=== PATIENT | male | born 1950 | race Caucasian/White ===

== ENCOUNTER 2021-04-23 05:03 | Observation (INO) | payer OTHER, SELFPAY ==
[2021-04-23] VITALS (66 sets, daily range): BP systolic 94–159; BP diastolic 38–108; PULSE 77–100; RESP 12–26; TEMP 35.3–37; O2SAT 84–100; BMI 28.1
--- NOTE | ~2021-04-23 | XR_ITS ---
EXAMINATION: XR chest 2V DATE: 04/24/2021 14:01 INDICATION: Congestive heart failure TECHNIQUE: PA and lateral views of the chest were obtained. COMPARISON: Chest radiograph dated 04/23/2021 FINDINGS: Very small bilateral pleural effusions. There are some streaky atelectasis along the anterior lung ba ses. No pulmonary edema or pneumothorax. Cardiomegaly. Coronary artery stenting. Bridging syndesmophy lili throughout the thoracic spine suggestive of ankylosing spondylitis with differential including di ffuse idiopathic skeletal hyperostosis (DISH). IMPRESSION: 1. Very small bilateral pleural effusions with mild bibasilar atelectasis. 2. Cardiomegaly. Reviewed, dictated and finalized at location A.
--- NOTE | ~2021-04-23 | XR_ITS ---
EXAMINATION: XR chest 1V portable EXAM DATE: 04/23/2021 06:16 INDICATION: chest pain, midsternal pain, history hypertension diabetes CHF. TECHNIQUE: Portable AP frontal chest x-ray was obtained. There is no prior study for comparison. FINDINGS: There is cardiomegaly and pulmonary vascular congestion. Suspicion of pulmonary edema as we ll. No confluent consolidation, pneumothorax or pleural effusion suspected. There are mild bony degen erative changes. Left axillary stent. IMPRESSION: 1. Findings suspicious for mild CHF exacerbation. Reviewed, dictated and finalized at location A.
--- NOTE | ~2021-04-23 | XR_ITS ---
XR chest 1V portable DATE: 04/25/2021 09:23 INDICATION: Shortness of breath TECHNIQUE: Portable AP chest on 04/25 2021 at 0909 hours COMPARISON: 04/24/2021 PA and lateral views FINDINGS: Cardiomegaly. Aortic calcification. There is pulmonary vascular congestion and redistributi on. There are Luis Alberto B-lines consistent with pulmonary interstitial edema. No pulmonary consolidation . No pleural effusion or pneumothorax. Vascular stent is noted in the region of the left axillary artery. Diffuse osteopenia. IMPRESSION: Cardiomegaly, pulmonary vascular congestion and interstitial edema Reviewed, dictated and finalized at location A.
--- NOTE | 2021-04-23 05:25 | ECG_ITS ---
Measurements Intervals [place] Rate: 93 P: -84 [place]: 160 QRS: 7 QRSD: 116 T: 68 QT: 360 QTc: 449 Interpretive Statements SINUS RHYTHM WITH MARKED FIRST DEGREE AV BLOCK INTRAVENTRICULAR CONDUCTION DELAY BORDERLINE ST ABNORMALITY- ANTEROLATERAL LEADS BASELINE ARTIFACT- I, II, III, AVR, AVL, AVF, V1 ABNORMAL ECG Electronically Signed On 04-23-2021 7:11:54 CDT by Romaine Rivers D.O.
--- NOTE | 2021-04-23 05:46 | ED.GENADULT ---
HPI - General Adult General Chief complaint: Chest Pain <Dominick Zamora MD - Last Filed: 04/23/21 05:47> Stated complaint: sob with cp <Dominick Zamoar MD - Last Filed: 04/23/21 05:47> Time Seen by Provider: 04/23/21 05:12 <Dominick Zamora MD - Last Filed: 04/23/21 05:47> History of Present Illness HPI narrative: Patient 70-year-old gentleman who presents the emergency department with chief complaint of shortness of breath. Patient reports he has history of end-stage renal disease and is on dialysis Wednesday. The patient reports he has been admitted multiple times at [facility] and was just discharged in the last 24 hours. The patient states he went home and has been more short of breath. The patient states he is due for dialysis today but states that he is unable to get a good deep breath and was requiring supplemental oxygen. Patient reports that he had no fever reports has had some nausea with this patient denies vomiting denies diarrhea denies abdominal pain reports he had no chest pain with this <Dominick Zamora MD - Last Filed: 04/23/21 05:47> Related Data Allergies/adverse reactions: Allergies Allergy/AdvReac Type Severity Reaction Status Date / Time No Known Allergies Allergy Verified 04/23/21 05:20 <Dominick Zamora MD - Last Filed: 04/23/21 05:47> Review of Systems Review of Systems: A 10 system review of systems was completed on the patient and is negative except for what is stated in the HPI. Nursing and ancillary documentation was reviewed. <Dominick Zamora MD - Last Filed: 04/23/21 05:47> Exam Narrative: GENERAL: Well-appearing, well-nourished, and in no acute distress. HEAD: Normocephalic, atraumatic. EYES: PERRLA and EOMI. ENT: Nares clear, no rhinorrhea or epistaxis. Mucous membranes moist. NECK: Supple. CHEST: Clear to auscultation. No respiratory distress. HEART: Regular rate and rhythm. No murmur heard. Normal peripheral pulses. ABDOMEN: Soft, nontender, nondistended, normal active bowel sounds. EXTREMITIES: Normal range of motion. No edema. There is an AV fistula present in the left upper extremity SKIN: Warm, dry, no rash. NEURO: No focal deficits. Alert and oriented x3. PSYCH: Normal mood and affect. <Dominick Zamora MD - Last Filed: 04/23/21 05:47> Course Course Emergency Course: DR BAUER <Handy Oh MD - Last Filed: 04/23/21 11:25> Vital Signs Vital signs: Vital Signs Temperature 36.2 C L 04/23/21 05:03 Pulse Rate 93 04/23/21 05:03 Respiratory Rate 20 04/23/21 05:03 Blood Pressure 126/55 L 04/23/21 05:03 Pulse Oximetry 84 L 04/23/21 05:03 Temperature 36.2 C L 04/23/21 05:03 Pulse Rate 86 04/23/21 07:37 Respiratory Rate 13 04/23/21 07:37 Blood Pressure 147/51 H 04/23/21 07:37 Pulse Oximetry 100 04/23/21 07:49 <Dominick Zamora MD - Last Filed: 04/23/21 05:47> Vital Signs Temperature 36.2 C L 04/23/21 05:03 Pulse Rate 93 04/23/21 05:03 Respiratory Rate 20 04/23/21 05:03 Blood Pressure 126/55 L 04/23/21 05:03 Pulse Oximetry 84 L 04/23/21 05:03 Temperature 36.2 C L 04/23/21 05:03 Pulse Rate 86 04/23/21 07:37 Respiratory Rate 13 04/23/21 07:37 Blood Pressure 147/51 H 04/23/21 07:37 Pulse Oximetry 100 04/23/21 07:49 <Handy Oh MD - Last Filed: 04/23/21 11:25> Medical Decision Making Vital Signs Vital Signs: Vital Signs Temperature 36.2 C L 04/23/21 05:03 Pulse Rate 93 04/23/21 05:03 Respiratory Rate 20 04/23/21 05:03 Blood Pressure 126/55 L 04/23/21 05:03 Pulse Oximetry 84 L 04/23/21 05:03 Temperature 36.2 C L 04/23/21 05:03 Pulse Rate 86 04/23/21 07:37 Respiratory Rate 13 04/23/21 07:37 Blood Pressure 147/51 H 04/23/21 07:37 Pulse Oximetry 100 04/23/21 07:49 <Dominick Zamora MD - Last File
[2021-04-23 06:25] LABS: Basophils Absolute Auto 0.1 K/mm3 (0.0-0.1); Basophils Percent Auto 0.5 % (0.2-1.2); Eosinophils Absolute Auto 0.2 K/mm3 (0-0.3); Eosinophils Percent Auto 2.4 % (0-4.4); Hematocrit 27.3 % (42.0-52.0); Hemoglobin 8.6 g/dL (14.0-18.0); Immature Granulocyte Absolute 0.05 K/mm3 (0.00-0.031); Immature Granulocyte Percent A 0.5 % (0-0.5); Lymphocytes Absolute Auto 0.93 K/mm3 (0.9-3.2); Lymphocytes Percent Auto 9.7 % (18.3-44.2); Mean Corpuscular HGB Conc 31.5 g/dl (32-36); Mean Corpuscular Hemoglobin 28.3 pg (26-34); Mean Corpuscular Volume 89.8 fl (80-100); Mean Platelet Volume 11.2 fl (7.4-10.4); Monocytes Absolute Auto 0.5 K/mm3 (0.1-0.6); Monocytes Percent Auto 4.7 % (2.6-8.5); Neutrophils Absolute Auto 7.9 K/mm3 (1.3-6.7); Neutrophils Percent Auto 82.2 % (45.5-73.1); Platelet Count Result 197 k/mm3 (150-375); Red Blood Count 3.04 M/mm3 (4.6-6.20); Red Cell Distribution Width 17.3 % (11.5-14.5); White Blood Count 9.6 K/mm3 (4.5-10.0)
[2021-04-23 06:38] LABS: Alanine Aminotransferase 11 U/L (4-50); Albumin Level 4.3 g/dL (3.5-5.1); Alkaline Phosphatase 145 U/L (38-126); Anion Gap 15 mmol/L (8-16); Aspartate Amino Transferase 21 U/L (17-59); Bilirubin,Total 0.8 mg/dL (0.2-1.3); Blood Urea Nitrogen 48 mg/dL (9-20); Calcium 9.4 mg/dL (8.4-10.2); Carbon Dioxide 24 mmol/L (22-30); Chloride 95 mmol/L (98-107); Estimated CRCL calculation 8 ml/min; Estimated Glomerular Filt Rate 7; Glucose 97 mg/dL (65-110); Lipase 53 U/L (23-300); Potassium 3.8 mmol/L (3.4-5.0); Sodium 134 mmol/L (137-145)
[2021-04-23 06:46] LABS: NT Pro B Type Natriuretic Pept > 35000 pg/mL (5-100)
[2021-04-23 06:52] LABS: INR 3.8; Prothrombin Time 36.3 Seconds (11.1-14.7)
[2021-04-23 07:02] LABS: Troponin I 0.288 ng/mL (0.000-0.034)
[2021-04-23 07:24] LABS: Partial Thromboplastin Time 51.5 SECONDS (22.3-36.8)
--- NOTE | 2021-04-23 07:26 | PC.NURSE ---
Received report from Summer RN no further questions or concerns, pt alert and awake, states he doesn't need anything at this time
--- NOTE | 2021-04-23 07:33 | PC.NURSE ---
PHI request faxed to [facility] at this time.
[2021-04-23 09:37] LABS: Troponin I 0.295 ng/mL (0.000-0.034)
[2021-04-23 12:21] LABS: Troponin I 0.323 ng/mL (0.000-0.034)
--- NOTE | 2021-04-23 12:52 | PC.NURSE ---
Called report to Chelle WILLIAM no further questions or concerns
--- NOTE | 2021-04-23 13:49 | PM.IMHP ---
H&P: HPI History of Present Illness Date/Time: 04/23/21 13:49Thiviki is a 70-year-old male patient who has a history of end-stage renal disease with dialysis on Wednesday. He also has a history of diabetes and congestive heart failure. The patient stated he was just discharged from [facility] the last 24 hours. The patient stated that he is been admitted to [facility] several times this year. The patient typically sees Dr. Sandoval as his household assistant. The patient stated when he was discharged yesterday he initially felt fine but then he started vomiting today. He felt very sick to his stomach. Instead of going to dialysis today he came to the emergency room. The patient lives home alone. The patient also stated that he is more short of breath. He stated that he was assessed for sleep apnea and was told that he does have mild sleep apnea but does not have CPAP machine. The patient does not typically wear oxygen at home but feels that he needs home oxygen. The patient is currently on oxygen at 3 L per nasal cannula. H&H is 8.6 and 27.3. Creatinine is 7.4. Dr. Garcia was consulted for Nephrology. Patient's troponin is 0.288 and 0.323. BNP greater than 35,000. patient denies any shortness of breath at this time but states he short of breath with exertion and he cannot lay flat. The patient has no chest pain. Chest x-ray was read as findings suspicious for mild CHF. Patient's low was pulse ox was noted to be 84%. Patient was given aspirin and normal saline in the emergency room. The patient is being admitted for observation on the date of service of 04/23/2021. Chief Complaint: Dyspnea Review of Systems Review of Systems: All systems reviewed & are unremarkable except as noted in HPI and below Constitutional: Constitutional: Reports as per HPI and Reports no additional constitutional complaints Eyes: Eyes: Reports as per HPI and Reports no additional eye complaints ENT: Reports system reviewed and no additional complaints, except as documented and Reports Normal hearing present Cardiovascular: Cardiovascular: Reports no additional cardiovascular complaints Respiratory: Respiratory: Reports no additional respiratory complaints and Reports no additional respiratory complaints Gastrointestinal: Gastrointestinal: Reports as per HPI and Reports no additional gastrointestinal complaints Musculoskeletal: Musculoskeletal: Reports no additional musculoskeletal complaints Integumentary/Breasts: Skin/Breast: Reports system reviewed and no additional complaints, except as docu and Reports as per HPI Neurologic: Reports system reviewed and no additional complaints, except as documented, Reports as per HPI and Reports Normal hearing present Psychiatric: Psychiatric: Reports no additional psychiatric complaints and Reports as per HPI Endocrine: Endocrine: Reports no additional endocrine complaints Hematologic/Lymphatic: Hematologic/Lymphatic: Reports no additional hematologic/lymphatic complaints Allergic/Immunologic: Allergic/Immunologic: Reports no additional allergic/immunologic complaints PMFSH Past Medical History Medical History (Updated 04/23/21 @ 13:59 by Alaina Mills NP) Anemia of chronic disease AV fistula CHF (congestive heart failure) DM2 (diabetes mellitus, type 2) End-stage renal disease on hemodialysis Generalized anxiety disorder Heart valve disease Hyperlipidemia Hypertension Tobacco abuse Surgical History Surgical History (Updated 04/23/21 @ 13:59 by Alaina Mills NP) Cataract extraction status H/O heart artery stent History of tonsillectomy History of total left hip arthroplasty Hx of cholecystectomy Family History Family History (Updated 04/23/21 @ 14:01 by Alaina Mills NP) Sibling 2019 novel coronavirus-infected pneumonia (NCIP) Mother Heart disease congestive heart failure Father Heart disease Social History Social History (Update
--- NOTE | 2021-04-23 14:00 | ADMGEN ---
This patient, William Valentin, was admitted to IMU Room 204-01 at 1320 on 04-23-21. Patient/family oriented to hospital policies and general routines including ID bracelet, bed and alarms, visiting hours, pain management, procedures, bathroom and other care routines, personal items, smoking policy, room service/diet, and visiting hours. Information on how to activate the Rapid Response Team has been discussed. Patient/Family are encouraged to report perceived risks to care and to ask questions if they do not understand what they are told or what they should do.
[2021-04-23] MEDS: SODIUM CHLORIDE 0.9% IV 1,000 ML 100 ML IV CONT (14:15)
[2021-04-23] MEDS: ONDANSETRON INJ 4 MG/2 ML VIAL IV PUSH (15:00)
--- NOTE | 2021-04-23 16:54 | PM.PNNEP ---
Progress Note: A&P Assessment and Plan (1) End stage renal disease: Code(s): N18.6 - End stage renal disease Status: Chronic Assessment and Plan: HD today and continue M/W/F dialysis schedule follow electrolytes, volume status, and clearance FULL CONSULT to follow. Subjective Date/time seen: 04/23/21 16:54 Tolerating dialysis treatment at the time of my visit (seen on HD at 4:45PM); no apparent distress noted; no other complaints voiced currently. Exam Narrative: General: WD/WN male in NAD Heart: normal S1 and S2; no rub Lungs: decreased at bases Abdomen: soft, nontender, nondistended, positive bowel sounds Extremities: no cyanosis or clubbing; trace edema Skin: warm and dry Objective Data Vital Signs Vital Signs: Vital Signs Temp Pulse Resp BP Pulse Ox 04/23/21 16:30 81 125/57 L 04/23/21 16:15 78 134/57 L 04/23/21 16:00 79 136/59 L 04/23/21 15:45 78 141/59 H 04/23/21 15:30 80 132/58 L 04/23/21 15:15 81 136/62 04/23/21 14:56 84 150/63 H 04/23/21 14:48 36.7 C 85 18 137/64 04/23/21 14:00 90 04/23/21 13:50 36.8 C 84 12 128/108 H 94 04/23/21 12:49 88 18 127/49 L 100 04/23/21 12:48 90 20 159/53 H 04/23/21 12:45 87 17 04/23/21 12:32 86 19 04/23/21 12:31 86 15 114/94 H 04/23/21 12:16 88 22 H 94/65 L 04/23/21 12:15 86 14 04/23/21 12:01 83 17 149/87 H 04/23/21 12:00 86 18 04/23/21 11:48 82 13 138/49 L 100 04/23/21 11:46 83 17 127/41 L 100 04/23/21 11:45 82 15 100 04/23/21 11:44 82 16 144/49 H 100 04/23/21 11:30 85 14 04/23/21 11:15 88 18 04/23/21 11:00 88 19 04/23/21 10:45 87 12 04/23/21 10:30 87 16 04/23/21 10:15 87 15 04/23/21 10:00 88 19 04/23/21 09:45 87 15 04/23/21 09:30 88 21 H 04/23/21 09:15 87 26 H 04/23/21 09:00 90 17 04/23/21 08:45 90 19 04/23/21 08:30 88 16 04/23/21 08:17 87 18 138/52 L 04/23/21 08:15 89 16 90 04/23/21 08:01 91 12 142/74 H 96 04/23/21 08:00 90 20 04/23/21 07:49 100 04/23/21 07:45 91 15 100 04/23/21 07:37 86 13 147/51 H 100 04/23/21 07:32 88 14 147/51 H 100 04/23/21 07:30 91 15 100 04/23/21 07:17 91 13 144/70 H 100 04/23/21 07:15 89 12 100 04/23/21 07:02 89 17 150/48 H 100 04/23/21 07:00 92 16 99 04/23/21 06:46 91 16 147/61 H 93 04/23/21 06:45 92 15 100 04/23/21 06:33 91 17 100 04/23/21 06:32 90 15 151/56 H 100 04/23/21 06:17 89 17 139/62 97 04/23/21 06:11 89 21 H 140/55 L 99 04/23/21 05:03 36.2 C L 93 20 126/55 L 96 Meds/Results Medications: Active Medications Generic Name Dose Route Start Last Admin Trade Name Freq PRN Reason Stop Dose Admin Dextrose 12.5 gm 04/23/21 14:09 Dextrose 50% 25 Gm/50 Ml Syringe IV PUSH PRN PRN Hypoglycemia Protocol Epoetin Alberto-epbx 10,000 units 04/23/21 19:23 Epoetin Alberto-Epbx 10,000 Units/Ml Vial IV PUSH 04/23/21 19:24 ONCE ONE Glucagon 1 mg 04/23/21 14:09 Glucagon For Inj 1 Mg Vial IM PRN PRN Hypoglycemia Protocol Glucose 15 gm 10/13/21 14:09 Glucose Oral Gel 15 Gm Of Glucse In 37.5 Gm Tube PO PRN PRN Hypoglycemia Protocol Acetaminophen 650 mg in 65 mls @ 260 mls/hr 04/23/21 11:21 Ofirmev 650 Mg Ivpb IVPB 04/24/21 11:20 Q6H PRN Mild Pain (1-3) or Fever Albumin Human 50 mls @ 999 mls/hr 04/23/21 12:22 Albutein IVPB 05/23/21 12:21 Q10M PRN HYPOTENSION Dextrose 1,000 mls @ 100 mls/hr 04/23/21 14:09 Dextrose 5% 1,000 Ml IVPB PRN PRN Hypoglycemia Protocol Insulin Aspart 2 - 5 units 04/23/21 17:00 Insulin Aspart (*Bkc) 100 Units/Ml SUB-Q TIDWM OTONIEL Protocol Nicotine 1 patch 04/24/21 09:00 Nicotine (*Pbkc) 21 Mg Patch TRANSDERM QA
[2021-04-23 16:55] LABS: Hepatitis B Surface Antigen Negative (Negative)
[2021-04-23 17:20] LABS: Hepatitis B Surface Anti Res Positive
[2021-04-23 18:49] LABS: Glucose Point of Care 107 mg/dl (65-105)
[2021-04-23] MEDS: rOPINIRole HCL 1 MG TABLET 3 MG PO (20:00)
[2021-04-23] MEDS: QUEtiapine FUMARATE 100 MG TABLET PO (20:00)
[2021-04-23] MEDS: PANTOPRAZOLE 40 MG TABLET PO (20:00)
[2021-04-23 20:23] LABS: Glucose Point of Care 144 mg/dl (65-105)
[2021-04-24] VITALS (15 sets, daily range): BP systolic 120–147; BP diastolic 35–70; PULSE 65–93; RESP 16–20; TEMP 36.4–36.8; O2SAT 92–100
[2021-04-24 04:49] LABS: Basophils Absolute Auto 0.1 K/mm3 (0.0-0.1); Basophils Percent Auto 0.7 % (0.2-1.2); Eosinophils Absolute Auto 0.3 K/mm3 (0-0.3); Eosinophils Percent Auto 3.2 % (0-4.4); Hematocrit 26.3 % (42.0-52.0); Hemoglobin 8.4 g/dL (14.0-18.0); Immature Granulocyte Absolute 0.05 K/mm3 (0.00-0.031); Immature Granulocyte Percent A 0.6 % (0-0.5); Lymphocytes Absolute Auto 1.02 K/mm3 (0.9-3.2); Lymphocytes Percent Auto 11.5 % (18.3-44.2); Mean Corpuscular HGB Conc 31.9 g/dl (32-36); Mean Corpuscular Hemoglobin 28.3 pg (26-34); Mean Corpuscular Volume 88.6 fl (80-100); Mean Platelet Volume 10.6 fl (7.4-10.4); Monocytes Absolute Auto 0.5 K/mm3 (0.1-0.6); Neutrophils Absolute Auto 6.9 K/mm3 (1.3-6.7); Platelet Count Result 206 k/mm3 (150-375); Red Blood Count 2.97 M/mm3 (4.6-6.20); Red Cell Distribution Width 17.3 % (11.5-14.5); White Blood Count 8.9 K/mm3 (4.5-10.0)
[2021-04-24 05:11] LABS: Alanine Aminotransferase 12 U/L (4-50); Albumin Level 4.1 g/dL (3.5-5.1); Alkaline Phosphatase 147 U/L (38-126); Anion Gap 11 mmol/L (8-16); Aspartate Amino Transferase 20 U/L (17-59); Bilirubin,Total 0.6 mg/dL (0.2-1.3); Blood Urea Nitrogen 29 mg/dL (9-20); Calcium 9.5 mg/dL (8.4-10.2); Carbon Dioxide 30 mmol/L (22-30); Chloride 96 mmol/L (98-107); Estimated CRCL calculation 11 ml/min; Estimated Glomerular Filt Rate 11; Glucose 94 mg/dL (65-110); Lactate Dehydrogenase 440 U/L (313-618); Magnesium 1.9 mg/dL (1.6-2.3); Potassium 4.2 mmol/L (3.4-5.0); Sodium 137 mmol/L (137-145)
[2021-04-24 06:00] LABS: Thyroid Stimulating Hormone Reflex 0.686 uIU/mL (0.465-4.68)
[2021-04-24 08:04] LABS: Glucose Point of Care 91 mg/dl (65-105)
[2021-04-24 08:44] LABS: Hemoglobin A1C 5.6 % (<5.7)
[2021-04-24] MEDS: CHOLECALCIFEROL 1,000 UNITS TABLET 2000 UNITS PO (11:18)
[2021-04-24] MEDS: ASPIRIN 81 MG ENTERIC TABLET PO (11:18)
[2021-04-24] MEDS: busPIRone HCL 10 MG TABLET 30 MG PO ×2 (11:18→17:52)
[2021-04-24] MEDS: CLOPIDOGREL BISULFATE 75 MG TABLET PO (11:19)
[2021-04-24] MEDS: cloNIDine HCL 0.1 MG TABLET PO ×3 (11:19→17:53)
[2021-04-24] MEDS: IMIPRAMINE HCL 25 MG TABLET PO (11:20)
[2021-04-24] MEDS: DOCUSATE SODIUM 100 MG CAPSULE PO (11:20)
[2021-04-24] MEDS: FUROSEMIDE 80 MG TABLET PO (11:20)
[2021-04-24] MEDS: FINASTERIDE 5 MG TABLET PO (11:20)
[2021-04-24] MEDS: ISOSORBIDE MONONITRATE 30 MG TAB.ER.24H PO (11:20)
[2021-04-24] MEDS: METOPROLOL SUCCINATE EXT REL 25 MG TABCR PO (11:21)
[2021-04-24] MEDS: PANTOPRAZOLE 40 MG TABLET PO ×2 (11:22→21:09)
[2021-04-24] MEDS: ROSUVASTATIN 10 MG TABLET PO (11:23)
[2021-04-24] MEDS: PREGABALIN (*CRX) 50 MG CAPSULE 100 MG PO (11:29)
--- NOTE | 2021-04-24 12:40 | PM.CNNEP ---
Assessment and Plan Assessment and plan (1) End stage renal disease: Code(s): N18.6 - End stage renal disease Status: Chronic Assessment and Plan: HD yesterday and plan HD tomorrow to maintain M/W/F dialysis schedule follow electrolytes, volume status, and clearance (2) Dyspnea: Qualifiers: Dyspnea type: shortness of breath Qualified Code(s): R06.02 - Shortness of breath Code(s): R06.00 - Dyspnea, unspecified Status: Acute Assessment and Plan: presumably due to pulmonary edema push fluid removal with dialysis in an effort to optimize volume status old records regarding previous Echo requested component of NIC playing a role(?) follow respiratory status (3) Hypertension: Code(s): I10 - Essential (primary) hypertension Status: Chronic Assessment and Plan: reasonable control at this time follow trend of hemodynamics (4) Anemia of chronic disease: Code(s): D63.8 - Anemia in other chronic diseases classified elsewhere Status: Chronic Assessment and Plan: due to ESRD Epogen with HD follow trend of H/H (5) DM2 (diabetes mellitus, type 2): Code(s): E11.9 - Type 2 diabetes mellitus without complications Status: Chronic Assessment and Plan: follow accuchecks glycemic control Will continue to follow. History of Present Illness Reason for Consult Consult date: 04/24/21 Reason for consult: end stage renal disease Chief Complaint Chief complaint: hemodialysis patient,chf,elevated troponin History of Present Illness Narrative: The patient is 70-year-old male patient with a past medical history as outlined below who presented to [facility] Emergency room due to complaints of shortness of breath. He states that his shortness of breath seemed to be more prominent on the morning of admission in association with nausea and vomiting. Apparently, he did not have transportation set up to his outpatient dialysis unit and his dialysis center try to see if 1 of his caregivers could bring him to his dialysis treatment yesterday in effort to get his dialysis treatment done and hopefully improve his symptoms of shortness of breath. For whatever reason, this could not be accomplished and he presented to [facility] ER for further evaluation From my discussion with his outpatient dialysis unit, he was just discharged from [facility] on Wednesday (April 21 2021) and he was supposed to set up his transportation to his dialysis center on the day of admission following discharge from the hospital. He apparently was hospitalized for similar issues with regard to shortness of breath. After his discharge, he initially felt reasonably well up until the next day when he started having the issues and problems with nausea and vomiting subsequently worsened by his shortness of breath. He apparently was assessed for sleep apnea during his hospitalization at [facility] and apparently he does have a degree of this condition but CPAP was not set up on discharge. Given his recurrent and ongoing issues with shortness of breath, the patient feels that he would benefit from home oxygen but I am unclear if he met criteria for this during his last hospitalization. Workup and evaluation emergency room demonstrated the patient to be in no acute distress but reportedly his oxygen saturation was 84% on room air. Routine blood test demonstrated labs consistent with his known history of end-stage renal disease and his CBC was remarkable for anemia with a hemoglobin of 8.6 and hematocrit 27.3. His BNP was greater than 35,000 and his chest x-ray demonstrated evidence of mild CHF. Given his symptoms as well as his complex medical history and recent discharge from the hospital, he was admitted the hospital for dialysis and further intervention. Since his admission, he received dialysis yesterday in effort to darrell
[2021-04-24 12:57] LABS: Glucose Point of Care 121 mg/dl (65-105)
[2021-04-24 14:06] LABS: Prothrombin Time 13.4 Seconds (11.1-14.7)
[2021-04-24 14:24] LABS: Troponin I 0.276 ng/mL (0.000-0.034)
--- NOTE | 2021-04-24 16:40 | PM.IMPN ---
Progress Note: A&P Assessment and Plan (1) FRANCOIS (dyspnea on exertion): Code(s): R06.00 - Dyspnea, unspecified Status: Acute Assessment and Plan: Patient states he has been hospitalized 8 times in the last few months for this - Chest x-ray initially showed mild CHF exacerbation and repeat x-ray after dialysis shows improvement - troponins are elevated but patient has end-stage renal disease which can falsely elevate these enzymes - he is at high risk since he has cardiovascular disease, diabetes, end-stage renal disease, and smokes 2 packs per day. he also has moderate aortic stenosis but the echo states that this has not significantly changed since 2019 - will do stress test in the morning to ensure no pathology. PE seems less likely as there is no tachycardia or hypoxia. may consider CTA of the chest on a dialysis day if stress test is normal - patient needs to quit smoking (2) CHF (congestive heart failure): Qualifiers: Heart failure chronicity: unspecified Heart failure type: unspecified Qualified Code(s): I50.9 - Heart failure, unspecified Code(s): I50.9 - Heart failure, unspecified Status: Chronic Assessment and Plan: resolved. - Echo Earlier this week showed an EF of 71% he also has aortic valve stenosis. The valve area is 1.2 cm. Could be causing his dyspnea on exertion but this is unchanged since 06/10/2020 - consult cardiology (3) Elevated troponin: Code(s): R77.8 - Other specified abnormalities of plasma proteins Status: Acute Assessment and Plan: as above \- no chest pain since being hospitalized (4) Dyspnea: Qualifiers: Dyspnea type: shortness of breath Qualified Code(s): R06.02 - Shortness of breath Code(s): R06.00 - Dyspnea, unspecified Status: Acute Assessment and Plan: As above. The patient does not use oxygen at home. He stated that he recently was diagnosed with mild obstructive sleep apnea after his sleep study. (5) Anemia of chronic disease: Code(s): D63.8 - Anemia in other chronic diseases classified elsewhere Status: Chronic Assessment and Plan: stable, likely due to end-stage renal disease (6) Generalized anxiety disorder: Code(s): F41.1 - Generalized anxiety disorder Status: Chronic Assessment and Plan: chronic and stable (7) DM2 (diabetes mellitus, type 2): Code(s): E11.9 - Type 2 diabetes mellitus without complications Status: Chronic Assessment and Plan: last glucose 121 and A1c 5.6 - continue sliding scale insulin (8) End-stage renal disease on hemodialysis: Code(s): N18.6 - End stage renal disease; Z99.2 - Dependence on renal dialysis Status: Chronic Assessment and Plan: continue dialysis which he usually does on Wednesday, Wednesday and Fridays (9) Macular degeneration: Code(s): H35.30 - Unspecified macular degeneration Status: Chronic Assessment and Plan: chronic and stable (10) Hypertension: Code(s): I10 - Essential (primary) hypertension Status: Chronic Assessment and Plan: last blood pressure 146/41 - continue clonidine, Lasix, Imdur, and metoprolol (11) Tobacco abuse: Code(s): Z72.0 - Tobacco use Status: Chronic Assessment and Plan: patient understands that he needs to quit smoking Additional Plan INR initially elevated but repeat was normal at 1.0. Unclear of clinical significance. Could be a lab error? Patient is not on any anticoagulation and has no evidence of liver disease. Will monitor Time Spent With Patient Time with patient: 25 - 35 minutes Subjective Date/time seen: 04/24/21 16:40 Interval history: Pt is a 70-year-old male here for dyspnea on exertion. Patient states he has been having this dyspnea on exertion for the last 1-2 months. He said prior
[2021-04-24 17:09] LABS: Glucose Point of Care 124 mg/dl (65-105)
[2021-04-24] MEDS: HYDROcodone/acetaminophen (*CRX) 7.5-325 MG TABLET 1 TAB PO (17:55)
[2021-04-24 20:21] LABS: Glucose Point of Care 119 mg/dl (65-105)
[2021-04-24] MEDS: rOPINIRole HCL 1 MG TABLET 3 MG PO (21:08)
[2021-04-24] MEDS: QUEtiapine FUMARATE 100 MG TABLET PO (21:08)
[2021-04-25] VITALS (18 sets, daily range): BP systolic 119–161; BP diastolic 43–68; PULSE 57–77; RESP 20; TEMP 36–37; O2SAT 94–98
[2021-04-25 06:38] LABS: Hematocrit 27.8 % (42.0-52.0); Hemoglobin 8.5 g/dL (14.0-18.0); Mean Corpuscular HGB Conc 30.6 g/dl (32-36); Mean Corpuscular Hemoglobin 28.3 pg (26-34); Mean Corpuscular Volume 92.7 fl (80-100); Mean Platelet Volume 11.3 fl (7.4-10.4); Platelet Count Result 204 k/mm3 (150-375); Red Cell Distribution Width 17.2 % (11.5-14.5); White Blood Count 8.3 K/mm3 (4.5-10.0)
[2021-04-25 06:40] LABS: Prothrombin Time 13.2 Seconds (11.1-14.7)
[2021-04-25 07:14] LABS: Albumin Level 4.2 g/dL (3.5-5.1); Anion Gap 12 mmol/L (8-16); Blood Urea Nitrogen 46 mg/dL (9-20); Calcium 9.4 mg/dL (8.4-10.2); Carbon Dioxide 28 mmol/L (22-30); Chloride 96 mmol/L (98-107); Estimated CRCL calculation 8 ml/min; Estimated Glomerular Filt Rate 7; Glucose 104 mg/dL (65-110); Phosphorus 6.4 mg/dL (2.5-4.5); Potassium 4.8 mmol/L (3.4-5.0); Sodium 136 mmol/L (137-145)
--- NOTE | 2021-04-25 09:04 | PM.CNCAR ---
Assessment and Plan Assessment and plan (1) FRANCOIS (dyspnea on exertion): Code(s): R06.00 - Dyspnea, unspecified <AMY Jung - Last Filed: 04/25/21 15:26> Status: Acute <Payton Miranda AMY Fernandez - Last Filed: 04/25/21 15:26> Assessment and Plan: Multiple hospital admissions recently for this reason. Probably multifactorial. He is a long time smoker with and is currently smoking 1-2 packs of cigarettes a day, possible chronic lung disease though he has not been diagnosed with COPD. He does also have moderate aortic stenosis which could be contributing to his shortness of breath, though this is unchanged on recent echo compared to echo in 2020. Echo from 04/21/2021 showed normal LV systolic function with an EF of 71%. Possible diastolic dysfunction, though he appears euvolemic on exam. Initial CXR did show pulmonary vascular congestion with improvement after dialysis treatment, dyspnea could be caused by volume overload. <AMY Jung - Last Filed: 04/25/21 15:26> (2) Elevated troponin: Code(s): R77.8 - Other specified abnormalities of plasma proteins <AMY Jung - Last Filed: 04/25/21 15:26> Status: Acute <AMY Jung - Last Filed: 04/25/21 15:26> Assessment and Plan: Not experiencing any chest pain currently or since admission. Troponin leak unlikely to be due to myocardial ischemia. However, he does have a history of coronary disease with LHC and stent ~3 years ago and he has multiple risk factors. Unknown which artery was intervened upon - records have been requested. Will proceed with lexiscan stress test today. <AMY Jung - Last Filed: 04/25/21 15:26> (3) End stage renal disease: Code(s): N18.6 - End stage renal disease <AMY Jung - Last Filed: 04/25/21 15:26> Status: Chronic <AMY Jung - Last Filed: 04/25/21 15:26> Assessment and Plan: On hemodialysis. Renal is following. <AMY Jung - Last Filed: 04/25/21 15:26> (4) CHF (congestive heart failure): Qualifiers: Heart failure chronicity: unspecified Heart failure type: unspecified Qualified Code(s): I50.9 - Heart failure, unspecified <AMY Jung - Last Filed: 04/25/21 15:26> Code(s): I50.9 - Heart failure, unspecified <AMY Jung - Last Filed: 04/25/21 15:26> Status: Chronic <AMY Jung - Last Filed: 04/25/21 15:26> Assessment and Plan: Recent echo showed normal LVEF (71%), normal wall motion, moderate aortic stenosis with valve area of 1.2 cm2. Not currently exhibiting any s/s CHF exacerbation on exam. Proceed with dialysis treatment today as planned. 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 Luke to follow his aortic stenosis and CAD <AMY Jung - Last Filed: 04/25/21 15:26> (5) Tobacco abuse: Code(s): Z72.0 - Tobacco use <AMY Jung - Last Filed: 04/25/21 15:26> Status: Chronic <AMY Jung - Last Filed: 04/25/21 15:26> Assessment and Plan: He is currently smoking 1-2 packs/day. He was counseled on smoking cessation but states he is going to continue smoking when he goes home. <AMY Jung - Last Filed: 04/25/21 15:26> Additional Plan Attending Addendum: I personally seen and examined this patient at bedside. I agree with the above documentation and plan of care as outlined. 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 Echocardiogram at that institution recently revealed EF 70% RVSP 58 mm Hg without significant valvular pathology. He follows with Dr. Underwood for his
[2021-04-25] MEDS: FUROSEMIDE 80 MG TABLET PO (09:22)
[2021-04-25] MEDS: PREGABALIN (*CRX) 50 MG CAPSULE 100 MG PO (09:22)
[2021-04-25] MEDS: busPIRone HCL 10 MG TABLET 30 MG PO (09:23)
[2021-04-25] MEDS: ROSUVASTATIN 10 MG TABLET PO (09:23)
[2021-04-25] MEDS: DOCUSATE SODIUM 100 MG CAPSULE PO (09:23)
[2021-04-25] MEDS: CLOPIDOGREL BISULFATE 75 MG TABLET PO (09:23)
[2021-04-25] MEDS: IMIPRAMINE HCL 25 MG TABLET PO (09:23)
[2021-04-25] MEDS: ASPIRIN 81 MG ENTERIC TABLET PO (09:24)
[2021-04-25] MEDS: ISOSORBIDE MONONITRATE 30 MG TAB.ER.24H PO (09:24)
[2021-04-25] MEDS: FINASTERIDE 5 MG TABLET PO (09:24)
[2021-04-25] MEDS: cloNIDine HCL 0.1 MG TABLET PO ×2 (09:24→14:14)
[2021-04-25] MEDS: PANTOPRAZOLE 40 MG TABLET PO (09:24)
[2021-04-25] MEDS: CHOLECALCIFEROL 1,000 UNITS TABLET 1000 UNITS PO (09:24)
[2021-04-25] MEDS: METOPROLOL SUCCINATE EXT REL 25 MG TABCR PO (09:24)
[2021-04-25] MEDS: HYDROcodone/acetaminophen (*CRX) 7.5-325 MG TABLET 1 TAB PO ×2 (09:29→12:04)
[2021-04-25] MEDS: EPOETIN ALFA-EPBX 10,000 UNITS/ML VIAL 10000 UNITS IV PUSH (10:00)
[2021-04-25 10:14] LABS: Glucose Point of Care 100 mg/dl (65-105)
[2021-04-25] MEDS: ONDANSETRON INJ 4 MG/2 ML VIAL IV PUSH (12:05)
--- NOTE | 2021-04-25 12:45 | PM.PNNEP ---
Progress Note: A&P Assessment and Plan (1) End stage renal disease: Code(s): N18.6 - End stage renal disease Status: Chronic Assessment and Plan: HD today and continue M/W/F dialysis schedule follow electrolytes, volume status, and clearance (2) Dyspnea: Qualifiers: Dyspnea type: shortness of breath Qualified Code(s): R06.02 - Shortness of breath Code(s): R06.00 - Dyspnea, unspecified Status: Acute Assessment and Plan: presumably due to pulmonary edema push fluid removal with dialysis in an effort to optimize volume status old records regarding previous Echo requested component of NIC playing a role(?) follow respiratory status (3) Hypertension: Code(s): I10 - Essential (primary) hypertension Status: Chronic Assessment and Plan: reasonable control at this time follow trend of hemodynamics (4) Anemia of chronic disease: Code(s): D63.8 - Anemia in other chronic diseases classified elsewhere Status: Chronic Assessment and Plan: due to ESRD Epogen with HD follow trend of H/H (5) DM2 (diabetes mellitus, type 2): Code(s): E11.9 - Type 2 diabetes mellitus without complications Status: Chronic Assessment and Plan: follow accuchecks glycemic control Will continue to follow. Subjective Date/time seen: 04/25/21 12:45 Tolerating dialysis treatment at the time of my visit (seen on HD at ~ 12:20PM); breathing/respiratory status seems stable at this time; no issues or events overnight or earlier this AM; no apparent distress. Exam Narrative: General: WD/WN male in NAD Heart: normal S1 and S2; no rub Lungs: decreased at bases Abdomen: soft, nontender, nondistended, positive bowel sounds Extremities: no cyanosis or clubbing; no edema Skin: warm and dry Objective Data Vital Signs Vital Signs: Vital Signs Temp Pulse Resp BP Pulse Ox 04/25/21 12:15 67 160/65 H 04/25/21 11:45 66 161/61 H 04/25/21 11:30 60 147/61 H 04/25/21 11:00 57 L 142/58 H 04/25/21 10:30 60 137/61 04/25/21 10:00 59 L 04/25/21 09:45 59 L 119/60 04/25/21 09:40 36.7 C 69 20 153/66 H 04/25/21 08:00 36.2 C L 71 20 150/49 H 98 04/25/21 06:00 63 04/25/21 04:00 36.0 C L 77 20 127/45 L 94 04/25/21 02:00 61 04/25/21 00:00 36.3 C L 61 125/43 L 97 04/24/21 22:47 96 04/24/21 22:00 69 04/24/21 20:00 69 04/24/21 19:11 36.7 C 71 18 132/70 96 04/24/21 18:00 80 04/24/21 16:00 36.6 C 71 20 146/41 H 96 04/24/21 14:00 88 Intake/Output Intake/Output: Intake & Output 04/22/21 04/23/21 04/24/21 04/25/21 23:59 23:59 23:59 23:59 Intake Total 880 1240 500 Output Total 2500 Balance -1620 1240 500 Meds/Results Medications: Active Medications Generic Name Dose Route Start Last Admin Trade Name Freq PRN Reason Stop Dose Admin Hydrocodone Bitart/Acetaminophen 1 tab 04/23/21 17:54 04/25/21 12:04 Hydrocodone/Acetaminophen (*Crx) 7.5-325 Mg Tablet PO 1 tab TID PRN Administration Pain Aspirin 81 mg 04/24/21 09:00 04/25/21 09:24 Aspirin 81 Mg Enteric Tablet PO 81 mg DAILY OTONIEL Administration Buspirone HCl 30 mg 04/24/21 09:00 04/25/21 09:23 Buspirone Hcl 10 Mg Tablet PO 30 mg BID OTONIEL Administration Clonidine HCl 0.1 mg 04/24/21 09:00 04/25/21 09:24 Clonidine Hcl 0.1 Mg Tablet PO 0.1 mg TID OTONIEL Administration Clopidogrel Bisulfate 75 mg 04/24/21 09:00 04/25/21 09:23 Clopidogrel Bisulfate 75 Mg Tablet PO 75 mg DAILY OTONIEL Administration Dextrose 12.5 gm 04/23/21 14:09 Dextrose 50% 25 Gm/50 Ml Syringe IV PUSH PRN PRN Hypoglycemia Protocol Docusate Sodium 100 mg 04/24/21 09:00 04/25/21 09:23 Docusate Sodium 100 Mg Capsule PO 100 mg DAILY OTONIEL Administration Epoetin Alberto-epbx 10,000 units 04/25/21 19:37 04/25/21
[2021-04-25 14:15] LABS: Glucose Point of Care 88 mg/dl (65-105)
--- NOTE | 2021-04-26 08:18 | PM.DS ---
DS: Admitting Diagnosis Discharge Date 04/25/21 Admitting Diagnosis sob DS: Discharge Diagnosis Discharge Diagnosis (1) FRANCOIS (dyspnea on exertion): Code(s): R06.00 - Dyspnea, unspecified Status: Acute Assessment and Plan: Patient states he has been hospitalized 8 times in the last few months for this - Chest x-ray initially showed mild CHF exacerbation improving after dialysis - troponins are elevated but patient has end-stage renal disease which can falsely elevate these enzymes - he is at high risk since he has cardiovascular disease, diabetes, end-stage renal disease, and smokes 2 packs per day. he also has moderate aortic stenosis but the echo states that this has not significantly changed since 2019 -Stress test will be done outpt. PE seems less likely as there is no tachycardia or hypoxia. - patient needs to quit smoking -day of discharge pt was feeling the best he has felt in awhile . He agreed to f/u for outpt for this. PE does not seem likely as above (2) CHF (congestive heart failure): Qualifiers: Heart failure chronicity: unspecified Heart failure type: unspecified Qualified Code(s): I50.9 - Heart failure, unspecified Code(s): I50.9 - Heart failure, unspecified Status: Chronic Assessment and Plan: resolved. -Echo Earlier this week showed an EF of 71% he also has aortic valve stenosis. The valve area is 1.2 cm. Could be causing his dyspnea on exertion but this is unchanged since 06/10/2020 -repeat CXR before dialysis shows possible CHF. 2500ml removed and pt was feeling much better. continue home medications. (3) Elevated troponin: Code(s): R77.8 - Other specified abnormalities of plasma proteins Status: Acute Assessment and Plan: as above - no chest pain since being hospitalized (4) Dyspnea: Qualifiers: Dyspnea type: shortness of breath Qualified Code(s): R06.02 - Shortness of breath Code(s): R06.00 - Dyspnea, unspecified Status: Acute Assessment and Plan: As above. The patient does not use oxygen at home. He stated that he recently was diagnosed with mild obstructive sleep apnea after his sleep study. (5) Anemia of chronic disease: Code(s): D63.8 - Anemia in other chronic diseases classified elsewhere Status: Chronic Assessment and Plan: stable, likely due to end-stage renal disease (6) Generalized anxiety disorder: Code(s): F41.1 - Generalized anxiety disorder Status: Chronic Assessment and Plan: chronic and stable (7) DM2 (diabetes mellitus, type 2): Code(s): E11.9 - Type 2 diabetes mellitus without complications Status: Chronic Assessment and Plan: last glucose 88 and A1c 5.6 (8) End-stage renal disease on hemodialysis: Code(s): N18.6 - End stage renal disease; Z99.2 - Dependence on renal dialysis Status: Chronic Assessment and Plan: continue dialysis which he usually does on Wednesday, Wednesday and Fridays (9) Macular degeneration: Code(s): H35.30 - Unspecified macular degeneration Status: Chronic Assessment and Plan: chronic and stable (10) Hypertension: Code(s): I10 - Essential (primary) hypertension Status: Chronic Assessment and Plan: last blood pressure 155/68 - continue clonidine, Lasix, Imdur, and metoprolol (11) Tobacco abuse: Code(s): Z72.0 - Tobacco use Status: Chronic Assessment and Plan: patient understands that he needs to quit smoking DS: Summary Hospital Course Hospital Course: DOS 04/25/21 patient is a 70-year-old male who typically goes to [facility] [place] who came to [facility] complaints of shortness of breath and dyspnea on exertion. vitals in the ER were temperature 36.2? C, pulse 93, respiratory rate 20, blood pressure 126/55, 84% room air.
[2021-04-26 19:35] LABS: Hepatitis B Core Ab Total Nonreactive (Nonreactive)
--- NOTE | 2021-05-01 12:20 | PC.NURSE ---
Blood cx are negative.
== END 2021-04-25 16:51 | disposition home or self-care (01) ==
LOC: ANHED 09:59 → ANHIMU 12:02
PROVIDERS: Emergency Medicine; Internal Medicine Nephrology; Nurse Practitioner; Physician Assistant; Admitting Provider Family Medicine; Emergency Provider Emergency Medicine; PCP Family Medicine; Visit Provider Internal Medicine
DX: R06.00 Dyspnea, unspecified (principal); N18.6 End stage renal disease; Z99.2 Dependence on renal dialysis; I50.9 Heart failure, unspecified; I13.2 Hypertensive heart and chronic kidney disease with heart failure and with stage 5 chronic kidney disease, or end stage renal disease; R77.8 Other specified abnormalities of plasma proteins; D63.1 Anemia in chronic kidney disease; E11.22 Type 2 diabetes mellitus with diabetic chronic kidney disease; E78.5 Hyperlipidemia, unspecified; F17.210 Nicotine dependence, cigarettes, uncomplicated; G47.33 Obstructive sleep apnea (adult) (pediatric); I38 Endocarditis, valve unspecified
CPT/HCPCS: 36415; 71045; 71046; 80053; 80069; 82948; 83036; 83615; 83690; 83735; 83880; 84443; 84484; 85025; 85027; 85610; 85730; 86704; 86706; 87040; 87340; 93005; 96374; 96375; 96376; 99285; A9270; G0257; G0378; J2405; J7030; Q5105

== ENCOUNTER 2021-04-27 04:03 | Inpatient (IN) | payer OTHER, SELFPAY ==
[2021-04-27] VITALS (31 sets, daily range): BP systolic 115–160; BP diastolic 42–62; PULSE 58–101; RESP 10–38; TEMP 36.2–36.7; O2SAT 87–100; BMI 28.5
--- NOTE | 2021-04-27 | EST_ITS ---
Patient Info Name: William Valentin Age: 70 years : 1950 Gender: Male Ht: 69 in Wt: 193 lbs BSA: 2.08 m2 HR: 64 bpm BP: 121 / 51 mmHg Heart Rhythm: Sinus Rhythm Exam Date: 04/28/2021 2:28 PM Exam Location: [facility] Stress Patient Status: Inpatient Admit Date: 04/27/2021 Staff Ordering Physician: Diony Lund MD Attending Provider: Naveen Almonte MD Exercise Technologist: Jeanine Rodriguez CT Exercise Physician: Diony Lund MD Exam Type: CA stress lottie w NM Study Info Indications R06.00 - Dyspnea, unspecified I25.10 - Atherosclerotic heart disease of lummi coronary artery without angina pectoris A regadenoson stress test was performed. Summary 1. Normal sinus rhythm. 2. Meets criteria for left ventricular hypertrophy. 3. No abnormal ST/T wave changes with exercise. 4. Clinically and electrocardiographically uneventful Lexiscan stress test. 5. Myocardial perfusion imaging exam to be dictated by the Radiology Department. Protocol: Lexiscan Stress ECG Details Stage: REST Duration (min): 1 min : 24 sec HR (bpm): 64 SBP (mmHg): 121 DBP (mmHg): 51 Stage: REST Duration (min): 5 min : 48 sec HR (bpm): 63 SBP (mmHg): 121 DBP (mmHg): 51 Stage: STAGE 1 Duration (min): 0 min : 19 sec HR (bpm): 63 SBP (mmHg): 120 DBP (mmHg): 48 Stage: STAGE 1 Duration (min): 1 min : 0 sec HR (bpm): 64 SBP (mmHg): 120 DBP (mmHg): 48 Stage: RECOVERY Duration (min): 1 min : 0 sec HR (bpm): 74 SBP (mmHg): 120 DBP (mmHg): 48 Stage: RECOVERY Duration (min): 2 min : 0 sec HR (bpm): 73 SBP (mmHg): 120 DBP (mmHg): 48 Stage: RECOVERY Duration (min): 3 min : 0 sec HR (bpm): 72 SBP (mmHg): 117 DBP (mmHg): 44 Stage: RECOVERY Duration (min): 3 min : 38 sec HR (bpm): 71 SBP (mmHg): 117 DBP (mmHg): 44 Rest HR: 63 bpm Peak HR: 74 bpm Rest Sys BP: 120 mmHg Peak Sys BP: 117 mmHg Max Pred HR: 149 bpm % Max Pred HR: 50 % Target HR: 127 bpm Max RPP: 8,658 bpm*mmHg BP Response: Normal blood pressure response Termination Reason: Completed protocol Cardiac Symptoms: None Total Time: 1 min : 0 sec Rest Ashraf BP: 48 mmHg Peak Ashraf BP: 44 mmHg Total Dose: 0.4 mg Resting ECG Normal sinus rhythm. Meets criteria for left ventricular hypertrophy. Stress ECG No abnormal ST/T wave changes with exercise. Report Signatures
--- NOTE | ~2021-04-27 | XR_ITS ---
XR chest 1V portable 04/27/2021 04:49 Indication: Respiratory distress. Hypertension. CHF. Procedure: AP view of the chest Comparison: 04/25/2021 Findings: Cardiomegaly with interstitial edema. No significant effusion or pneumothorax. There is a v ascular stent in the left axilla. No acute osseous abnormality. Impression: 1: Cardiomegaly with mild interstitial edema. Reviewed, dictated and finalized at location A. Impression: 1: Cardiomegaly with mild interstitial edema.
--- NOTE | ~2021-04-27 | US_ITS ---
EXAMINATION: US venous doppler UE DATE: 04/27/2021 14:25 INDICATION: Elevated d-dimer. TECHNIQUE: Lovett scale images with and without compression and Doppler images of the right and left up per extremity veins were obtained. COMPARISON: None. FINDINGS: The right and left internal jugular vein, subclavian vein, axillary vein, brachial veins, basilic vei n, cephalic vein, radial vein, and ulnar vein are patent. The left-sided dialysis graft is patent. IMPRESSION: 1. Patent bilateral upper extremity veins. No evidence of deep venous thrombosis. Reviewed, dictated and finalized at location A. IMPRESSION: 1. Patent bilateral upper extremity veins. No evidence of deep venous thrombosi s.
--- NOTE | ~2021-04-27 | US_ITS ---
EXAMINATION: US venous doppler [facility] DATE: 04/27/2021 15:17 INDICATION: Respiratory distress. TECHNIQUE: Grayscale ultrasound images without and with compression and Doppler ultrasound images of the bilateral lower extremity veins were obtained. COMPARISON: None. FINDINGS: The visualized portions of right common femoral vein, profunda (deep) femoral vein, femoral vein, pop liteal vein, peroneal veins, posterior tibial veins, and greater saphenous vein outflow are patent. The visualized portions of left common femoral vein, profunda femoral vein, femoral vein, popliteal v ein, peroneal veins, posterior tibial veins, and greater saphenous vein outflow are patent. IMPRESSION: 1. No deep venous thrombosis. Reviewed, dictated and finalized at location A.
--- NOTE | ~2021-04-27 | CT_ITS ---
EXAMINATION: CTA chest PE protocol DATE: 04/28/2021 11:12 INDICATION: Shortness of breath. TECHNIQUE: Computed tomography angiography (CTA) of the chest was performed with 100 mL Omnipaque-350 intravenous contrast timed to evaluate the pulmonary arteries. Coronal maximum intensity projection 3D-reconstructions were created by the technologist. Automated exposure control and iterative reconst ruction technique were employed. The dose-length product was 595.85 mGy-cm. COMPARISON: None. FINDINGS: There is diffuse smooth septal thickening in the lungs, consistent with pulmonary edema. Th ere are small patchy airspace opacities in the upper lobes with cavitation widely opacities. There ar e dependent airspace opacities in the lungs with normal enhancement. Cardiomegaly is noted. There are coronary artery calcifications. There are extensive calcifications of aortic valve. The central pulm onary arteries are enlarged, consistent with pulmonary arterial hypertension. There is no pulmonary e mbolus. There is mild mediastinal and right hilar lymphadenopathy. There is a 10 mm nodule in right t hyroid lobe, likely not clinically significant. There is bilateral gynecomastia. Calcifications in th e liver and spleen are consistent with old granulomatous disease. There are cysts in left kidney fely uring up to 2.4 cm. There is mild gastrohepatic and periportal lymphadenopathy. There are bridging en dplate osteophytes at multiple levels in the spine, consistent with diffuse idiopathic skeletal hyper ostosis (DISH). There is a hemangioma in T11 vertebral body. IMPRESSION: 1. No pulmonary embolus. Sensitivity is mildly decreased by motion artifact. 2. Mild pulmonary edema and small pleural effusions. 3. Small airspace opacities in the upper lobes with cavitation of one of the opacities, likely pneumo marisa. 4. Mild mediastinal, right hilar, and abdominal lymphadenopathy, which may be reactive. Reviewed, dictated and finalized at location A. IMPRESSION: 1. No pulmonary embolus. Sensitivity is mildly decreased by motion artifact. 2. Mild pulmonary edema and small pleural effusions. 3. Small airspace opacities in the upper lobes with cavitation of one of the op acities, likely pneumonia. 4. Mild mediastinal, right hilar, and abdominal lymphadenopathy, which may be r eactive.
--- NOTE | ~2021-04-27 | NM_ITS ---
EXAMINATION: NM lottie stress w perfusion DATE: 04/28/2021 15:28 INDICATION: Coronary atherosclerosis. TECHNIQUE: Rest images were obtained following intravenous administration of 9.9 mCi Tc99m tetrofosmi n (Myoview). The patient was infused intravenously with Lexiscan (regadenoson). Then, 29.4 mCi Tc99m tetrofosmin (Myoview) was administered intravenously, and stress images were obtained. Data was recon structed into short axis and horizontal and vertical long axis SPECT images. Gated SPECT images were also obtained. COMPARISON: Chest CT 04/28/2021 FINDINGS: There is a small, mild, fixed perfusion defect involving apical to mid inferior wall of lef t ventricle, consistent with infarct. There is a large, mild, fixed perfusion defect involving apical to basal anterior and mid to basal anterolateral segments of left ventricle, consistent with infarct . No reversible component to suggest ischemia.. There is no segmental wall motion abnormality. Left ventricular ejection fraction measures 47%. IMPRESSION: 1. Small area of mild infarct involving apical to mid inferior wall of left ventricle. 2. Large area of mild infarct involving apical to basal anterior and mid to basal anterolateral segme nts of left ventricle. 3. Left ventricular ejection fraction measuring 47%. Reviewed, dictated and finalized at location A. IMPRESSION: 1. Small area of mild infarct involving apical to mid inferior wall of left grisel tricle. 2. Large area of mild infarct involving apical to basal anterior and mid to bas al anterolateral segments of left ventricle. 3. Left ventricular ejection fraction measuring 47%.
--- NOTE | 2021-04-27 04:12 | ECG_ITS ---
Measurements Intervals [place] Rate: 94 P: 248 WV: 284 QRS: 10 QRSD: 106 T: 88 QT: 351 QTc: 441 Interpretive Statements SINUS RHYTHM WITH FIRST DEGREE AV BLOCK DELAYED PRECORDIAL R/S TRANSITION LEFT VENTRICULAR HYPERTROPHY AND ST-T CHANGE BORDERLINE ST-T WAVE ABNORMALITY- HIGH LATERAL LEADS BASELINE ARTIFACT- I, II, III, AVR, AVL, AVF ABNORMAL ECG Electronically Signed On 04-27-2021 6:44:13 CDT by Romaine Rivers D.O.
[2021-04-27 04:31] LABS: Basophils Absolute Auto 0.1 K/mm3 (0.0-0.1); Basophils Percent Auto 0.7 % (0.2-1.2); Eosinophils Absolute Auto 0.4 K/mm3 (0-0.3); Eosinophils Percent Auto 3.1 % (0-4.4); Hemoglobin 9.2 g/dL (14.0-18.0); Immature Granulocyte Absolute 0.07 K/mm3 (0.00-0.031); Immature Granulocyte Percent A 0.6 % (0-0.5); Lymphocytes Absolute Auto 1.49 K/mm3 (0.9-3.2); Lymphocytes Percent Auto 12.9 % (18.3-44.2); Mean Corpuscular HGB Conc 30.7 g/dl (32-36); Mean Corpuscular Hemoglobin 28.3 pg (26-34); Mean Corpuscular Volume 92.3 fl (80-100); Mean Platelet Volume 10.2 fl (7.4-10.4); Monocytes Absolute Auto 0.7 K/mm3 (0.1-0.6); Monocytes Percent Auto 5.8 % (2.6-8.5); Neutrophils Absolute Auto 8.9 K/mm3 (1.3-6.7); Neutrophils Percent Auto 76.9 % (45.5-73.1); Platelet Count Result 251 k/mm3 (150-375); Red Blood Count 3.25 M/mm3 (4.6-6.20); Red Cell Distribution Width 17.7 % (11.5-14.5); White Blood Count 11.6 K/mm3 (4.5-10.0)
[2021-04-27 04:35] LABS: Alveolar/Arterial O2 Gradient 327.1 mmHg; Base Excess ABG -1.7 mEq/l (+/-2.0); Carboxyhemoglobin 5.3 % THb (0-2.0); Fractional Inspired Oxygen 60 %; HCO3 ABG 22.7 mEq/l (22.0-26.0); Methemoglobin ABG 0.1 %THb (0-1.5); Oxygen Content ABG 11.8 %vol (16.0-22.0); Oxygen Saturation ABG 91.5 % (95.0-100.0); PCO2 ABG 36.8 mmHg (35.0-45.0); PO2 ABG 60.2 mmHg (80.0-100.0); Reduced Hemoglobin 9.6 %THb (0-5.0); Total Hemoglobin 9.8 g/dL (12.0-18.0); pH ABG 7.408 (7.350-7.450)
[2021-04-27 04:36] LABS: Device BIPAP; Modified Allen's Test Pass; Site Drawn RIGHT RADIAL
[2021-04-27 04:41] LABS: Expiratory Pressure 12 cmH2O
[2021-04-27 04:45] LABS: Prothrombin Time 13.3 Seconds (11.1-14.7)
[2021-04-27 04:46] LABS: Partial Thromboplastin Time 34.2 SECONDS (22.3-36.8)
[2021-04-27 04:49] LABS: Anion Gap 16 mmol/L (8-16); Blood Urea Nitrogen 35 mg/dL (9-20); Calcium 9.5 mg/dL (8.4-10.2); Carbon Dioxide 28 mmol/L (22-30); Chloride 97 mmol/L (98-107); Estimated Glomerular Filt Rate 8; Glucose 148 mg/dL (65-110); Potassium 4.8 mmol/L (3.4-5.0); Sodium 141 mmol/L (137-145)
[2021-04-27 05:06] LABS: NT Pro B Type Natriuretic Pept > 35000 pg/mL (5-100); Troponin I 0.492 ng/mL (0.000-0.034)
--- NOTE | 2021-04-27 05:50 | ED.SOB ---
HPI - SOB/Dyspnea General Chief Complaint: Shortness of Breath/Dyspnea Stated Complaint: SOB Time Seen by Provider: 04/27/21 04:09 Source: patient and EMS Mode of arrival: EMS Limitations: no limitations History of Present Illness HPI Narrative: This is a 70 year old male with history of CHF, ESRD on dialysis, aortic stenosis who presents for evaluation of respiratory distress. Patient was discharged from [place] 2 days ago with similar symptoms but he states his shortness of breath is worse tonight. EMS reports patient was 80% on room air when they picked him up from home. He was found have some wheezing so he was giving puffs from albuterol inhaler and placed on nonrebreather mask. In route to ER , EMS reports patient oxygen dropped to 80s on NRB so he was placed on CPAP. Patient reports continued shortness of breath . HE denies chest pain, nausea, vomiting , fever or chills. He last had dialysis on Wednesday when he was discharged. He is due to be dialyzed again on Wednesday. Related Data Home Medications Medication Instructions Recorded Confirmed Velphoro 500 mg PO TID 04/23/21 04/23/21 aspirin 81 mg PO DAILY 04/23/21 04/23/21 buspirone 30 mg PO BID 04/23/21 04/23/21 cholecalciferol (vitamin D3) 50 mcg PO EVERY OTHER DAY 04/23/21 04/23/21 [Vitamin D3] cholecalciferol (vitamin D3) 100 mcg PO EVERY OTHER DAY 04/23/21 04/23/21 [Vitamin D3] clonidine HCl 0.1 mg PO TID 04/23/21 04/23/21 clopidogrel 75 mg PO DAILY 04/23/21 04/23/21 docusate sodium 100 mg PO DAILY 04/23/21 04/23/21 finasteride 5 mg PO DAILY 04/23/21 04/23/21 furosemide 80 mg PO DAILY 04/23/21 04/23/21 hydrocodone-acetaminophen 1 tablet PO TID PRN 04/23/21 04/23/21 imipramine HCl 25 mg PO DAILY 04/23/21 04/23/21 isosorbide mononitrate 30 mg PO DAILY 04/23/21 04/23/21 metoprolol succinate 25 mg PO DAILY 04/23/21 04/23/21 nicotine 1 patch TRANSDERMAL DAILY 04/23/21 04/23/21 omeprazole 20 mg PO BID 04/23/21 04/23/21 pregabalin 100 mg PO DAILY 04/23/21 04/23/21 quetiapine 100 mg PO DAILY 04/23/21 04/23/21 ropinirole 3 mg PO HS 04/23/21 04/23/21 rosuvastatin 10 mg PO DAILY 04/23/21 04/23/21 Allergies Allergy/AdvReac Type Severity Reaction Status Date / Time adhesive tape AdvReac Unknown Verified 04/27/21 04:27 ibuprofen AdvReac Unknown Verified 04/23/21 14:02 Review of Systems Review of Systems: All systems reviewed & are unremarkable except as noted in HPI and below PMFSH Past Medical History Medical History Anemia of chronic disease AV fistula CHF (congestive heart failure) DM2 (diabetes mellitus, type 2) End-stage renal disease on hemodialysis Generalized anxiety disorder Hypertension Tobacco abuse Surgical History Surgical History Cataract extraction status H/O heart artery stent History of tonsillectomy History of total left hip arthroplasty Hx of cholecystectomy Family History Family History Sibling 2019 novel coronavirus-infected pneumonia (NCIP) Mother Heart disease congestive heart failure Father Heart disease Social History Social History Social History: the patient stated that he continues to smoke 1-2 packs of cigarettes a day. The patient is and he recently lost his significant other to [employer]. The patient has 1 son. The patient denies any alcohol or illicit drugs. The patient is retired. He does not have a durable power attorney law clerk for healthcare. Code status full code Smoking packs per day: 2 Smoking cigarettes per day: 40.0 Years smoked: 32 Smoking pack-years: 64.00 Smoking status: Current every day smoker Tobacco type: cigarettes Second hand tobacco smoke exposure: Yes Alcohol intake: never Substance use: never Spiritual care co
[2021-04-27] MEDS: ASPIRIN 81 MG CHEWABLE TABLET 324 MG PO (05:56)
[2021-04-27] MEDS: FUROSEMIDE INJ 40 MG/4 ML VIAL IV PUSH (05:56)
--- NOTE | 2021-04-27 07:53 | PM.IMHP ---
H&P: HPI History of Present Illness Date/Time: 04/27/21 07:53 Chief Complaint: SOB Narrative: Pt is a 70-year-old male with a history of end-stage renal disease on dialysis, coronary artery disease with stent placement 3 years ago on dual anti platelet therapy, type 2 diabetes, hypertension, and anxiety who presented emergency room for shortness of breath. Patient states that he was discharged from the hospital on Wednesday and was doing well. He states he was sleeping upright overnight and woke up not feeling the greatest. He got up to walk to the bathroom and felt like his shortness of breath was coming on . He was able to go the bathroom and sit down at the kitchen table and could not catch his breath. He was not coughing but kept clearing his throat. He had no chest pain, arm pain, jaw pain or diaphoresis during this time. He had no change in vision or presyncopal symptoms. He has an albuterol inhaler at home but was told by a doctor never to use it so he did not try it. He did however receive albuterol by EMS which he says made him feel better. He denies nausea, vomiting, diarrhea, constipation, fever, rashes, wounds or leg swelling. He has a history of sleep apnea but needs an official sleep study done at home. He has no history of blood clots. He complies with his dialysis and sees Dr. Sandoval. He was vaccinated with both Pfizer vaccines about 3 months ago. He has a history of coronary disease and has seen Dr. Underwood and he thinks he had a cardiac catheterization about 3 years ago with a stent placement. He had an echocardiogram done last week in [place]. He says he has been hospitalized multiple times for this same issue and has not found any resolution. He has no oxygen at home and still smokes 2 packs per day. Review of Systems Review of Systems: All systems reviewed & are unremarkable except as noted in HPI and below PMFSH Past Medical History Medical History (Updated 04/27/21 @ 09:58 by Grazyna Guy PA-C) Anemia of chronic disease AV fistula CHF (congestive heart failure) DM2 (diabetes mellitus, type 2) End-stage renal disease on hemodialysis Generalized anxiety disorder Hypertension Suspected sleep apnea Tobacco abuse Surgical History Surgical History Cataract extraction status H/O heart artery stent History of tonsillectomy History of total left hip arthroplasty Hx of cholecystectomy Family History Family History Sibling 2019 novel coronavirus-infected pneumonia (NCIP) Mother Heart disease congestive heart failure Father Heart disease Social History Social History (Updated 04/27/21 @ 09:59 by ALEXIS SolorioC) Social History: Patient smokes 2 packs per day but does not drink alcohol. He lives at home alone. He would like to be a full code. If he was unable to make decisions for himself he would like his son William Adams to make decisions for him. 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 Smoking packs per day: 2 Smoking cigarettes per day: 40.0 Years smoked: 57 Smoking pack-years: 114.00 Smoking status: Current every day smoker Tobacco type: cigarettes Second hand tobacco smoke exposure: Yes Alcohol intake: never Substance use: never Substance use type: does not use Spiritual care concerns: No Meds Home Medications and Allergies Home Medications Medication Instructions Recorded Confirmed Type Velphoro 500 mg PO TID 04/23/21 04/27/21 History aspirin 81 mg PO DAILY 04/23/21 04/27/21 History buspirone 30 mg PO BID 04/23/21 04/27/21 History cholecalciferol (vitamin D3) 50 mcg PO EVERY OTHER DAY 04/23/21 04/27/21 History [Vitamin D3] cholecalciferol (vitamin D3) 100 mcg PO EVERY OTHER DAY 04/23/21 04/27/21 History [Vitamin D3] clonidine HCl 0.1 mg PO TID 04/23/21 04/27/21 History clopidogrel 75 mg PO
--- NOTE | 2021-04-27 08:31 | ADMGEN ---
This patient, William Valentin, was admitted to IMU Room 213-01. Patient/family oriented to hospital policies and general routines including ID bracelet, bed and alarms, visiting hours, pain management, procedures, bathroom and other care routines, personal items, smoking policy, room service/diet, and visiting hours. Information on how to activate the Rapid Response Team has been discussed. Patient/Family are encouraged to report perceived risks to care and to ask questions if they do not understand what they are told or what they should do.
[2021-04-27 09:18] LABS: D Dimer 1.48 ug/mL (<0.48)
[2021-04-27 09:41] LABS: Troponin I 0.461 ng/mL (0.000-0.034)
--- NOTE | 2021-04-27 09:52 | PM.CNPUL ---
Assessment and Plan Additional Plan 70-year-old male with a history of hypertension, diabetes, end-stage renal disease on hemodialysis Wednesday, coronary artery disease status post cardiac stent in the past, congestive heart failure, moderate aortic stenosis with a valve area of 1.2 cm, pulmonary hypertension with an RVSP of 58, tobacco use, obstructive sleep apnea who is scheduled for a in-lab CPAP titration on 05/20/2021 at [facility] presented to the emergency department on 04/27 with hypoxemic respiratory failure. Patient currently with hypoxic respiratory failure requiring CPAP and BiPAP overnight which has resolved with placing the patient on BiPAP. Currently he is on room air with saturations 96% and states that he feels 100% better. Regarding pulmonary etiologies of this acute presentation, Patient did improve with placement of BiPAP and mucus plug is a possibility. I see no evidence of an active COPD exacerbation, pneumonia, tracheobronchitis, or any other reactive airways disease such as asthma but the patient did state the breathing treatment helped hiom and I will continue Leave albuterol nebulizers and add ipratropium nebulizer 0.5 mg q.6 standing for now. I do not see a need for systemic or inhaled corticosteroids or antibiotics at this time. He will need outpatient pulmonary function test to determine if he has COPD. He has no evidence of hypercarbic respiratory failure with a blood gas this admission 7.41/60 while on BiPAP and blood gases at [facility] on 04/09/2021 without hypercarbic respiratory failure. His current serum bicarb is 28 and a serum bicarbonate on last admission was 24-30. This excludes a obesity hypoventilation syndrome. Patient has had multiple hospitalizations over the last months has an echo written in the chart with an RVSP of 58 and has obstructive sleep apnea. The obstructive sleep apnea is likely the cause of his pulmonary hypertension. At some point he will need a CT angiogram of the chest to exclude chronic thromboembolic disease. During this admission I would coordinate this with renal so that can be performed before hemodialysis. In the meantime I would also ox obtain upper lower extremity Dopplers to exclude a DVT. Patient is 100% better without any active treatment now and I do not believe he needs systemic anticoagulation at this point. Regarding his obstructive sleep apnea patient will require an outpatient CPAP titration which is scheduled on 05/20/2021. I do not think that uncontrolled obstructive sleep apnea is causing his current clinical presentation of dyspnea on exertion with acute hypoxic respiratory failure. In the meantime I will order an overnight oximetry on room air to his says his oxygenation tonight. Cardiology has been consulted regarding his acute onset dyspnea on exertion, history of aortic stenosis, positive troponin and history of coronary artery disease with stents. Patient might have ischemic mitral regurgitation. Patient has evidence of interstitial infiltrates on his chest x-ray elevated BNP but does not appear to be acutely fluid overloaded at this time. Renal has been consulted regarding the need for dialysis. Discussed with Grazyna Guy Will follow with you. History of Present Illness History of Present Illness Consult date: 04/27/21 Reason for consult: hypoxemia Chief complaint: Acute Respiratory Failure with Hypoxia, elevated t Narrative: 04/27/2021: This is a new Pulmonary consultation for hypoxic respiratory failure 70-year-old male with a history of hypertension, diabetes, end-stage renal disease on hemodialysis Wednesday, coronary artery disease status post cardiac stent in the past, congestive heart failure, moderate aortic stenosis with a valve area of 1.2 cm, pulmonary hypertension with an RVSP of 58, tobacco use, obstructive sleep apnea who is scheduled for a in-lab CPAP titration on
[2021-04-27 10:06] LABS: Iron 26 ug/dL (49-181)
[2021-04-27 10:15] LABS: Percent Iron Saturation 13 % (20-50)
--- NOTE | 2021-04-27 10:42 | PM.CNCAR ---
Assessment and Plan Additional Plan This is a 70-year-old man with: History of coronary artery disease with PCI done elsewhere several years ago the details of the procedure which vessel involved is not available to me at the time of this dictation as he did not and generally does not receive care at [facility]. He is also a gentleman with aortic valve stenosis which by recent echo at [place] apparently is not severe. He enters the hospital apparently multiple times recently here and elsewhere with problematic dyspnea. He does not appear to have an acute COPD exacerbation and his pulmonary cleaning validation consultant this morning also corroborates that opinion. Undoubtedly he has an element of chronic underlying lung disease however since he has been smoking 2 packs per day for a long time. The cardiac issue appears to be that he may or may not have symptoms of an ischemia quit. Along those lines a Lexiscan nuclear stress test is reasonable. Since he is coming back for readmission at short interval I will schedule this to happen tomorrow and leave further recommendations after that is completed. For now there are no additional cardiac recommendations. Diony Lund MD [facility] History of Present Illness History of Present Illness Consult date/time: 04/27/21 10:42 Consult reason: shortness of breath Reason For Visit: Acute Respiratory Failure with Hypoxia, elevated t Narrative: This is a 70-year-old man I am seeing at the request of the hospitalist as he was admitted with recurrent problematic dyspnea and the plan/expectation is to perform an ischemia workup while he is in the hospital. I have never seen this gentleman before. Apparently he has a history of coronary artery disease and follows with a typist in [place] for at least a few years. The patient states that he was found to have coronary artery disease several years ago and underwent a percutaneous revascularization procedure the details of which are unavailable to me at the time of this dictation. He cannot recall the history of any symptomatology that he had that led to his cardiac evaluation at that time. In any event he has been hospitalized multiple times recently with shortness of breath. Apparently he was hospitalized a couple of times over at [facility] been hospitalized here at [place] last week, discharged and re-presented to the hospital within less than 48 hours reporting feeling unwell with shortness of breath. He is a gentleman with end-stage renal disease and has been on hemodialysis but he thinks for about 3 or 4 years. He also has longstanding hypertension and diabetes. He has also longstanding heavy smoker about 2 packs per day for many years. He has not specifically report reporting any symptoms of chest pain. He does not have any orthopnea PND or edema. According to records during the recent hospitalization at [place] he was found to have normal left ventricular systolic function and [id number] aortic valve stenosis with a valve area of 1.2 cm2. According to the records this is a chronic issue. It is interesting that he is repeatedly presenting to hospitals where his physicians do not practice with the symptoms. In any event he was seen last week Wednesday here at [facility] the recommendations/plan was to perform a Lexiscan nuclear stress test as an outpatient since he appeared to be otherwise stable. The plan is now apparently for that to happen as an inpatient here. Patient's EKG demonstrates sinus rhythm with first-degree AV block and his troponin levels are elevated at 0.4 but are flat, consistent with his end-stage renal disease. Review of Systems Constitutional: Constitutional: Reports lethargy Eyes: Eyes: Reports no additional eye complaints ENT: Reports system reviewed and no additional complaints, except as documented Cardiovascular: Cardiovascular: Reports as per HPI Respiratory: Respiratory: Reports dyspnea on exertion Gastroint
--- NOTE | 2021-04-27 10:42 | PM.CNNEP ---
Assessment and Plan Assessment and plan (1) End stage renal disease: Code(s): N18.6 - End stage renal disease Status: Chronic Assessment and Plan: HD tomorrow and continue M/W/F schedule follow electrolytes, volume status and clearance (2) Shortness of breath: Code(s): R06.02 - Shortness of breath Status: Acute Assessment and Plan: suspect multifactorial/combination of: - intrinsic lung disease - smoking/reactive airway disease - CHF versus CAD - NIC - mild anemia Cardiology and Pulmonary recommendations noted Stress test and CTA of chest tomorrow check upper and lower extremity doppler ultrasound smoking cessation follow respiratory status (3) Hypertension: Code(s): I10 - Essential (primary) hypertension Status: Chronic Assessment and Plan: reasonable control at this time follow trend of hemodynamics (4) Anemia: Code(s): D64.9 - Anemia, unspecified Status: Acute Assessment and Plan: due to ESRD Epogen with HD check iron studies to assess need for IV venofer follow trend of H/H (5) DM2 (diabetes mellitus, type 2): Code(s): E11.9 - Type 2 diabetes mellitus without complications Status: Chronic Assessment and Plan: follow accuchecks glycemic control Will continue to follow. History of Present Illness Reason for Consult Consult date: 04/27/21 Reason for consult: end stage renal disease Chief Complaint Chief complaint: Acute Respiratory Failure with Hypoxia, elevated t History of Present Illness Narrative: The patient is a 70-year-old male with a past medical history as outlined below who presented to [facility] ER earlier this AM with complaints of shortness of breath. It should be noted that that patient was just discharged from [facility] on Wednesday (04/25/21) after his scheduled dialysis treatment. He was admitted at that time for shortness of breath as well thought to be due to volume overload. Apparently, he suddenly woke this AM and did not feel good. He ambulated to the bathroom and felt short of breath. His shortness of breath worsened to the point that he was not able to catch his breath. No other symptoms (chest pain, palpitations, dizziness, diaphoresis, nausea, vomiting, fever, chills...etc) were present. He called [id number]/EMS for assistance. Workup and evaluation emergency room demonstrated the patient to be in mild respiratory distress. EMS gave the patient a nebulizer treatment which did improve his symptoms to some degree. He was placed on BiPAP which also stablized his respiratory status. Routine blood test demonstrated labs consistent with his known history of end-stage renal disease and his CBC was remarkable for mild anemia. His BNP was greater than 35,000 and his chest x-ray demonstrated evidence of mild CHF. Given his symptoms as well as his complex medical history and recent discharge from the hospital, he was admitted the hospital for dialysis and further intervention. Since admission, his respiratory status has stabilized and his currently satting 97% on room air. He has already been seen by Pulmonary as well as Cardiology for his admission symptoms as well as the recurrent nature of these symptoms that have led to frequent hospitalizations at [facility] as well as here at [facility]. Renal consultation was requested due to his end-stage renal disease. The patient normally dialyzes on a Wednesday schedule at [facility] under the care of Dr. Sandoval. He apparently was maintained on this schedule during his last hospitalization at [facility] as well as here ([facility]) when he was just recently hospitalized As already mentioned, he received dialysis on Wednesday (04/25/21) just prior to discharge and tolerated the procedure
[2021-04-27 11:02] LABS: Troponin I 0.455 ng/mL (0.000-0.034)
[2021-04-27 11:41] LABS: Glucose Point of Care 150 mg/dl (65-105)
[2021-04-27 11:45] LABS: CRP 3.4 mg/dL (<1.0); Lactate Dehydrogenase 449 U/L (313-618)
[2021-04-27 11:58] LABS: Transferrin 127 mg/dL (206-381)
[2021-04-27] MEDS: PREGABALIN (*CRX) 50 MG CAPSULE 100 MG PO (13:40)
[2021-04-27] MEDS: FUROSEMIDE 80 MG TABLET PO (13:41)
[2021-04-27] MEDS: ASPIRIN 81 MG ENTERIC TABLET PO (13:41)
[2021-04-27] MEDS: ISOSORBIDE MONONITRATE 30 MG TAB.ER.24H PO (13:41)
[2021-04-27] MEDS: HEPARIN SODIUM 5,000 UNITS/ML VIAL 5000 UNITS SUB-Q ×2 (13:41→20:04)
[2021-04-27] MEDS: IMIPRAMINE HCL 25 MG TABLET PO (13:41)
[2021-04-27] MEDS: PANTOPRAZOLE 40 MG TABLET PO ×2 (13:41→20:04)
[2021-04-27] MEDS: CLOPIDOGREL BISULFATE 75 MG TABLET PO (13:41)
[2021-04-27] MEDS: busPIRone HCL 10 MG TABLET 30 MG PO ×2 (13:41→17:45)
[2021-04-27] MEDS: METOPROLOL SUCCINATE EXT REL 25 MG TABCR PO (13:42)
[2021-04-27] MEDS: cloNIDine HCL 0.1 MG TABLET PO ×2 (13:43→17:45)
[2021-04-27 13:59] LABS: Glucose Point of Care 159 mg/dl (65-105)
[2021-04-27] MEDS: IPRATROPIUM BR 0.02% INH SOLN 0.5 MG/2.5 ML VIAL INHALATION ×3 (14:16→20:43)
[2021-04-27] MEDS: LEVALBUTEROL NEB 1.25 MG/3 ML 0.63 MG INHALATION ×2 (14:16→20:43)
[2021-04-27 18:17] LABS: Glucose Point of Care 74 mg/dl (65-105)
[2021-04-27] MEDS: rOPINIRole HCL 1 MG TABLET 3 MG PO (20:04)
[2021-04-27 20:28] LABS: Glucose Point of Care 201 mg/dl (65-105)
[2021-04-28] VITALS (30 sets, daily range): BP systolic 116–149; BP diastolic 41–62; PULSE 59–81; RESP 16–20; TEMP 36.4–37.2; O2SAT 92–99
[2021-04-28 06:46] LABS: Hematocrit 27.4 % (42.0-52.0); Hemoglobin 8.7 g/dL (14.0-18.0); Mean Corpuscular HGB Conc 31.8 g/dl (32-36); Mean Corpuscular Volume 91.3 fl (80-100); Mean Platelet Volume 10.9 fl (7.4-10.4); Platelet Count Result 217 k/mm3 (150-375); Red Cell Distribution Width 17.5 % (11.5-14.5); White Blood Count 9.3 K/mm3 (4.5-10.0)
[2021-04-28 07:08] LABS: Anion Gap 16 mmol/L (8-16); Blood Urea Nitrogen 47 mg/dL (9-20); Calcium 9.2 mg/dL (8.4-10.2); Carbon Dioxide 24 mmol/L (22-30); Chloride 97 mmol/L (98-107); Estimated CRCL calculation 8 ml/min; Estimated Glomerular Filt Rate 6; Glucose 102 mg/dL (65-110); Phosphorus 8.3 mg/dL (2.5-4.5); Potassium 5.1 mmol/L (3.4-5.0); Sodium 137 mmol/L (137-145)
[2021-04-28] MEDS: LEVALBUTEROL NEB 1.25 MG/3 ML 0.63 MG INHALATION ×2 (07:57→20:21)
[2021-04-28] MEDS: IPRATROPIUM BR 0.02% INH SOLN 0.5 MG/2.5 ML VIAL INHALATION ×2 (07:58→20:21)
[2021-04-28] MEDS: FUROSEMIDE 80 MG TABLET PO (08:34)
[2021-04-28] MEDS: IMIPRAMINE HCL 25 MG TABLET PO (08:34)
[2021-04-28] MEDS: PANTOPRAZOLE 40 MG TABLET PO ×2 (08:34→21:29)
[2021-04-28] MEDS: ASPIRIN 81 MG ENTERIC TABLET PO (08:35)
[2021-04-28] MEDS: ROSUVASTATIN 10 MG TABLET PO (08:35)
[2021-04-28] MEDS: CLOPIDOGREL BISULFATE 75 MG TABLET PO (08:35)
[2021-04-28] MEDS: busPIRone HCL 10 MG TABLET 30 MG PO ×2 (08:35→17:21)
[2021-04-28] MEDS: FINASTERIDE 5 MG TABLET PO (08:35)
[2021-04-28] MEDS: QUEtiapine FUMARATE 100 MG TABLET PO (08:35)
[2021-04-28] MEDS: HEPARIN SODIUM 5,000 UNITS/ML VIAL 5000 UNITS SUB-Q ×2 (08:36→21:30)
[2021-04-28] MEDS: ISOSORBIDE MONONITRATE 30 MG TAB.ER.24H PO (08:36)
[2021-04-28] MEDS: METOPROLOL SUCCINATE EXT REL 25 MG TABCR PO (08:36)
[2021-04-28] MEDS: DOCUSATE SODIUM 100 MG CAPSULE PO (08:36)
[2021-04-28] MEDS: cloNIDine HCL 0.1 MG TABLET PO ×3 (08:37→17:23)
[2021-04-28] MEDS: HYDROcodone/acetaminophen (*CRX) 7.5-325 MG TABLET 1 TAB PO ×3 (08:55→17:23)
[2021-04-28] MEDS: PREGABALIN (*CRX) 50 MG CAPSULE 100 MG PO (08:55)
--- NOTE | 2021-04-28 09:30 | P.PNPL_ITS ---
Progress Note: A&P Additional Plan 70-year-old male with a history of hypertension, diabetes, end-stage renal disease on hemodialysis Wednesday, coronary artery disease status post cardiac stent in the past, congestive heart failure, moderate aortic stenosis with a valve area of 1.2 cm, pulmonary hypertension with an RVSP of 58, tobacco use, obstructive sleep apnea who is scheduled for a in-lab CPAP titration on 05/20/2021 at [facility] presented to the emergency department on 04/27 with hypoxemic respiratory failure. 04/27 Patient currently with hypoxic respiratory failure requiring CPAP and BiPAP overnight which has resolved with placing the patient on BiPAP. Currently he is on room air with saturations 96% and states that he feels 100% better. Regarding pulmonary etiologies of this acute presentation, Patient did improve with placement of BiPAP and mucus plug is a possibility. I see no evidence of an active COPD exacerbation, pneumonia, tracheobronchitis, or any other reactive airways disease such as asthma but the patient did state the breathing treatment helped hiom and I will continue Leave albuterol nebulizers and add ipratropium nebulizer 0.5 mg q.6 standing for now. I do not see a need for systemic or inhaled corticosteroids or antibiotics at this time. He will need outpatient pulmonary function test to determine if he has COPD. He has no evidence of hypercarbic respiratory failure with a blood gas this admission 7.41/37/60 while on BiPAP and blood gases at [facility] on 04/09/2021 without hypercarbic respiratory failure. His current serum bicarb is 28 and a serum bicarbonate on last admission was 24-30. This excludes a obesity hypoventilation syndrome. Patient has had multiple hospitalizations over the last months has an echo written in the chart with an RVSP of 58 and has obstructive sleep apnea. The obstructive sleep apnea is likely the cause of his pulmonary hypertension. At some point he will need a CT angiogram of the chest to exclude chronic thromboembolic disease. During this admission I would coordinate this with re nal so that can be performed before hemodialysis. In the meantime I would also ox obtain upper lower extremity Dopplers to exclude a DVT. Patient is 100% better without any active treatment now and I do not believe he needs systemic anticoagulation at this point. Regarding his obstructive sleep apnea patient will require an outpatient CPAP titration which is scheduled on 05/20/2021. I do not think that uncontrolled obstructive sleep apnea is causing his current clinical presentation of dyspnea on exertion with acute hypoxic respiratory failure. In the meantime I will order an overnight oximetry on room air to his says his oxygenation tonight. Cardiology has been consulted regarding his acute onset dyspnea on exertion, history of aortic stenosis, positive troponin and history of coronary artery disease with stents. Patient might have ischemic mitral regurgitation. Patient has evidence of interstitial infiltrates on his chest x-ray elevated BNP but does not appear to be acutely fluid overloaded at this time. Renal has been consulted regarding the need for dialysis. 04/28 patient tells me he is clinically unchanged from yesterday. He is much better than he when he presented to the hospital but still has some shortness of breath. He is on 2 L nasal cannula oxygen with saturations 93%. He denies any worsening cough and states his cough is minimal, denies phlegm, hemoptysis or chest pain. patient had an overnight oximetry last night on 2 L nasal cannula and his baseline saturation was 92%, lowest saturation was 81% and time with saturation less than or equal to 88% was 10 mi
[2021-04-28 09:46] LABS: Glucose Point of Care 95 mg/dl (65-105)
--- NOTE | 2021-04-28 09:58 | PM.IMPN ---
Progress Note: A&P Assessment and Plan (1) FRANCOIS (dyspnea on exertion): Code(s): R06.00 - Dyspnea, unspecified Status: Acute Assessment and Plan: Pt states he has been hospitalized 9 times in the last few months for this. Will request records from [facility] as this is the hospital he usually goes to. -CXR showing mild CHF - troponins more elevated than they have been in the past. BNP remains at >35,000. -He has known moderate aortic stenosis but the echo states that this has not significantly changed since 2019 -Recommend stress test which will be done today. He is at high risk since he has cardiovascular disease, diabetes, end-stage renal disease, and smokes 2 packs per day. He may have atypical symptoms. -D-dimer elevated, upper lower ultrasound without DVTs. Will do CTA today with dialysis after. No acute indication of PE, no need for anticoagulation at this time. The patient is getting better without any treatment for such. -He has a hx of untreated sleep apnea and will need an official sleep study outpt -patient needs to quit smoking -Continue dialysis on a // schedule - COVID-19 less likely. Patient has been vaccinated about 3 months ago with both COVID vaccines -will need home o2 eval at d/c (2) CHF (congestive heart failure): Qualifiers: Heart failure chronicity: unspecified Heart failure type: unspecified Qualified Code(s): I50.9 - Heart failure, unspecified Code(s): I50.9 - Heart failure, unspecified Status: Chronic Assessment and Plan: Echo last week at [facility] showed EF 71% with mild LVH. Mod , mild aortic regurgitation, mild mitral regurg, and no pericardial effusion. I only have a portion of the report so i'm unsure if they assessed for wall motion abnormalities. He may need to repeat a limited echo but will await cardiology's recommendations. -Pt has had a heart cath about 3 years ago with stent placement in [place] by Dr. Underwood. Obtain records (3) Hypertension: Code(s): I10 - Essential (primary) hypertension Status: Chronic Assessment and Plan: Last bp 149/45 - continue clonidine, Lasix, Imdur, and metoprolol (4) End-stage renal disease on hemodialysis: Code(s): N18.6 - End stage renal disease; Z99.2 - Dependence on renal dialysis Status: Chronic Assessment and Plan: Continue dialysis M,W,F, nephrology has been consulted (5) DM2 (diabetes mellitus, type 2): Code(s): E11.9 - Type 2 diabetes mellitus without complications Status: Chronic Assessment and Plan: Last glucose 95 -continue SSI and accuchecks -patient is unsure if he takes anything at home for this. He says he takes a lot of pills and he isnt unsure. He has 1 new medication that is not on his home med list but does not know the name (6) Anemia of chronic disease: Code(s): D63.8 - Anemia in other chronic diseases classified elsewhere Status: Chronic Assessment and Plan: Last hgb 8.7 -likely due to anemia of chronic disease -doubt contributing to his sob -awaiting old records - anemia panel appears to be anemia chronic disease. B12 slightly low. Will replaced (7) Tobacco abuse: Code(s): Z72.0 - Tobacco use Status: Chronic Assessment and Plan: Pt needs to quit smoking and understands this -nicotine patch ordered (8) Elevated troponin: Code(s): R77.8 - Other specified abnormalities of plasma proteins Status: Acute Assessment and Plan: As above -cardiology consulted (9) Suspected sleep apnea: Code(s): R29.818 - Other symptoms and signs involving the nervous system Status: Acute Assessment and Plan: Will need outpatient study (10) Acute respiratory failure with hypoxia: Code(s): J96.01 - Acute respiratory failure with hypoxia Status: Acute Assessment and Plan: Likely due to combination of CHF e
--- NOTE | 2021-04-28 11:15 | P.PNNP_ITS ---
Progress Note: A&P Assessment and Plan (1) End stage renal disease: Code(s): N18.6 - End stage renal disease Status: Chronic Assessment and Plan: * HD today. * He says that he does not gain much weight between treatments. He still makes some urine he says. * He has some fluid according to the chest x-ray. His lungs do not sound too bad though. (2) Shortness of breath: Code(s): R06.02 - Shortness of breath Status: Acute Assessment and Plan: * suspect multifactorial/combination of: - intrinsic lung disease - smoking/reactive airway disease - CHF versus CAD - NIC - mild anemia * Cardiology and Pulmonary recommendations noted * Stress test To be done. * No evidence of clot in arms or legs per venous Doppler. * CTA of chest to be done today. * check upper and lower extremity doppler ultrasound * smoking cessation * follow respiratory status (3) Hypertension: Code(s): I10 - Essential (primary) hypertension Status: Chronic Assessment and Plan: * reasonable control at this time * follow trend of hemodynamics (4) Anemia: Code(s): D64.9 - Anemia, unspecified Status: Acute Assessment and Plan: * due to ESRD * Epogen with HD * T sat only 13. Will give Venofer * follow trend of H/H (5) DM2 (diabetes mellitus, type 2): Code(s): E11.9 - Type 2 diabetes mellitus without complications Status: Chronic Assessment and Plan: * on Accu-Cheks and sliding-scale insulin Subjective Date/time seen: 04/28/21 11:15 Interval history: William is still short of breath. He feels a little better than he did when he came in. He did not have dialysis yesterday. No chest pain. Review of Systems Cardiovascular: Cardiovascular: Reports no additional cardiovascular complaints Respiratory: Respiratory: Reports no additional respiratory complaints Gastrointestinal: Gastrointestinal: Reports no additional gastrointestinal complaints Genitourinary: Genitourinary: Reports no additional male genitourinary complaints Exam Narrative: WDWN in NAD skin no rash head ncat lungs clear but decreased breath sounds throughout cor reg no rub abd BS+ nontender and soft ext no edema. Objective Data Vital Signs Vital Signs: Vital Signs - 24 hr 04/27/21 12:00 04/27/21 13:42 04/27/21 14:00 Temperature 36.2 C L Pulse Rate 63 70 91 Respiratory Rate 20 Blood Pressure 160/53 H Pulse Oximetry 100 04/27/21 14:19 04/27/21 14:20 04/27/21 14:24 Temperature Pulse Rate 75 78 Respiratory Rate 18 18 Blood Pressure Pulse Oximetry 90 04/27/21 16:00 04/27/21 18:00 04/27/21 19:24 Temperature 36.7 C 36.4 C Pulse Rate 60 70 67 Respiratory Rate 20 20 Blood Pressure 122/42 L 116/48 L Pulse Oximetry 99 100 04/27/21 20:00 04/27/21 20:43 04/27/21 20:46 Temperature Pulse Rate 66 67 Respiratory Rate 20 20 Blood Pressure Pulse Oximetry 100 94 04/27/21 20:53 04/27/21 22:00 04/27/21 23:12 Tempera
--- NOTE | 2021-04-28 11:15 | PM.PNNEP ---
Progress Note: A&P Assessment and Plan (1) End stage renal disease: Code(s): N18.6 - End stage renal disease Status: Chronic Assessment and Plan: HD today. He says that he does not gain much weight between treatments. He still makes some urine he says. He has some fluid according to the chest x-ray. His lungs do not sound too bad though. (2) Shortness of breath: Code(s): R06.02 - Shortness of breath Status: Acute Assessment and Plan: suspect multifactorial/combination of: - intrinsic lung disease - smoking/reactive airway disease - CHF versus CAD - NIC - mild anemia Cardiology and Pulmonary recommendations noted Stress test To be done. No evidence of clot in arms or legs per venous Doppler. CTA of chest to be done today. check upper and lower extremity doppler ultrasound smoking cessation follow respiratory status (3) Hypertension: Code(s): I10 - Essential (primary) hypertension Status: Chronic Assessment and Plan: reasonable control at this time follow trend of hemodynamics (4) Anemia: Code(s): D64.9 - Anemia, unspecified Status: Acute Assessment and Plan: due to ESRD Epogen with HD T sat only 13. Will give Venofer follow trend of H/H (5) DM2 (diabetes mellitus, type 2): Code(s): E11.9 - Type 2 diabetes mellitus without complications Status: Chronic Assessment and Plan: on Accu-Cheks and sliding-scale insulin Subjective Date/time seen: 04/28/21 11:15 Interval history: William is still short of breath. He feels a little better than he did when he came in. He did not have dialysis yesterday. No chest pain. Review of Systems Cardiovascular: Cardiovascular: Reports no additional cardiovascular complaints Respiratory: Respiratory: Reports no additional respiratory complaints Gastrointestinal: Gastrointestinal: Reports no additional gastrointestinal complaints Genitourinary: Genitourinary: Reports no additional male genitourinary complaints Exam Narrative: WDWN in NAD skin no rash head ncat lungs clear but decreased breath sounds throughout cor reg no rub abd BS+ nontender and soft ext no edema. Objective Data Vital Signs Vital Signs: Vital Signs - 24 hr 04/27/21 12:00 04/27/21 13:42 04/27/21 14:00 Temperature 36.2 C L Pulse Rate 63 70 91 Respiratory Rate 20 Blood Pressure 160/53 H Pulse Oximetry 100 04/27/21 14:19 04/27/21 14:20 04/27/21 14:24 Temperature Pulse Rate 75 78 Respiratory Rate 18 18 Blood Pressure Pulse Oximetry 90 04/27/21 16:00 04/27/21 18:00 04/27/21 19:24 Temperature 36.7 C 36.4 C Pulse Rate 60 70 67 Respiratory Rate 20 20 Blood Pressure 122/42 L 116/48 L Pulse Oximetry 99 100 04/27/21 20:00 04/27/21 20:43 04/27/21 20:46 Temperature Pulse Rate 66 67 Respiratory Rate 20 20 Blood Pressure Pulse Oximetry 100 94 04/27/21 20:53 04/27/21 22:00 04/27/21 23:12 Temperature Pulse Rate 70 70 75 Respiratory Rate 20 18 Blood Pressure Pulse Oximetry 97 04/27/21 23:41 04/28/21 00:00 04/28/21 01:33 Temperature 36.2 C L Pulse Rate 75 69 70 Respiratory Rate 18 Blood Pressure 137/62 Pulse Oximetry 97 04/28/21 03:27 04/28/21 04:00 04/28/21 05:25 Temperature 36.4 C Pulse Rate 78 75 75 Respiratory Rate 20 18 Blood Pressure 143/42 H Pulse Oximetry 93 93 04/28/21 05:52 04/28/21 07:58 04/28/21 08:00 Temperature 37.2 C Pulse Rate 73 81 80 Respiratory Rate 20 18 Blood Pressure 149/45 H Pulse Oximetry 92 95 04/28/21 08:15 04/28/21 08:36 04/28/21 10:00 Temperature Pulse Rate 78 81 70 Respiratory Rate 20 Blood Pressure Pulse Oximetry Intake/Output Intake/Output: Intake & Output 04/25/21 04/26/21 04/27/21 04/28/21 23:59 23:59 23:59 23:59 In
[2021-04-28] MEDS: CYANOCOBALAMIN 1,000 MCG TABLET 1000 MCG PO (13:07)
[2021-04-28 14:23] LABS: Glucose Point of Care 99 mg/dl (65-105)
[2021-04-28] MEDS: EPOETIN ALFA-EPBX 10,000 UNITS/ML VIAL 10000 UNITS IV PUSH (16:30)
--- NOTE | 2021-04-28 16:47 | PM.EVENT ---
Event Note Event Note Event Note: On dialysis and tolerating it well. Going for about 3L today. His blood pressure is doing well. He was seen at 4:15 p.m.
[2021-04-28 20:19] LABS: Glucose Point of Care 81 mg/dl (65-105)
[2021-04-28] MEDS: rOPINIRole HCL 1 MG TABLET 3 MG PO (21:29)
[2021-04-29] VITALS (15 sets, daily range): BP systolic 105–151; BP diastolic 45–52; PULSE 65–99; RESP 16–20; TEMP 36.3–36.7; O2SAT 87–100
--- NOTE | 2021-04-29 02:32 | PCRCNOTE ---
apnea study; neb tx omitted
[2021-04-29 05:48] LABS: Albumin Level 4.2 g/dL (3.5-5.1); Anion Gap 12 mmol/L (8-16); Blood Urea Nitrogen 24 mg/dL (9-20); Calcium 9.2 mg/dL (8.4-10.2); Carbon Dioxide 27 mmol/L (22-30); Chloride 101 mmol/L (98-107); Estimated CRCL calculation 13 ml/min; Estimated Glomerular Filt Rate 12; Glucose 117 mg/dL (65-110); Phosphorus 5.9 mg/dL (2.5-4.5); Potassium 4.7 mmol/L (3.4-5.0); Sodium 140 mmol/L (137-145)
--- NOTE | 2021-04-29 07:01 | P.PNNP_ITS ---
Progress Note: A&P Assessment and Plan (1) End stage renal disease: Code(s): N18.6 - End stage renal disease Status: Chronic Assessment and Plan: * HD finished yesterday. * He did well with the treatment. * 3L were removed. (2) Shortness of breath: Code(s): R06.02 - Shortness of breath Status: Acute Assessment and Plan: * suspect multifactorial/combination of: - intrinsic lung disease - smoking/reactive airway disease - CHF versus CAD - NIC - mild anemia * CT angio showed no pulmonary embolus but did show a cavitation in the right upper lobe. * Stress test finished but not read yet * No evidence of clot in arms or legs per venous Doppler. * smoking cessation * follow respiratory status (3) Hypertension: Code(s): I10 - Essential (primary) hypertension Status: Chronic Assessment and Plan: * reasonable control at this time * follow trend of hemodynamics (4) Anemia: Code(s): D64.9 - Anemia, unspecified Status: Acute Assessment and Plan: * due to ESRD * Epogen with HD * T sat only 13. Getting Venofer * Hemoglobin 8.7 (5) DM2 (diabetes mellitus, type 2): Code(s): E11.9 - Type 2 diabetes mellitus without complications Status: Chronic Assessment and Plan: * on Accu-Cheks and sliding-scale insulin Subjective Date/time seen: 04/29/21 07:01 Interval history: More comfortable today. Sitting at the side of bed. He is still on oxygen No chest pain Exam Narrative: WDWN in NAD skin no rash or subQ nodules head ncat lungs clear but decreased breath sounds throughout cor reg no rub or gallop abd BS+ nontender and soft ext no edema or cyanosis Objective Data Vital Signs Vital Signs: Vital Signs - 24 hr 04/28/21 07:58 04/28/21 08:00 04/28/21 08:15 Temperature 37.2 C Pulse Rate 81 80 78 Respiratory Rate 20 18 20 Blood Pressure 149/45 H Pulse Oximetry 92 95 04/28/21 08:36 04/28/21 10:00 04/28/21 12:00 Temperature 36.8 C Pulse Rate 81 70 65 Respiratory Rate 16 Blood Pressure 121/43 L Pulse Oximetry 94 04/28/21 15:45 04/28/21 16:00 04/28/21 16:30 Temperature 36.4 C 36.6 C Pulse Rate 62 61 59 L Respiratory Rate 20 20 Blood Pressure 126/61 137/58 L 116/52 L Pulse Oximetry 99 04/28/21 17:12 04/28/21 17:15 04/28/21 17:45 Temperature Pulse Rate 66 65 Respiratory Rate Blood Pressure 143/57 H 121/55 L Pulse Oximetry 95 04/28/21 18:00 04/28/21 18:15 04/28/21 18:45 Temperature Pulse Rate 63 62 66 Respiratory Rate Blood Pressure 133/60 136/59 L Pulse Oximetry 04/28/21 19:15 04/28/21 19:30 04/28/21 19:46 Temperature 36.7 C Pulse Rate 66 66 68 Respiratory Rate 18 Blood Pressure 146/62 H 145/58 H 139/60 Pulse Oximetry 04/28/21 20:00 04/28/21 20:23 04/28/21 20:33 Temperature 36.9 C Pulse Rate 70 74 71 Respiratory Rate 20
--- NOTE | 2021-04-29 07:01 | PM.PNNEP ---
Progress Note: A&P Assessment and Plan (1) End stage renal disease: Code(s): N18.6 - End stage renal disease Status: Chronic Assessment and Plan: HD finished yesterday. He did well with the treatment. 3L were removed. (2) Shortness of breath: Code(s): R06.02 - Shortness of breath Status: Acute Assessment and Plan: suspect multifactorial/combination of: - intrinsic lung disease - smoking/reactive airway disease - CHF versus CAD - NIC - mild anemia CT angio showed no pulmonary embolus but did show a cavitation in the right upper lobe. Stress test finished but not read yet No evidence of clot in arms or legs per venous Doppler. smoking cessation follow respiratory status (3) Hypertension: Code(s): I10 - Essential (primary) hypertension Status: Chronic Assessment and Plan: reasonable control at this time follow trend of hemodynamics (4) Anemia: Code(s): D64.9 - Anemia, unspecified Status: Acute Assessment and Plan: due to ESRD Epogen with HD T sat only 13. Getting Venofer Hemoglobin 8.7 (5) DM2 (diabetes mellitus, type 2): Code(s): E11.9 - Type 2 diabetes mellitus without complications Status: Chronic Assessment and Plan: on Accu-Cheks and sliding-scale insulin Subjective Date/time seen: 04/29/21 07:01 Interval history: More comfortable today. Sitting at the side of bed. He is still on oxygen No chest pain Exam Narrative: WDWN in NAD skin no rash or subQ nodules head ncat lungs clear but decreased breath sounds throughout cor reg no rub or gallop abd BS+ nontender and soft ext no edema or cyanosis Objective Data Vital Signs Vital Signs: Vital Signs - 24 hr 04/28/21 07:58 04/28/21 08:00 04/28/21 08:15 Temperature 37.2 C Pulse Rate 81 80 78 Respiratory Rate 20 18 20 Blood Pressure 149/45 H Pulse Oximetry 92 95 04/28/21 08:36 04/28/21 10:00 04/28/21 12:00 Temperature 36.8 C Pulse Rate 81 70 65 Respiratory Rate 16 Blood Pressure 121/43 L Pulse Oximetry 94 04/28/21 15:45 04/28/21 16:00 04/28/21 16:30 Temperature 36.4 C 36.6 C Pulse Rate 62 61 59 L Respiratory Rate 20 20 Blood Pressure 126/61 137/58 L 116/52 L Pulse Oximetry 99 04/28/21 17:12 04/28/21 17:15 04/28/21 17:45 Temperature Pulse Rate 66 65 Respiratory Rate Blood Pressure 143/57 H 121/55 L Pulse Oximetry 95 04/28/21 18:00 04/28/21 18:15 04/28/21 18:45 Temperature Pulse Rate 63 62 66 Respiratory Rate Blood Pressure 133/60 136/59 L Pulse Oximetry 04/28/21 19:15 04/28/21 19:30 04/28/21 19:46 Temperature 36.7 C Pulse Rate 66 66 68 Respiratory Rate 18 Blood Pressure 146/62 H 145/58 H 139/60 Pulse Oximetry 04/28/21 20:00 04/28/21 20:23 04/28/21 20:33 Temperature 36.9 C Pulse Rate 70 74 71 Respiratory Rate 20 20 20 Blood Pressure 141/50 H Pulse Oximetry 98 98 04/28/21 22:00 04/28/21 22:05 04/28/21 23:19 Temperature 36.6 C Pulse Rate 81 79 Respiratory Rate 20 Blood Pressure 131/46 L Pulse Oximetry 98 97 04/29/21 00:00 04/29/21 02:00 04/29/21 04:00 Temperature 36.7 C Pulse Rate 77 70 74 Respiratory Rate 20 20 Blood Pressure 151/52 H Pulse Oximetry 97 100 04/29/21 06:00 Temperature Pulse Rate 78 Respiratory Rate Blood Pressure Pulse Oximetry Intake/Output Intake/Output: Intake & Output 04/26/21 04/27/21 04/28/21 04/29/21 23:59 23:59 23:59 23:59 Intake Total 740 160 Output Total 200 3850 0 Balance 540 -3690 0 Meds/Results Medications: Active Medications Generic Name Dose Route Start Last Admin Trade Name Freq PRN Reason Stop Dose Admin Hydrocodone Bitart/Acetaminophen 1 tab 04/28/21 08:44 04/28/21 17:23 Hydrocodone/Acetaminophen (*Crx) 7.5-325 Mg Tablet PO 1 tab TID PRN Adm
[2021-04-29] MEDS: LEVALBUTEROL NEB 1.25 MG/3 ML 0.63 MG INHALATION (07:50)
[2021-04-29] MEDS: IPRATROPIUM BR 0.02% INH SOLN 0.5 MG/2.5 ML VIAL INHALATION (07:50)
--- NOTE | 2021-04-29 08:55 | PM.PNPUL ---
Progress Note: A&P Additional Plan 70-year-old male with a history of hypertension, diabetes, end-stage renal disease on hemodialysis Wednesday, coronary artery disease status post cardiac stent in the past, congestive heart failure, moderate aortic stenosis with a valve area of 1.2 cm, pulmonary hypertension with an RVSP of 58, tobacco use, obstructive sleep apnea who is scheduled for a in-lab CPAP titration on 05/20/2021 at [facility] presented to the emergency department on 04/27 with hypoxemic respiratory failure. 04/27 Patient currently with hypoxic respiratory failure requiring CPAP and BiPAP overnight which has resolved with placing the patient on BiPAP. Currently he is on room air with saturations 96% and states that he feels 100% better. Regarding pulmonary etiologies of this acute presentation, Patient did improve with placement of BiPAP and mucus plug is a possibility. I see no evidence of an active COPD exacerbation, pneumonia, tracheobronchitis, or any other reactive airways disease such as asthma but the patient did state the breathing treatment helped hiom and I will continue Leave albuterol nebulizers and add ipratropium nebulizer 0.5 mg q.6 standing for now. I do not see a need for systemic or inhaled corticosteroids or antibiotics at this time. He will need outpatient pulmonary function test to determine if he has COPD. He has no evidence of hypercarbic respiratory failure with a blood gas this admission 7.41/37/60 while on BiPAP and blood gases at [facility] on 04/09/2021 without hypercarbic respiratory failure. His current serum bicarb is 28 and a serum bicarbonate on last admission was 24-30. This excludes a obesity hypoventilation syndrome. Patient has had multiple hospitalizations over the last months has an echo written in the chart with an RVSP of 58 and has obstructive sleep apnea. The obstructive sleep apnea is likely the cause of his pulmonary hypertension. At some point he will need a CT angiogram of the chest to exclude chronic thromboembolic disease. During this admission I would coordinate this with renal so that can be performed before hemodialysis. In the meantime I would also ox obtain upper lower extremity Dopplers to exclude a DVT. Patient is 100% better without any active treatment now and I do not believe he needs systemic anticoagulation at this point. Regarding his obstructive sleep apnea patient will require an outpatient CPAP titration which is scheduled on 05/20/2021. I do not think that uncontrolled obstructive sleep apnea is causing his current clinical presentation of dyspnea on exertion with acute hypoxic respiratory failure. In the meantime I will order an overnight oximetry on room air to his says his oxygenation tonight. Cardiology has been consulted regarding his acute onset dyspnea on exertion, history of aortic stenosis, positive troponin and history of coronary artery disease with stents. Patient might have ischemic mitral regurgitation. Patient has evidence of interstitial infiltrates on his chest x-ray elevated BNP but does not appear to be acutely fluid overloaded at this time. Renal has been consulted regarding the need for dialysis. 04/28 patient tells me he is clinically unchanged from yesterday. He is much better than he when he presented to the hospital but still has some shortness of breath. He is on 2 L nasal cannula oxygen with saturations 93%. He denies any worsening cough and states his cough is minimal, denies phlegm, hemoptysis or chest pain. patient had an overnight oximetry last night on 2 L nasal cannula and his baseline saturation was 92%, lowest saturation was 81% and time with saturation less than or equal to 88% was 10 minutes. I will repeat overnight oximetry on 3 l tonight. Upper and lower Extremity Dopplers are negative for DVT. He is scheduled to get a Lexiscan cardiac stress, CT angiogram of chest and hemodialysis lat
[2021-04-29] MEDS: IRON SUCROSE COMPLEX 200 MG in SODIUM CHLORIDE 0.9% IV 50 ML 120 MG IVPB (09:14)
[2021-04-29] MEDS: HEPARIN SODIUM 5,000 UNITS/ML VIAL 5000 UNITS SUB-Q (09:15)
[2021-04-29] MEDS: QUEtiapine FUMARATE 100 MG TABLET PO (09:15)
[2021-04-29] MEDS: PANTOPRAZOLE 40 MG TABLET PO (09:15)
[2021-04-29] MEDS: busPIRone HCL 10 MG TABLET 30 MG PO (09:16)
[2021-04-29] MEDS: ASPIRIN 81 MG ENTERIC TABLET PO (09:16)
[2021-04-29] MEDS: FINASTERIDE 5 MG TABLET PO (09:16)
[2021-04-29] MEDS: cloNIDine HCL 0.1 MG TABLET PO ×2 (09:16→13:20)
[2021-04-29] MEDS: CLOPIDOGREL BISULFATE 75 MG TABLET PO (09:16)
[2021-04-29] MEDS: AMOXICILLIN/CLAVULANATE K 500-125 MG TAB 1 TABLET PO (09:17)
[2021-04-29] MEDS: IMIPRAMINE HCL 25 MG TABLET PO (09:17)
[2021-04-29] MEDS: ROSUVASTATIN 10 MG TABLET PO (09:17)
[2021-04-29] MEDS: ISOSORBIDE MONONITRATE 30 MG TAB.ER.24H PO (09:17)
[2021-04-29] MEDS: CYANOCOBALAMIN 1,000 MCG TABLET 1000 MCG PO (09:17)
[2021-04-29] MEDS: HYDROcodone/acetaminophen (*CRX) 7.5-325 MG TABLET 1 TAB PO ×2 (09:17→13:21)
[2021-04-29] MEDS: METOPROLOL SUCCINATE EXT REL 25 MG TABCR PO (09:18)
[2021-04-29] MEDS: FUROSEMIDE 80 MG TABLET PO (09:18)
[2021-04-29] MEDS: DOCUSATE SODIUM 100 MG CAPSULE PO (09:19)
[2021-04-29] MEDS: PREGABALIN (*CRX) 50 MG CAPSULE 100 MG PO (09:21)
[2021-04-29 09:32] LABS: Glucose Point of Care 123 mg/dl (65-105)
--- NOTE | 2021-04-29 10:20 | HOMEO2EVAL ---
Evaluation was performed at [facility] Home Oxygen Evaluation RC: Home Oxygen (O2) Evaluation Start: 04/29/21 09:07 Freq: ONCE Status: Active Protocol: RPE Activity Type Activity Date Activity User E-Sign Co-Sign Detail Recorded Client Recorded Date Recorded By Document 04/29/21 09:45 GEE [email or web address] 04/29/21 10:20 GEE Document 04/29/21 09:46 GEE [email or web address] 04/29/21 10:20 GEE Document 04/29/21 09:50 GEE [email or web address] 04/29/21 10:20 GEE Document 04/29/21 09:51 GEE [email or web address] 04/29/21 10:20 GEE Document 04/29/21 09:52 GEE [email or web address] 04/29/21 10:20 GEE Document 04/29/21 10:00 GEE [email or web address] 04/29/21 10:20 GEE 04/29/21 04/29/21 04/29/21 09:45 09:46 09:50 Home O2 Evaluation Test Phase Resting Resting Exercise Oxygen Delivery Room Air Nasal Cannula Nasal Cannula Oxygen Flow Rate (L/min) 1 1 Pulse Oximetry (90-100 %) 87 L 92 87 L Pulse Rate (60-100 beats/min) 87 96 Activity Tolerance Ambulation Distance (feet) Home Oxygen Evaluation Comments Treatment Charges O2 Evaluation - Inpatient 04/29/21 04/29/21 04/29/21 09:51 09:52 10:00 Home O2 Evaluation Test Phase Exercise Exercise Resting Oxygen Delivery Nasal Cannula Nasal Cannula Nasal Cannula Oxygen Flow Rate (L/min) 2 3 1 Pulse Oximetry (90-100 %) 87 L 93 93 Pulse Rate (60-100 beats/min) 99 70 Activity Tolerance Good Ambulation Distance (feet) 250 Home Oxygen Evaluation Comments Pt requires 1 L at rest and 3L with exertion/ activity Treatment Charges
--- NOTE | 2021-04-29 10:35 | PCRCNOTE ---
HOME O2 EVAL COMPLETE. PT NEEDS 1 L REST AND 3 L ACTIVITY AND NOC. ARRANGING O2 SET UP WITH [facility]. A TRANSPORT TANK WILL BE BROUGHT UP TO PT ROOM PRIOR TO D/C
--- NOTE | 2021-04-29 13:09 | PM.PNCARD ---
Progress Note: A&P Assessment and Plan (1) Coronary artery disease: Code(s): I25.10 - Atherosclerotic heart disease of [place] coronary artery without angina pectoris Status: Acute Assessment and Plan: History of coronary artery disease with PCI done at [facility] several years ago. Details of this intervention are unknown. Due to increasing dyspnea and elevated troponin levels, a lexiscan stress test was ordered and performed yesterday. He has two areas of fixed perfusion defect suggesting infarct. No reversible component to suggest ischemia. Currently not experiencing any chest pain or dyspnea. Patient is to follow up with his usual software application tester for management of his CAD. (2) Shortness of breath: Code(s): R06.02 - Shortness of breath Status: Acute Assessment and Plan: Multiple recent hospitalizations for dyspnea. Pulmonology involved in his case during this hospitalization with plans to pursue outpatient pulmonary function study to assess for COPD. Certainly likely that he has chronic lung disease due to his longstanding history of cigarette smoking. Currently not experiencing dyspnea at rest, comfortable at rest on 2L O2 per nasal cannula (3) Aortic stenosis: Code(s): I35.0 - Nonrheumatic aortic (valve) stenosis Status: Acute Assessment and Plan: Moderate by recent echo from [facility]. His software application tester, Dr. Luke will monitor this as an outpatient. Subjective Date/time seen: 04/29/21 13:09 cardiology follow-up for elevated troponin Date of service 04/29/2021: Patient says that he is feeling well today. He does not voice any complaints today of any kind. Reviewed the results of his Lexiscan stress test with him. Answered all questions to his satisfaction. He is appropriate for discharge home today from a cardiac perspective. I told him he should follow-up with his usual software application tester in a matter of 2-3 weeks. Review of Systems Constitutional: Constitutional: Reports lethargy Eyes: Eyes: Reports no additional eye complaints ENT: Reports system reviewed and no additional complaints, except as documented Cardiovascular: Cardiovascular: Reports as per HPI and Reports dyspnea on exertion Respiratory: Respiratory: Reports dyspnea on exertion Gastrointestinal: Gastrointestinal: Reports no additional gastrointestinal complaints Musculoskeletal: Musculoskeletal: Reports no additional musculoskeletal complaints Integumentary/Breasts: Skin/Breast: Reports system reviewed and no additional complaints, except as docu Neurologic: Reports system reviewed and no additional complaints, except as documented Endocrine: Endocrine: Reports no additional endocrine complaints Hematologic/Lymphatic: Hematologic/Lymphatic: Reports no additional hematologic/lymphatic complaints Allergic/Immunologic: Allergic/Immunologic: Reports no additional allergic/immunologic complaints Exam Const: General: comfortable and no acute distress HENMT: Head: normal to inspection Mouth: Yes moist mucous membranes Eyes: General: appearance normal, both eyes and all related structures Sclera: sclerae normal Pupils: Equal, round and reactive pupils present Neck: Neck: supple and no JVD Resp: Effort & Inspection: normal respiratory effort Other: Breath sounds are markedly diminished throughout both lung perez Cardio: Rate: regular rate Rhythm: regular rhythm Heart sounds: Murmur heart sound present systolic III/, with radiation to the carotids and at the base GI: Auscultation: normal bowel sounds Skin: General skin exam: normal color Other: Left arm AV fistula Neuro: General: patient oriented x3 Cranial nerves: Yes Equal, round and reactive pupils present Cognition (Neuro): normal cognition Extrem: General: normal to inspection Other: There is no peripheral edema currently Objective Data Vital Signs Vital Signs: Vital Signs - 24 hr 04/28/21
[2021-04-29 13:11] LABS: Glucose Point of Care 174 mg/dl (65-105)
--- NOTE | 2021-04-29 13:16 | PM.DS ---
DS: Admitting Diagnosis Discharge Date 04/29/21 Admitting Diagnosis francois DS: Discharge Diagnosis Discharge Diagnosis (1) FRANCOIS (dyspnea on exertion): Code(s): R06.00 - Dyspnea, unspecified Status: Acute Assessment and Plan: Pt states he has been hospitalized multiple times for this -CXR showing mild CHF - troponins more elevated than they have been in the past. BNP remains at >35,000. -He has known moderate aortic stenosis but the echo states that this has not significantly changed since 2019 -Recommend stress test which will be done today. He is at high risk since he has cardiovascular disease, diabetes, end-stage renal disease, and smokes 2 packs per day. He may have atypical symptoms. No acute findings. It does show fixed and stable disease. -D-dimer elevated, upper lower ultrasound without DVTs. CTA show no PE -He has a hx of untreated sleep apnea and will need an official sleep study outpt -patient needs to quit smoking -Continue dialysis on a // schedule - COVID-19 less likely. Patient has been vaccinated about 3 months ago with both COVID vaccines with no evidence of PNA -He requires 1L of o2 and 3L of o2 with rest (2) CHF (congestive heart failure): Qualifiers: Heart failure chronicity: unspecified Heart failure type: unspecified Qualified Code(s): I50.9 - Heart failure, unspecified Code(s): I50.9 - Heart failure, unspecified Status: Chronic Assessment and Plan: Echo last week at [facility] showed EF 71% with mild LVH. Mod , mild aortic regurgitation, mild mitral regurg, and no pericardial effusion. -Pt has had a heart cath about 3 years ago with stent placement in [place] by Dr. Underwood. (3) Hypertension: Code(s): I10 - Essential (primary) hypertension Status: Chronic Assessment and Plan: bp at d/c 105/45 - continue clonidine, Lasix, Imdur, and metoprolol (4) End-stage renal disease on hemodialysis: Code(s): N18.6 - End stage renal disease; Z99.2 - Dependence on renal dialysis Status: Chronic Assessment and Plan: Continue dialysis M,W,F (5) DM2 (diabetes mellitus, type 2): Code(s): E11.9 - Type 2 diabetes mellitus without complications Status: Chronic Assessment and Plan: Last glucose 174 -patient is unsure if he takes anything at home for this. He says he takes a lot of pills and he isnt unsure. He has 1 new medication that is not on his home med list but does not know the name. i told him when he gets home he needs to verify his meds with his pcp (6) Anemia of chronic disease: Code(s): D63.8 - Anemia in other chronic diseases classified elsewhere Status: Chronic Assessment and Plan: Last hgb 8.7 -likely due to anemia of chronic disease -doubt contributing to his sob - anemia panel appears to be anemia chronic disease. B12 slightly low, replaced (7) Tobacco abuse: Code(s): Z72.0 - Tobacco use Status: Chronic Assessment and Plan: Pt needs to quit smoking and understands this (8) Elevated troponin: Code(s): R77.8 - Other specified abnormalities of plasma proteins Status: Acute Assessment and Plan: As above (9) Suspected sleep apnea: Code(s): R29.818 - Other symptoms and signs involving the nervous system Status: Acute Assessment and Plan: Will need outpatient study (10) Acute respiratory failure with hypoxia: Code(s): J96.01 - Acute respiratory failure with hypoxia Status: Acute Assessment and Plan: Likely due to combination of CHF exacerbation and pulmonary disease. Plan as detailed above DS: Summary Hospital Course Hospital Course: dos 04/29/21 patient is a 70-year-old male who typically goes to [facility] who came to [facility] complaints of shortness of breath and dyspnea on exertion continued after recent admission.
== END 2021-04-29 15:45 | disposition home or self-care (01) | DRG 291 ==
LOC: ANHED 06:28 → ANHIMU 06:38
PROVIDERS: Internal Medicine Nephrology; Physician Assistant; Admitting Provider Internal Medicine; Emergency Provider General Practice; PCP Family Medicine; Visit Provider Family Medicine
DX: I13.2 Hypertensive heart and chronic kidney disease with heart failure and with stage 5 chronic kidney disease, or end stage renal disease (principal); N18.6 End stage renal disease; J96.01 Acute respiratory failure with hypoxia; E11.22 Type 2 diabetes mellitus with diabetic chronic kidney disease; G47.33 Obstructive sleep apnea (adult) (pediatric); D63.1 Anemia in chronic kidney disease; F41.1 Generalized anxiety disorder; I25.10 Atherosclerotic heart disease of native coronary artery without angina pectoris; F17.210 Nicotine dependence, cigarettes, uncomplicated; I35.0 Nonrheumatic aortic (valve) stenosis; Z96.642 Presence of left artificial hip joint; Z98.42 Cataract extraction status, left eye; Z98.41 Cataract extraction status, right eye; Z99.2 Dependence on renal dialysis; Z90.49 Acquired absence of other specified parts of digestive tract; Z95.5 Presence of coronary angioplasty implant and graft
CPT/HCPCS: 36415; 36600; 71045; 71046; 71275; 78452; 80048; 80053; 80069; 82375; 82607; 82728; 82746; 82805; 82948; 83036; 83050; 83540; 83550; 83615; 83690; 83735; 83880; 84443; 84466; 84484; 85025; 85027; 85380; 85610; 85730; 86140; 86480; 86704; 86706; 87040; 87340; 93005; 93017; 93970; 94002; 94618; 94640; 94762; 96374; 96375; 96376; 99285; 99291; A9270; A9502; G0257; G0378; J1644; J1756; J1940; J2405; J2785; J7030; Q5105; Q9967

== ENCOUNTER 2021-08-05 04:00 | Inpatient (IN) | payer OTHER, SELFPAY ==
[2021-08-05] VITALS (57 sets, daily range): BP systolic 106–159; BP diastolic 34–137; PULSE 56–104; RESP 14–26; TEMP 35.4–37.3; O2SAT 93–100; BMI 26.4
--- NOTE | 2021-08-05 | ECHO_ITS ---
Patient Info Name: William Valentin Age: 70 years : 1950 Gender: Male Ht: 70 in Wt: 185 lbs BSA: 2.05 m2 HR: 75 bpm BP: 133 / 45 mmHg Heart Rhythm: Sinus Arrhythmia Technical Quality: Fair Exam Date: 08/05/2021 8:52 AM Exam Location: [facility] Pulmonary Patient Status: Inpatient Admit Date: 08/05/2021 Staff Ordering Physician: Melissa Armendariz MD [employer]sman: Minerva Marie RDCS Attending Provider: Naveen Almonte MD Referring Physician: Kala BARTLETT; Exam Type: CA echo doppler color flow Study Info Indications - pulmonary edema Complete two-dimensional, color flow and Doppler transthoracic echocardiogram is performed. Summary 1. Complete two-dimensional, color flow and Doppler transthoracic echocardiogram is performed. 2. Technically difficult study, suboptimal image quality. Normal LV size, mild LVH; normal overall LV systolic function, ejection fraction 60-65%. Diastolic dysfunction is present with elevated left atrial pressures. Mild left atrial enlargement. Normal RV size and systolic function. Mitral valve leaflets mildly thickened; dense mitral annular calcification, mild MR, no significant stenosis by Doppler. Aortic valve is not well visualized, appears calcified; mild aortic stenosis by Doppler. Mild TR. RVSP 32 mmHg. Consider further evaluation of aortic valve by NATALEE if clinically appropriate. Left Ventricle Left ventricular chamber dimension is normal. Left ventricular systolic function is normal, estimated at 60-65%. There is mildly increased left ventricular wall thickness. The left ventricular diastolic function is abnormal. E/e' 21.2 is abnormal. Right Ventricle Right ventricular chamber dimension is normal. Right ventricular systolic function is normal. Left Atria Left atrial chamber dimension is mildly enlarged. Right Atria Right atrial chamber dimension is normal. Aortic Valve The aortic valve is not well visualized. There is mild aortic valve regurgitation. Pulmonic Valve The pulmonic valve is not well visualized. Mitral Valve The mitral valve has thickened leaflets. There is no mitral valve stenosis. There is mild mitral valve regurgitation. The mitral valve annulus is severely calcified. Tricuspid Valve The tricuspid valve leaflets are normal. There is mild tricuspid valve regurgitation. Pericardium/Pleural The pericardium appears epicardial fat pad. Inferior Vena Cava Dilated inferior vena cava with <50% collapse upon inspiration consistent with elevated right atrial pressure, 10 mmHg. Aorta The aortic root size at the sinus of Valsalva is normal. Left Ventricular Outflow Tract Name Value Normal LVOT 2D LVOT Diameter 2.1 cm LVOT Doppler LVOT Peak Gradient 5 mmHg LVOT Mean Gradient 2 mmHg LVOT VTI 26 cm LVOT VTI/AV VTI Ratio 0.9 LVOT Stroke Volume 88 ml LVOT CO 5.4 l/min LVOT CI 2.6 l/min/m2 Pulmonic V
--- NOTE | ~2021-08-05 | XR_ITS ---
EXAMINATION: XR chest 1V portable DATE: 08/09/2021 06:04 INDICATION: Acute respiratory failure. TECHNIQUE: A single frontal view of the chest was obtained. COMPARISON: Chest single view 08/08/2021, chest CT 04/28/2021 FINDINGS: There is a diffuse interstitial pattern in the lungs, consistent with mild pulmonary edema. No pleural effusion or pneumothorax. Cardiomegaly is noted. There is a venous stent overlying left s houlder. IMPRESSION: 1. Mild pulmonary edema. 2. Cardiomegaly. Reviewed, dictated and finalized at location A. C BOOK DESIGNER
--- NOTE | ~2021-08-05 | XR_ITS ---
EXAMINATION: XR chest 1V portable EXAM DATE: 08/05/2021 04:31 INDICATION: Dyspnea, Pt Intubated Account Collector, Low 02 Sat TECHNIQUE: Portable AP frontal chest x-ray was obtained. Comparison is made to prior examination from 04/27/2021. FINDINGS: Endotracheal tube tip is 2 centimeters above the yeny. There is diffuse bilateral pneumonia and/or edema. There is moderate cardiomegaly. There are no siza ble pleural effusions. There is no pneumothorax suspected. The bones and soft tissues are unremar kable. There is no significant interval change compared to prior exam. IMPRESSION: 1. ET tube in position. 2. Diffuse bilateral pneumonia or edema. 3. Cardiomegaly. Reviewed, dictated and finalized at location A. TING MATERIAL REMOVER
--- NOTE | ~2021-08-05 | CT_ITS ---
EXAMINATION: CT brain wo con DATE: 08/09/2021 11:02 INDICATION: Encephalopathy. TECHNIQUE: Computed tomography (CT) of the head was performed without intravenous contrast. The mA wa s adjusted according to patient size. Iterative reconstruction technique was employed. The dose-lengt h product was 1135.00 mGy-cm. COMPARISON: None FINDINGS: There are old infarcts in left parietal and occipital lobes. There is no intracranial hemor rhage, acute infarction, or abnormal intracranial mass lesion. There are scattered areas of low atten uation in the cerebral white matter. There is ex vacuo dilatation of occipital horn of left lateral v entricle. There is mild mucosal thickening in right maxillary sinus. There are likely changes of righ t ocular lens replacement surgery. There is a small left mastoid effusion. IMPRESSION: 1. 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 2. Mild nonspecific cerebral white matter disease, which likely represents chronic small vessel ische wesley disease. Reviewed, dictated and finalized at location A. TECHNICIAN IMPRESSION: 1. 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 2. Mild nonspecific cerebral white matter disease, which likely represents associate jeannie small vessel ischemic disease.
--- NOTE | ~2021-08-05 | XR_ITS ---
EXAMINATION: XR chest 1V portable DATE: 08/10/2021 06:10 INDICATION: Acute respiratory failure. TECHNIQUE: A single frontal view of the chest was obtained on 2 radiographs. COMPARISON: Chest single view 08/09/2021 FINDINGS: A skin fold overlies right chest. There is a diffuse interstitial pattern in the lungs, con sistent with mild pulmonary edema. No pleural effusion or pneumothorax. Cardiomegaly is noted. A veno us stent overlies left shoulder. IMPRESSION: 1. Mild pulmonary edema. 2. Cardiomegaly. Reviewed, dictated and finalized at location A. CTOR EXECUTIVE COMMUNICATIONS
--- NOTE | ~2021-08-05 | XR_ITS ---
EXAMINATION: XR chest 1V portable EXAM DATE: 08/08/2021 05:50 INDICATION: Acute respiratory failure, pulmonary edema, pneumo. TECHNIQUE: Portable AP frontal chest x-ray was obtained. Comparison is made to prior examination from 08/07/2021. FINDINGS: Endotracheal tube tip is 2.5 cm above the yeny. Feeding tube has been inserted with tip in position. There is diffuse bilateral pneumonia and/or edema. There is moderate cardiomegaly. There are no siza ble pleural effusions. There is no pneumothorax suspected. There is left axillary stent. Airspace disease is with mild improvement. IMPRESSION: 1. Tubes in position 2. Improving bilateral pneumonia or edema. 3. Cardiomegaly. I discussed ET tube position with Dr. Melissa Armendariz at 08/07/2021 07:23 CUSTOMER EXPERIENCE STRATEGIST. OMER EXPERIENCE STRATEGIST Reviewed, dictated and finalized at location A. IMPRESSION: 1. Tubes in position 2. Improving bilateral pneumonia or edema. 3. Cardiomegaly. I discussed ET tube position with Dr. Melissa Armendariz at 08/07/2021 07:23 CUSTOMER EXPERIENCE STRATEGIST .
--- NOTE | ~2021-08-05 | XR_ITS ---
EXAMINATION: XR chest 1V portable EXAM DATE: 08/07/2021 06:15 INDICATION: Acute respiratory failure, pulmonary edema, pneumo TECHNIQUE: Portable AP frontal chest x-ray was obtained. Comparison is made to prior examination from 08/06. FINDINGS: Endotracheal tube tip is 5 mm above the yeny. Feeding tube has been inserted with tip in position. There is diffuse bilateral pneumonia and/or edema. There is moderate cardiomegaly. There are no siza ble pleural effusions. There is no pneumothorax suspected. There is left axillary stent. Airspace disease is stable or with mild improvement. IMPRESSION: 1. ET could be safely retracted 2 cm. 2. Diffuse bilateral pneumonia or edema. 3. Cardiomegaly. I discussed ET tube position with Dr. Melissa Armendariz at 08/07/2021 07:23 ASSOCIATE PROFESSOR OF COUNSELING. Reviewed, dictated and finalized at location A. CIATE PROFESSOR OF COUNSELING IMPRESSION: 1. ET could be safely retracted 2 cm. 2. Diffuse bilateral pneumonia or edema. 3. Cardiomegaly. I discussed ET tube position with Dr. Melissa Armendariz at 08/07/2021 07:23 ASSOCIATE PROFESSOR OF COUNSELING .
--- NOTE | ~2021-08-05 | XR_ITS ---
EXAMINATION: XR chest 1V portable EXAM DATE: 08/06/2021 06:09 INDICATION: Acute respiratory failure, pulmonary edema, pneumo. TECHNIQUE: Portable AP frontal chest x-ray was obtained. Comparison is made to prior examination from 08/05/2021. FINDINGS: Endotracheal tube tip is 1 centimeters above the yeny. Feeding tube has been inserted wi th tip in position. There is diffuse bilateral pneumonia and/or edema. There is moderate cardiomegaly. There are no siza ble pleural effusions. There is no pneumothorax suspected. There is left axillary stent. Is airspace disease is stable or with mild improvement. IMPRESSION: 1. ET could be safely retracted 1 cm. 2. Diffuse bilateral pneumonia or edema. 3. Cardiomegaly. BUILDER SUPERVISOR Reviewed, dictated and finalized at location A.
--- NOTE | ~2021-08-05 | XR_ITS ---
EXAMINATION: XR abdomen NG/feed tube insert DATE: 08/05/2021 08:43 INDICATION: Nasogastric tube placement. TECHNIQUE: A semiupright view of the abdomen was obtained. COMPARISON: None. FINDINGS: The lower abdomen is excluded. There are no dilated loops of bowel. The nasogastric tube ti p is in the stomach. IMPRESSION: 1. Nasogastric tube tip in the stomach. Reviewed, dictated and finalized at location A. F LIFESTYLE OFFICER
--- NOTE | 2021-08-05 04:05 | ECG_ITS ---
Measurements Intervals [place] Rate: 95 P: 73 IN: 259 QRS: 23 QRSD: 113 T: 87 QT: 369 QTc: 464 Interpretive Statements SINUS RHYTHM WITH FIRST DEGREE AV BLOCK INTRAVENTRICULAR CONDUCTION DELAY NONSPECIFIC ST & T-WAVE ABNORMALITY- LAT/HIGH LAT LEADS BASELINE ARTIFACT- V3-V5 ABNORMAL ECG Electronically Signed On 08-05-2021 5:46:35 [employer] by Romaine Rivers D.O.
--- NOTE | 2021-08-05 04:06 | ED.GENADULT ---
HPI - General Adult General Chief complaint: Shortness of Breath/Dyspnea Stated complaint: resp distress Time Seen by Provider: 08/05/21 04:20 History of Present Illness HPI narrative: Patient is a 70-year-old gentleman who presents to emergency department with chief complaint of respiratory distress. Patient called EMS this evening and was found to be minimally responsive and having shortness of breath. Patient's oxygen saturations were very low EMS assisted with ventilation and ended up intubating the patient using etomidate and Versed. After the airway was secured in the field they discussed with her medical control who diverted them to a facility further away from their facility. The patient is unable to provide history at this time patient has history of end-stage renal disease and on dialysis was last dialyzed yesterday. Related Data Home Medications Medication Instructions Recorded Confirmed Velphoro 500 mg PO TID 04/23/21 06/19/21 aspirin 81 mg PO DAILY 04/23/21 06/19/21 buspirone 30 mg PO BID 04/23/21 06/19/21 cholecalciferol (vitamin D3) 50 mcg PO EVERY OTHER DAY 04/23/21 06/19/21 [Vitamin D3] cholecalciferol (vitamin D3) 100 mcg PO EVERY OTHER DAY 04/23/21 06/19/21 [Vitamin D3] clonidine HCl 0.1 mg PO TID 04/23/21 06/19/21 clopidogrel 75 mg PO DAILY 04/23/21 06/19/21 docusate sodium 100 mg PO DAILY 04/23/21 06/19/21 finasteride 5 mg PO DAILY 04/23/21 06/19/21 furosemide 80 mg PO DAILY 04/23/21 06/19/21 hydrocodone-acetaminophen 1 tablet PO TID PRN 04/23/21 06/19/21 imipramine HCl 25 mg PO DAILY 04/23/21 06/19/21 isosorbide mononitrate 30 mg PO DAILY 04/23/21 06/19/21 metoprolol succinate 25 mg PO DAILY 04/23/21 06/19/21 nicotine 1 patch TRANSDERMAL DAILY 04/23/21 06/19/21 omeprazole 20 mg PO BID 04/23/21 06/19/21 pregabalin 100 mg PO DAILY 04/23/21 06/19/21 quetiapine 100 mg PO DAILY 04/23/21 06/19/21 ropinirole 3 mg PO HS 04/23/21 06/19/21 rosuvastatin 10 mg PO DAILY 04/23/21 06/19/21 Allergies Allergy/AdvReac Type Severity Reaction Status Date / Time adhesive tape AdvReac Unknown Verified 06/19/21 15:20 ibuprofen AdvReac Unknown Verified 06/19/21 15:20 Review of Systems Review of Systems: A 10 system review of systems was completed on the patient and is negative except for what is stated in the HPI. Nursing and ancillary documentation was reviewed. [facility] Past Medical History Medical History Anemia of chronic disease AV fistula CHF (congestive heart failure) DM2 (diabetes mellitus, type 2) End-stage renal disease on hemodialysis Generalized anxiety disorder Hypertension Suspected sleep apnea Tobacco abuse Surgical History Surgical History Cataract extraction status H/O heart artery stent History of tonsillectomy History of total left hip arthroplasty Hx of cholecystectomy Family History Family History Sibling 2019 novel coronavirus-infected pneumonia (NCIP) Mother Heart disease congestive heart failure Father Heart disease Social History Social History Social History: Patient smokes 2 packs per day but does not drink alcohol. He lives at home alone. He would like to be a full code. If he was unable to make decisions for himself he would like his son William Adams to make decisions for him. 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
[2021-08-05 04:34] LABS: Basophils Absolute Auto 0.1 K/mm3 (0.0-0.1); Basophils Percent Auto 0.3 % (0.2-1.2); Eosinophils Absolute Auto 0.2 K/mm3 (0-0.3); Eosinophils Percent Auto 1.3 % (0-4.4); Hematocrit 35.2 % (42.0-52.0); Hemoglobin 11.1 g/dL (14.0-18.0); Immature Granulocyte Absolute 0.23 K/mm3 (0.00-0.031); Immature Granulocyte Percent A 1.5 % (0-0.5); Lymphocytes Absolute Auto 1.18 K/mm3 (0.9-3.2); Lymphocytes Percent Auto 7.5 % (18.3-44.2); Mean Corpuscular HGB Conc 31.5 g/dl (32-36); Mean Corpuscular Hemoglobin 28.3 pg (26-34); Mean Corpuscular Volume 89.8 fl (80-100); Mean Platelet Volume 11.1 fl (7.4-10.4); Monocytes Absolute Auto 0.6 K/mm3 (0.1-0.6); Monocytes Percent Auto 3.7 % (2.6-8.5); Neutrophils Absolute Auto 13.6 K/mm3 (1.3-6.7); Neutrophils Percent Auto 85.7 % (45.5-73.1); Platelet Count Result 194 k/mm3 (150-375); Red Blood Count 3.92 M/mm3 (4.6-6.20); Red Cell Distribution Width 17.1 % (11.5-14.5); White Blood Count 15.8 K/mm3 (4.5-10.0)
[2021-08-05] MEDS: PROPOFOL IV EMULSION 100 ML 2.53 MG IV CONT (04:37)
[2021-08-05 04:46] LABS: Base Excess ABG 2.6 mEq/l (+/-2.0); Carboxyhemoglobin 1.8 % THb (0-2.0); Fractional Inspired Oxygen 100 %; HCO3 ABG 28.6 mEq/l (22.0-26.0); Methemoglobin ABG 0.3 %THb (0-1.5); Oxygen Content ABG 14.3 %vol (16.0-22.0); Oxygen Saturation ABG 99.5 % (95.0-100.0); PCO2 ABG 50.8 mmHg (35.0-45.0); PO2 ABG 246.2 mmHg (80.0-100.0); PO2 FiO2 Ratio Arterial Blood 2.46 %; Reduced Hemoglobin 1.9 %THb (0-5.0); Total Hemoglobin 10.1 g/dL (12.0-18.0); pH ABG 7.368 (7.350-7.450)
[2021-08-05 04:48] LABS: Device VENTILATOR; Modified Allen's Test Pass; Site Drawn RIGHT RADIAL
[2021-08-05 04:48] LABS: Add Urine Microscopic? YES; Appearance Urine Clear (Clear); Bacteria Urine Trace /hpf; Bilirubin Urine Negative (Negative); Blood Urine 1+ (Negative); Color Urine Yellow (Yellow); Glucose Urine UA Negative (Negative); Ketones Urine Negative (Negative); Leukocyte Esterase Ur Trace LEU/UL (Negative); Nitrate Urine Negative (Negative); Protein Urine 3+ mg/dL (Negative); Specific Grav Ur 1.015 (1.001-1.035); Squamous Epithelial Cell Urine Rare /hpf (Few); Urobilinogen Urine Negative mg/dL (<2.0); WBC Urine 16-20 /hpf
[2021-08-05 04:49] LABS: Arterial Blood Gas PEEP 5 cmH2O; Arterial Blood Gas Tidal Volume 400 ml; Arterial Blood Gas Vent Mode CMV; Arterial Blood Gas Ventilator rate 15 /MIN
[2021-08-05 04:51] LABS: Alanine Aminotransferase 18 U/L (4-50); Alkaline Phosphatase 202 U/L (38-126); Anion Gap 14 mmol/L (8-16); Aspartate Amino Transferase 25 U/L (17-59); Bilirubin,Total 0.7 mg/dL (0.2-1.3); Blood Urea Nitrogen 47 mg/dL (9-20); Calcium 8.4 mg/dL (8.4-10.2); Carbon Dioxide 29 mmol/L (22-30); Chloride 97 mmol/L (98-107); Estimated CRCL calculation 9 ml/min; Estimated Glomerular Filt Rate 8; Glucose 165 mg/dL (65-110); Magnesium 2.9 mg/dL (1.6-2.3); Potassium 4.7 mmol/L (3.4-5.0); Sodium 140 mmol/L (137-145)
[2021-08-05 04:52] LABS: Lactic Acid Reflex 2.2 mmol/L (0.7-2.1)
[2021-08-05 04:53] LABS: Partial Thromboplastin Time 33.2 SECONDS (22.3-36.8); Prothrombin Time 13.5 Seconds (11.1-14.7)
[2021-08-05 05:06] LABS: SARS-CoV-2 RNA PCR Negative
[2021-08-05 05:07] LABS: NT Pro B Type Natriuretic Pept > 35000 pg/mL (5-100); Troponin I 0.219 ng/mL (0.000-0.034)
--- NOTE | 2021-08-05 07:14 | PM.CNNEP ---
Assessment and Plan Assessment and plan (1) End stage renal disease: Code(s): N18.6 - End stage renal disease Status: Chronic Assessment and Plan: The patient has end-stage renal disease. He dialyzes Wednesdays and Fridays. I do not know if he went to dialysis yesterday. Will try to get records from the unit. His chest x-ray shows volume overload. Will do dialysis today to get fluid off. His electrolytes are okay. We can do a 3K bath. (2) Fluid overload: Qualifiers: Hypervolemia type: unspecified Qualified Code(s): E87.70 - Fluid overload, unspecified Code(s): E87.70 - Fluid overload, unspecified Status: Acute Assessment and Plan: The patient has volume overload on his chest x-ray. This is apparently a frequent finding. I do not know if he went to dialysis yesterday or if they did not get all as fluid or possibly he needs a lower dry weight. Will get some records from [facility] to try to tease this out. (3) Elevated troponin: Code(s): R77.8 - Other specified abnormalities of plasma proteins Status: Acute Assessment and Plan: Troponins are a little bit elevated. However this is actually better than it has ever been at this hospital. He did have the stress test done on April 28 and it showed 2 infarcts but nothing reversible. (4) Suspected sleep apnea: Code(s): R29.818 - Other symptoms and signs involving the nervous system Status: Acute Assessment and Plan: The patient does not use a CPAP machine. (5) Tobacco abuse: Code(s): Z72.0 - Tobacco use Status: Chronic Assessment and Plan: The patient continues to smoke (6) Hypertension: Code(s): I10 - Essential (primary) hypertension Status: Chronic Assessment and Plan: Blood pressure is under good control (7) Anemia of chronic disease: Code(s): D63.8 - Anemia in other chronic diseases classified elsewhere Status: Chronic Assessment and Plan: Hemoglobin is 11.1. Will hold off on Epogen (8) Renal osteodystrophy: Code(s): N25.0 - Renal osteodystrophy Status: Acute Assessment and Plan: We can check a phosphorus level in the morning (9) DM2 (diabetes mellitus, type 2): Code(s): E11.9 - Type 2 diabetes mellitus without complications Status: Chronic Assessment and Plan: On Accu-Cheks plus sliding scale insulin. Management per hospitalist. History of Present Illness Reason for Consult Consult date: 08/05/21 Chief Complaint Chief complaint: fluid overload,pneumonia,respiratory failure,esrd, History of Present Illness Narrative: William is an unfortunate 70-year-old gentleman who has multiple medical problems including end-stage renal disease on dialysis 3 times a week, on Wednesdays and Fridays. Sleep apnea but does does not use a CPAP machine, anemia of chronic kidney disease, congestive heart failure, hyperlipidemia, hypertension, tobacco use, anxiety. The patient lives at home. He hit his the emergency button at his house and 911 responded. They found him collapsed in and hypoxic. His O2 sats were only 65% and so he was intubated in the field. Was brought to the emergency room here. He was due for dialysis yesterday. It is unknown whether he made it or not. Records are unavailable. The patient cannot give a history. His blood pressure was okay when he got here. He was given sedatives because he was a bit anxious. And with sedatives his blood pressure dropped into the 110s so they are keeping the sedative somewhat light. [facility] does not do dialysis anymore. However in the past he would show up frequently for volume overload at that hospital. For chest pain. His troponins were elevated but were felt to be due to dialysis. His chest x-ray was a bit wet and he was dialyzed and this improved. He was discharged to have a stress test as an outp
[2021-08-05 07:31] LABS: Reflex Lactic Acid Yes or No Add Lactic
[2021-08-05 08:26] LABS: Lactic Acid 1.1 mmol/L (0.7-2.1)
[2021-08-05] MEDS: PANTOPRAZOLE SODIUM IV 40 MG VIAL IV PUSH (08:29)
--- NOTE | 2021-08-05 08:35 | ADMGEN ---
This patient, William Valentin, was admitted to Intensive Care Unit-5. Patient oriented to hospital policies and general routines including ID bracelet, bed and alarms, visiting hours, pain management, procedures, bathroom and other care routines, personal items, smoking policy, room service/diet, and visiting hours. Information on how to activate the Rapid Response Team has been discussed. Patient/Family are encouraged to report perceived risks to care and to ask questions if they do not understand what they are told or what they should do. Patient arrived with propofol infusion rate set at 35mcg/mg/min. Pt restless rate increased to 40mcg/kg/min and documented in MAR
[2021-08-05 08:41] LABS: Troponin I 0.243 ng/mL (0.000-0.034)
--- NOTE | 2021-08-05 09:14 | WPDCNINT ---
Assessment and Plan Assessment and plan (1) Acute respiratory failure: Qualifiers: Respiratory failure complication: unspecified whether with hypoxia or hypercapnia Qualified Code(s): J96.00 - Acute respiratory failure, unspecified whether with hypoxia or hypercapnia Code(s): J96.00 - Acute respiratory failure, unspecified whether with hypoxia or hypercapnia Status: Acute Assessment and Plan: Acute shortness of breath/respiratory failure requiring intubation on the field by EMS as O2 sats was significantly low -patient was intubated on 08/05/2021 -currently on CMV mode of ventilation, peep of 5 and 65% FiO2, will wean FiO2 to maintain O2 sats greater than 92% -continue ceftriaxone and azithromycin -will require dialysis for possible pulmonary edema on chest x-ray -continue bronchodilators -sedated with propofol infusion, maintain RASS of 0 to -2 (2) Fluid overload: Qualifiers: Hypervolemia type: unspecified Qualified Code(s): E87.70 - Fluid overload, unspecified Code(s): E87.70 - Fluid overload, unspecified Status: Acute Assessment and Plan: Fluid overload as seen on chest x-ray, appreciate nephrology following the patient, -will discuss with Nephrology regarding dialysis today (3) Pneumonia: Qualifiers: Laterality: unspecified laterality Lung location: unspecified part of lung Pneumonia type: due to unspecified organism Qualified Code(s): J18.9 - Pneumonia, unspecified organism Code(s): J18.9 - Pneumonia, unspecified organism Status: Acute Assessment and Plan: Chest x-ray shows bilateral infiltrates likely due to pneumonia versus edema -patient is on ceftriaxone and azithromycin -continue bronchodilators -on mechanical ventilation (4) Coronary artery disease: Code(s): I25.10 - Atherosclerotic heart disease of [place] coronary artery without angina pectoris Status: Acute Assessment and Plan: 04/29/2021 nuclear medicine Lexiscan stress with perfusion 1. Small area of mild infarct involving apical to mid inferior wall of left ventricle. 2. Large area of mild infarct involving apical to basal anterior and mid to basal anterolateral segments of left ventricle. 3. Left ventricular ejection fraction measuring 47%. (5) End-stage renal disease on hemodialysis: Code(s): N18.6 - End stage renal disease; Z99.2 - Dependence on renal dialysis Status: Chronic Assessment and Plan: Patient has a history of end-stage renal disease on hemodialysis, as a AV fistula on the left upper extremity -appreciate Nephrology following the patient -dialysis per Nephrology (6) DM2 (diabetes mellitus, type 2): Code(s): E11.9 - Type 2 diabetes mellitus without complications Status: Chronic Assessment and Plan: Will add Accu-Cheks and sliding scale insulin (7) Anemia of chronic disease: Code(s): D63.8 - Anemia in other chronic diseases classified elsewhere Status: Chronic Assessment and Plan: Anemia of chronic disease, currently hemoglobin stable, will continue to monitor closely (8) CHF (congestive heart failure): Qualifiers: Heart failure chronicity: unspecified Heart failure type: unspecified Qualified Code(s): I50.9 - Heart failure, unspecified Code(s): I50.9 - Heart failure, unspecified Status: Chronic Assessment and Plan: Obtain echocardiogram as we do not have 1 in the system at this time. (9) Elevated troponin: Code(s): R77.8 - Other specified abnormalities of plasma proteins Status: Acute Assessment and Plan: Elevated troponin but have plateaued -troponins are less than 1 never before -could be related to end-stage renal disease on dialysis -patient has a known coronary artery disease -EKG did not show any ST elevations (10) DVT prophylaxis: Code(s): Z29.9 - Encounter for prophylactic measures, unspecified Status:
[2021-08-05 11:31] LABS: Troponin I 0.294 ng/mL (0.000-0.034)
[2021-08-05 12:39] LABS: Glucose Point of Care 161 mg/dl (65-105)
[2021-08-05] MEDS: PROPOFOL IV EMULSION 100 ML 20.21 MG IV CONT (13:04)
[2021-08-05] MEDS: HEPARIN SODIUM 5,000 UNITS/ML VIAL 5000 UNITS SUB-Q ×2 (13:06→21:06)
--- NOTE | 2021-08-05 14:20 | PM.IMHP ---
H&P: HPI History of Present Illness Date/Time: 08/05/21 14:20 Chief Complaint: SOB Narrative: 70 year old male with a history of end-stage renal disease on dialysis, coronary artery disease with stent placement 3 years ago on dual anti platelet therapy, type 2 diabetes, hypertension, and anxiety who presented to [place] ED was transferred here for higher level of care and dialysis. Pt had life alert button on and pressed it because he felt sob. Pt presented to [place] few days ago with similar complaints and again yesterday. Pt was transferee from [place] ED to here last night. Pt lives alone in [place], his son lives in [facility]- 45 minutes away. Pt has been having problems with sob more recently started on oxygen and is waiting for CPAP machine. Pt is a heavy smoker of 2 packs every day. Pt goes to dialysis regularly, has transportation. Pt has history of CHF/ HTN/ CAD/ DM and ESRD. Pt had heart cath with stent 3 years ago recent, pt had recent echo showing - EF 71% with mild LVH. Mod , mild aortic regurgitation, mild mitral regurg. Pt is presently intubated in icu on ventilator. Pt awaiting dialysis in the room. Pt admitted for acute on chronic respiratory failure and fluid overload Pt seen already by ICU MD AND SLEEVE FIXER. Pt seen @1130 am by me. Discussed case with pts son on the phone. Review of Systems Review of Systems: ROS unobtainable: Yes unobtainable due to endotracheal tube PMFSH Past Medical History Medical History Anemia of chronic disease AV fistula CHF (congestive heart failure) DM2 (diabetes mellitus, type 2) End-stage renal disease on hemodialysis Generalized anxiety disorder Hypertension Renal osteodystrophy Suspected sleep apnea Tobacco abuse Surgical History Surgical History Cataract extraction status H/O heart artery stent History of tonsillectomy History of total left hip arthroplasty Hx of cholecystectomy Family History Family History Sibling 2019 novel coronavirus-infected pneumonia (NCIP) Mother Heart disease congestive heart failure Father Heart disease Social History Social History Social History: Patient smokes 2 packs per day but does not drink alcohol. He lives at home alone. He would like to be a full code. If he was unable to make decisions for himself he would like his son William Adams to make decisions for him. 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 Smoking packs per day: 1.5 Smoking cigarettes per day: 30.0 Years smoked: 57 Smoking pack-years: 85.50 Smoking status: Current every day smoker Tobacco type: cigarettes Second hand tobacco smoke exposure: Yes Alcohol intake: never Substance use: never Substance use type: does not use Spiritual care concerns: No Meds Home Medications and Allergies Home Medications Medication Instructions Recorded Confirmed Type aspirin 81 mg PO DAILY 04/23/21 08/05/21 History buspirone 30 mg PO BID 04/23/21 08/05/21 History cholecalciferol (vitamin D3) 50 mcg PO EVERY OTHER DAY 04/23/21 08/05/21 History [Vitamin D3] cholecalciferol (vitamin D3) 100 mcg PO EVERY OTHER DAY 04/23/21 08/05/21 History [Vitamin D3] clonidine HCl 0.1 mg PO TID 04/23/21 08/05/21 History clopidogrel 75 mg PO DAILY 04/23/21 08/05/21 History docusate sodium 100 mg PO DAILY 04/23/21 08/05/21 History finasteride 5 mg PO HS 04/23/21 08/05/21 History furosemide 80 mg PO DAILY 04/23/21 08/05/21 History imipramine HCl 25 mg PO HS 04/23/21 08/05/21 History isosorbide mononitrate 30 mg PO DAILY 04/23/21 08/05/21 History nicotine 1 patch TRANSDERMAL DAILY 04/23/21 08/05/21 History omeprazole 20 mg PO BID 04/23/21 08/05/21 History pregabalin 100 mg PO HS
[2021-08-05] MEDS: PROPOFOL IV EMULSION 100 ML 25.26 MG IV CONT (15:55)
[2021-08-05] MEDS: SODIUM CHLORIDE 0.9% IV 1,000 ML 999 ML IV CONT (16:04)
[2021-08-05 17:11] LABS: Glucose Point of Care 114 mg/dl (65-105)
[2021-08-05] MEDS: LOSARTAN POTASSIUM 50 MG TABLET PO (18:07)
[2021-08-05] MEDS: NICOTINE (*PBKC) 21 MG PATCH 1 PATCH TRANSDERM (18:07)
[2021-08-05] MEDS: cloNIDine HCL 0.1 MG TABLET PO ×2 (18:07→21:06)
[2021-08-05] MEDS: MIDAZOLAM 100MG/NS 100ML(*CRX) 100 MG/100 ML BAG IV CONT (18:08)
[2021-08-05] MEDS: PROPOFOL IV EMULSION 100 ML 15.16 MG IV CONT (20:09)
[2021-08-05] MEDS: ALBUTEROL SULFATE NEB 2.5 MG/0.5 ML INH 5 MG INHALATION (20:28)
[2021-08-05] MEDS: IPRATROPIUM BR 0.02% INH SOLN 0.5 MG/2.5 ML VIAL INHALATION (20:28)
[2021-08-05] MEDS: amLODIPine BESYLATE 5 MG TABLET PO (21:06)
[2021-08-05 23:56] LABS: Glucose Point of Care 118 mg/dl (65-105)
[2021-08-06] VITALS (35 sets, daily range): BP systolic 93–139; BP diastolic 32–41; PULSE 56–78; RESP 1–28; TEMP 36.3–37.1; O2SAT 96–100
[2021-08-06] MEDS: IPRATROPIUM BR 0.02% INH SOLN 0.5 MG/2.5 ML VIAL INHALATION ×4 (02:18→20:44)
[2021-08-06] MEDS: ALBUTEROL SULFATE NEB 2.5 MG/0.5 ML INH 5 MG INHALATION ×4 (02:18→20:44)
[2021-08-06] MEDS: PROPOFOL IV EMULSION 100 ML 15.16 MG IV CONT ×2 (02:31→08:37)
[2021-08-06 05:00] LABS: Base Excess ABG 4.4 mEq/l (+/-2.0); Carboxyhemoglobin 0.3 % THb (0-2.0); Fractional Inspired Oxygen 25 %; HCO3 ABG 28.6 mEq/l (22.0-26.0); Methemoglobin ABG 0.3 %THb (0-1.5); Oxygen Content ABG 13.9 %vol (16.0-22.0); Oxygen Saturation ABG 96.9 % (95.0-100.0); Oxyhemoglobin 94.9 % THb (90.0-100.0); PCO2 ABG 41.2 mmHg (35.0-45.0); PO2 ABG 85.3 mmHg (80.0-100.0); PO2 FiO2 Ratio Arterial Blood 3.41 %; Reduced Hemoglobin 4.5 %THb (0-5.0); Total Hemoglobin 10.3 g/dL (12.0-18.0)
[2021-08-06 05:02] LABS: Device VENTILATOR; Modified Allen's Test Pass; Site Drawn RIGHT RADIAL
[2021-08-06 05:03] LABS: Arterial Blood Gas PEEP 5 cmH2O; Arterial Blood Gas Tidal Volume 450 ml; Arterial Blood Gas Vent Mode CMV; Arterial Blood Gas Ventilator rate 15 /MIN
[2021-08-06] MEDS: HEPARIN SODIUM 5,000 UNITS/ML VIAL 5000 UNITS SUB-Q ×3 (05:11→21:28)
[2021-08-06 05:18] LABS: Basophils Percent Auto 0.1 % (0.2-1.2); Eosinophils Percent Auto 0.4 % (0-4.4); Hemoglobin 10.1 g/dL (14.0-18.0); Immature Granulocyte Absolute 0.06 K/mm3 (0.00-0.031); Immature Granulocyte Percent A 0.7 % (0-0.5); Lymphocytes Absolute Auto 0.81 K/mm3 (0.9-3.2); Mean Corpuscular HGB Conc 31.6 g/dl (32-36); Mean Corpuscular Volume 85.6 fl (80-100); Mean Platelet Volume 11.5 fl (7.4-10.4); Monocytes Absolute Auto 0.4 K/mm3 (0.1-0.6); Monocytes Percent Auto 5.4 % (2.6-8.5); Neutrophils Absolute Auto 6.8 K/mm3 (1.3-6.7); Neutrophils Percent Auto 83.4 % (45.5-73.1); Platelet Count Result 178 k/mm3 (150-375); Red Blood Count 3.74 M/mm3 (4.6-6.20); Red Cell Distribution Width 16.8 % (11.5-14.5); White Blood Count 8.1 K/mm3 (4.5-10.0)
[2021-08-06 05:33] LABS: Lactic Acid Reflex 1.1 mmol/L (0.7-2.1)
[2021-08-06 05:42] LABS: Alanine Aminotransferase 16 U/L (4-50); Albumin Level 3.9 g/dL (3.5-5.1); Alkaline Phosphatase 164 U/L (38-126); Anion Gap 10 mmol/L (8-16); Aspartate Amino Transferase 21 U/L (17-59); Bilirubin,Total 0.6 mg/dL (0.2-1.3); Blood Urea Nitrogen 37 mg/dL (9-20); Calcium 8.7 mg/dL (8.4-10.2); Carbon Dioxide 30 mmol/L (22-30); Chloride 96 mmol/L (98-107); Estimated CRCL calculation 13 ml/min; Estimated Glomerular Filt Rate 11; Glucose 133 mg/dL (65-110); Magnesium 2.5 mg/dL (1.6-2.3); Phosphorus 6.9 mg/dL (2.5-4.5); Potassium 4.5 mmol/L (3.4-5.0); Sodium 136 mmol/L (137-145)
[2021-08-06] MEDS: PANTOPRAZOLE SODIUM IV 40 MG VIAL IV PUSH (08:41)
[2021-08-06] MEDS: FUROSEMIDE 80 MG TABLET PO (08:42)
[2021-08-06] MEDS: NICOTINE (*PBKC) 21 MG PATCH 1 PATCH TRANSDERM (08:42)
[2021-08-06] MEDS: ISOSORBIDE MONONITRATE 30 MG TAB.ER.24H PO (08:42)
[2021-08-06] MEDS: LOSARTAN POTASSIUM 50 MG TABLET PO (08:42)
[2021-08-06] MEDS: amLODIPine BESYLATE 5 MG TABLET PO ×2 (08:42→21:28)
--- NOTE | 2021-08-06 11:30 | PCFNICU ---
ICU Rounding Note: Pt current nutrition is Nepro at 30 ml/hr over 22 hours. Last recorded weight is 79.6 kg, down from 83.5 kg on admit. Bowel Motility:No BM reported. Labs Reviewed:PO4 6.9,BUN 37, Cr 5.1,Na 136, Hct 32.0,Hgb 10.1 Meds Noted:Versed, Propofol at 20 kkjb=120 kcals. Skin: WNL Additional Notes: Patient remains on tube feedings of Nepro at 30 ml/hr over 22 hours and tolerating. Current tube feeding is providing patient with 1188 kcals/53 gm protein/480 ml water. Propofol titration decreased from 40 to 20 mics. Just spoke with nursing propofol just increased to 30 mics. Plan to discontinue propofol by end of day and possibly extubate. We will continue current tube feeding rate at this time. Free water flush 30 ml q 4 hours. 08/05 Dialysis Treatment. Following daily in ICU rounds. Will monitor every Wednesday and Wednesday.
[2021-08-06 12:09] LABS: Glucose Point of Care 95 mg/dl (65-105)
--- NOTE | 2021-08-06 12:16 | PM.PNNEP ---
Progress Note: A&P Assessment and Plan (1) End stage renal disease: Code(s): N18.6 - End stage renal disease Status: Chronic Assessment and Plan: The patient has end-stage renal disease. He dialyzes Wednesdays and Fridays. He had a treatment yesterday. 3.5L was removed. His oxygenation status is better now. Will do another treatment tomorrow. (2) Fluid overload: Qualifiers: Hypervolemia type: unspecified Qualified Code(s): E87.70 - Fluid overload, unspecified Code(s): E87.70 - Fluid overload, unspecified Status: Acute Assessment and Plan: This seems improved. His FiO2 is down to 25% (3) Elevated troponin: Code(s): R77.8 - Other specified abnormalities of plasma proteins Status: Acute Assessment and Plan: Troponins are a little bit elevated. However this is actually better than it has ever been at this hospital. He did have the stress test done on April 28 and it showed 2 infarcts but nothing reversible. (4) Suspected sleep apnea: Code(s): R29.818 - Other symptoms and signs involving the nervous system Status: Acute Assessment and Plan: The patient does not use a CPAP machine. (5) Tobacco abuse: Code(s): Z72.0 - Tobacco use Status: Chronic Assessment and Plan: The patient continues to smoke (6) Hypertension: Code(s): I10 - Essential (primary) hypertension Status: Chronic Assessment and Plan: Blood pressure is under good control (7) Anemia of chronic disease: Code(s): D63.8 - Anemia in other chronic diseases classified elsewhere Status: Chronic Assessment and Plan: Hemoglobin is 11.1. Will hold off on Epogen (8) Renal osteodystrophy: Code(s): N25.0 - Renal osteodystrophy Status: Acute Assessment and Plan: Phosphorus levels high at 6.9. When he starts eating again we can add a binder. (9) DM2 (diabetes mellitus, type 2): Code(s): E11.9 - Type 2 diabetes mellitus without complications Status: Chronic Assessment and Plan: On Accu-Cheks plus sliding scale insulin. Management per hospitalist. Subjective Date/time seen: 08/06/21 12:16 Interval history: Patient is sedated. On the ventilator. He cannot give a history or review of systems because of his medical condition. Exam Narrative: WDWN in NAD on the ventilator. skin no rash head ncat lungs course cor reg no rub abd BS+ nontender and soft ext no edema. Objective Data Vital Signs Vital Signs: Vital Signs - 24 hr 08/05/21 12:26 08/05/21 13:04 08/05/21 13:20 Temperature 36.8 C Pulse Rate 72 72 69 Respiratory Rate 17 17 14 Blood Pressure 147/48 H Pulse Oximetry 98 08/05/21 13:35 08/05/21 13:45 08/05/21 13:46 Temperature 36.6 C Pulse Rate 67 70 104 H Respiratory Rate 19 Blood Pressure 149/48 H 119/99 H 112/35 L Pulse Oximetry 95 08/05/21 14:00 08/05/21 14:04 08/05/21 14:15 Temperature 36.8 C Pulse Rate 67 68 68 Respiratory Rate 15 Blood Pressure 125/44 L 125/44 L Pulse Oximetry 99 98 08/05/21 14:30 08/05/21 14:45 08/05/21 15:00 Temperature Pulse Rate 66 65 70 Respiratory Rate Blood Pressure 116/40 L 110/40 L 133/40 L Pulse Oximetry 08/05/21 15:15 08/05/21 15:30 08/05/21 15:45 Temperature Pulse Rate 74 77 80 Respiratory Rate Blood Pressure 151/47 H 131/113 H 159/57 H Pulse Oximetry 08/05/21 16:00 08/05/21 16:20 08/05/21 16:36 Temperature 36.9 C Pulse Rate 82 80 79 Respiratory Rate 26 H Blood Pressure 156/103 H 154/137 H 146/48 H Pulse Oximetry 100 08/05/21 16:50 08/05/21 17:52 08/05/21 18:00 Temperature 37.0 C 37.3 C Pulse Rate 84 80 74 Respiratory Rate 17 15 Blood Pressure 128/94 H 122/78 Pulse Oximetry 100 100 99 08/05/21 18:08 08/05/21 18:58 08/05/21 20:00 Temperature 37.3 C Pulse Rate 79 61 59 L Respiratory Rate 20 15 15 Blood Pre
--- NOTE | 2021-08-06 12:40 | WPDINTPN ---
Progress Note: A&P Assessment and Plan (1) Acute respiratory failure: Qualifiers: Respiratory failure complication: unspecified whether with hypoxia or hypercapnia Qualified Code(s): J96.00 - Acute respiratory failure, unspecified whether with hypoxia or hypercapnia Code(s): J96.00 - Acute respiratory failure, unspecified whether with hypoxia or hypercapnia Status: Acute Assessment and Plan: Acute shortness of breath/respiratory failure requiring intubation on the field by EMS as O2 sats was significantly low -patient was intubated on 08/05/2021 -currently on CMV mode of ventilation, peep of 5 and 25% -continue ceftriaxone and azithromycin -was dialyzed on 08/05/2021 with removal of 3500 mL, chest x-ray continues to show diffuse bilateral pneumonia edema -continue bronchodilators -sedated with propofol infusion, maintain RASS of 0 to -2 -patient will require dialysis (2) Fluid overload: Qualifiers: Hypervolemia type: unspecified Qualified Code(s): E87.70 - Fluid overload, unspecified Code(s): E87.70 - Fluid overload, unspecified Status: Acute Assessment and Plan: Fluid overload as seen on chest x-ray, appreciate nephrology following the patient, -dialysis per Nephrology, dialysis will not be today because of lack of dialysis staff, patient will get dialyzed on 08/07/2021 in the morning (3) Pneumonia: Qualifiers: Laterality: unspecified laterality Lung location: unspecified part of lung Pneumonia type: due to unspecified organism Qualified Code(s): J18.9 - Pneumonia, unspecified organism Code(s): J18.9 - Pneumonia, unspecified organism Status: Acute Assessment and Plan: Chest x-ray shows bilateral infiltrates likely due to pneumonia versus edema -patient is on ceftriaxone and azithromycin -continue bronchodilators -on mechanical ventilation (4) Coronary artery disease: Code(s): I25.10 - Atherosclerotic heart disease of [place] coronary artery without angina pectoris Status: Acute Assessment and Plan: 04/29/2021 nuclear medicine Lexiscan stress with perfusion 1. Small area of mild infarct involving apical to mid inferior wall of left ventricle. 2. Large area of mild infarct involving apical to basal anterior and mid to basal anterolateral segments of left ventricle. 3. Left ventricular ejection fraction measuring 47%. (5) End-stage renal disease on hemodialysis: Code(s): N18.6 - End stage renal disease; Z99.2 - Dependence on renal dialysis Status: Chronic Assessment and Plan: Patient has a history of end-stage renal disease on hemodialysis, as a AV fistula on the left upper extremity -appreciate Nephrology following the patient -dialysis per Nephrology (6) DM2 (diabetes mellitus, type 2): Code(s): E11.9 - Type 2 diabetes mellitus without complications Status: Chronic Assessment and Plan: Continue Accu-Cheks and sliding scale insulin (7) Anemia of chronic disease: Code(s): D63.8 - Anemia in other chronic diseases classified elsewhere Status: Chronic Assessment and Plan: Anemia of chronic disease, currently hemoglobin stable, will continue to monitor closely (8) CHF (congestive heart failure): Qualifiers: Heart failure chronicity: unspecified Heart failure type: unspecified Qualified Code(s): I50.9 - Heart failure, unspecified Code(s): I50.9 - Heart failure, unspecified Status: Chronic Assessment and Plan: Obtain echocardiogram as we do not have 1 in the system at this time. (9) Elevated troponin: Code(s): R77.8 - Other specified abnormalities of plasma proteins Status: Acute Assessment and Plan: Elevated troponin but have plateaued -troponins are less than 1 never before -could be related to end-stage renal disease on dialysis -patient has a known coronary artery disease -EKG did not show any ST elevations
[2021-08-06] MEDS: cloNIDine HCL 0.1 MG TABLET PO ×2 (14:18→21:28)
[2021-08-06] MEDS: PROPOFOL IV EMULSION 100 ML 20.21 MG IV CONT ×2 (14:22→19:41)
[2021-08-06 18:08] LABS: Glucose Point of Care 105 mg/dl (65-105)
[2021-08-06 23:41] LABS: Glucose Point of Care 113 mg/dl (65-105)
[2021-08-07] VITALS (46 sets, daily range): BP systolic 90–146; BP diastolic 35–56; PULSE 63–94; RESP 12–21; TEMP 37–37.9; O2SAT 92–97
[2021-08-07] MEDS: MIDAZOLAM 100MG/NS 100ML(*CRX) 100 MG/100 ML BAG IV CONT (00:23)
[2021-08-07] MEDS: PROPOFOL IV EMULSION 100 ML 20.21 MG IV CONT ×2 (01:59→06:13)
[2021-08-07] MEDS: ALBUTEROL SULFATE NEB 2.5 MG/0.5 ML INH 5 MG INHALATION ×3 (02:30→14:53)
[2021-08-07] MEDS: IPRATROPIUM BR 0.02% INH SOLN 0.5 MG/2.5 ML VIAL INHALATION ×3 (02:30→14:53)
[2021-08-07 04:31] LABS: Alveolar/Arterial O2 Gradient 46.1 mmHg; Base Excess ABG 4.1 mEq/l (+/-2.0); Carboxyhemoglobin 0.4 % THb (0-2.0); Fractional Inspired Oxygen 25 %; HCO3 ABG 29.5 mEq/l (22.0-26.0); Methemoglobin ABG 0.3 %THb (0-1.5); Oxygen Content ABG 13.9 %vol (16.0-22.0); Oxyhemoglobin 92.4 % THb (90.0-100.0); PO2 ABG 75.2 mmHg (80.0-100.0); PO2 FiO2 Ratio Arterial Blood 3.01 %; Reduced Hemoglobin 6.9 %THb (0-5.0); Total Hemoglobin 10.6 g/dL (12.0-18.0); pH ABG 7.406 (7.350-7.450)
[2021-08-07 04:32] LABS: Arterial Blood Gas PEEP 5 cmH2O; Arterial Blood Gas Tidal Volume 450 ml; Arterial Blood Gas Vent Mode CMV; Arterial Blood Gas Ventilator rate 15 /MIN; Device VENTILATOR; Modified Allen's Test Pass; Site Drawn RIGHT RADIAL
[2021-08-07 05:03] LABS: Basophils Percent Auto 0.5 % (0.2-1.2); Eosinophils Absolute Auto 0.1 K/mm3 (0-0.3); Eosinophils Percent Auto 1.6 % (0-4.4); Hemoglobin 10.3 g/dL (14.0-18.0); Immature Granulocyte Absolute 0.09 K/mm3 (0.00-0.031); Immature Granulocyte Percent A 1.1 % (0-0.5); Immature Platelet Fraction Pct 5.4 % (0.9-11.2); Mean Corpuscular HGB Conc 34.3 g/dl (32-36); Mean Corpuscular Hemoglobin 29.9 pg (26-34); Mean Corpuscular Volume 87.2 fl (80-100); Mean Platelet Volume 11.7 fl (7.4-10.4); Monocytes Absolute Auto 0.5 K/mm3 (0.1-0.6); Monocytes Percent Auto 5.8 % (2.6-8.5); Neutrophils Absolute Auto 6.6 K/mm3 (1.3-6.7); Platelet Count Result 185 k/mm3 (150-375); Red Blood Count 3.44 M/mm3 (4.6-6.20); Red Cell Distribution Width 17.1 % (11.5-14.5); White Blood Count 8.3 K/mm3 (4.5-10.0)
[2021-08-07] MEDS: cloNIDine HCL 0.1 MG TABLET PO ×2 (05:31→22:26)
[2021-08-07] MEDS: HEPARIN SODIUM 5,000 UNITS/ML VIAL 5000 UNITS SUB-Q ×3 (05:31→22:29)
[2021-08-07] MEDS: NICOTINE (*PBKC) 21 MG PATCH 1 PATCH TRANSDERM (08:19)
[2021-08-07] MEDS: PANTOPRAZOLE SODIUM IV 40 MG VIAL IV PUSH (08:19)
[2021-08-07] MEDS: FUROSEMIDE 80 MG TABLET PO (09:18)
[2021-08-07 09:44] LABS: Alanine Aminotransferase 13 U/L (4-50); Albumin Level 3.1 g/dL (3.5-5.1); Alkaline Phosphatase 168 U/L (38-126); Anion Gap 12 mmol/L (8-16); Aspartate Amino Transferase 18 U/L (17-59); Bilirubin,Total 0.3 mg/dL (0.2-1.3); Blood Urea Nitrogen 54 mg/dL (9-20); Calcium 8.1 mg/dL (8.4-10.2); Carbon Dioxide 28 mmol/L (22-30); Chloride 92 mmol/L (98-107); Estimated CRCL calculation 9 ml/min; Estimated Glomerular Filt Rate 8; Glucose 108 mg/dL (65-110); Magnesium 2.5 mg/dL (1.6-2.3); Potassium 4.9 mmol/L (3.4-5.0); Sodium 132 mmol/L (137-145)
--- NOTE | 2021-08-07 10:41 | PM.PNNEP ---
Progress Note: A&P Assessment and Plan (1) End stage renal disease: Code(s): N18.6 - End stage renal disease Status: Chronic Assessment and Plan: The patient has end-stage renal disease. He dialyzes Wednesdays and Fridays. He had a treatment Wednesday. Will get another 1 done today. His oxygenation status is better now. Discussed with Dr Armendariz (2) Fluid overload: Qualifiers: Hypervolemia type: unspecified Qualified Code(s): E87.70 - Fluid overload, unspecified Code(s): E87.70 - Fluid overload, unspecified Status: Acute Assessment and Plan: This seems improved. His FiO2 is down to 25% Remove more fluid today (3) Elevated troponin: Code(s): R77.8 - Other specified abnormalities of plasma proteins Status: Acute Assessment and Plan: Troponins are a little bit elevated. However this is actually better than it has ever been at this hospital. He did have the stress test done on April 28 and it showed 2 infarcts but nothing reversible. (4) Suspected sleep apnea: Code(s): R29.818 - Other symptoms and signs involving the nervous system Status: Acute Assessment and Plan: The patient does not use a CPAP machine. (5) Tobacco abuse: Code(s): Z72.0 - Tobacco use Status: Chronic Assessment and Plan: The patient continued to smoke (6) Hypertension: Code(s): I10 - Essential (primary) hypertension Status: Chronic Assessment and Plan: Blood pressure is under good control (7) Anemia of chronic disease: Code(s): D63.8 - Anemia in other chronic diseases classified elsewhere Status: Chronic Assessment and Plan: Hemoglobin is down to 10.3. EPO ordered. (8) Renal osteodystrophy: Code(s): N25.0 - Renal osteodystrophy Status: Acute Assessment and Plan: Phosphorus levels higher at 8. He is on Nepro which has very little phosphorus. Will give sevelamer along with the Nepro. (9) DM2 (diabetes mellitus, type 2): Code(s): E11.9 - Type 2 diabetes mellitus without complications Status: Chronic Assessment and Plan: On Accu-Cheks plus sliding scale insulin. Management per hospitalist. Subjective Date/time seen: 08/07/21 10:41 Interval history: Patient is sedated. On the ventilator. Opens eyes and follows some commands. Exam Narrative: WDWN in NAD on the ventilator. He looks comfortable. skin no rash head ncat lungs course cor reg no rub abd BS+ nontender and soft ext no edema. Objective Data Vital Signs Vital Signs: Vital Signs - 24 hr 08/06/21 11:29 08/06/21 12:00 08/06/21 14:00 Temperature 36.5 C Pulse Rate 64 62 66 Respiratory Rate 18 1 L Blood Pressure 93/32 L 113/40 L Pulse Oximetry 100 99 99 08/06/21 15:28 08/06/21 15:31 08/06/21 15:38 Temperature Pulse Rate 67 66 68 Respiratory Rate 19 22 H Blood Pressure Pulse Oximetry 99 08/06/21 16:00 08/06/21 17:43 08/06/21 18:00 Temperature 36.8 C Pulse Rate 62 69 70 Respiratory Rate 13 28 H Blood Pressure 109/34 L 116/39 L Pulse Oximetry 99 98 99 08/06/21 19:19 08/06/21 19:41 08/06/21 20:00 Temperature 36.8 C Pulse Rate 70 70 71 Respiratory Rate 28 H 28 H 16 Blood Pressure 121/38 L Pulse Oximetry 98 08/06/21 20:46 08/06/21 20:49 08/06/21 20:59 Temperature Pulse Rate 74 74 71 Respiratory Rate 17 16 Blood Pressure Pulse Oximetry 98 08/06/21 22:00 08/06/21 23:45 08/07/21 00:00 Temperature 37.3 C Pulse Rate 76 78 78 Respiratory Rate 18 18 Blood Pressure 139/40 L 138/43 L Pulse Oximetry 97 96 96 08/07/21 00:23 08/07/21 00:38 08/07/21 01:59 Temperature Pulse Rate 78 78 78 Respiratory Rate 18 18 18 Blood Pressure Pulse Oximetry 08/07/21 02:00 08/07/21 02:32 08/07/21 02:34 Temperature Pulse Rate 67 63 63 Respiratory Rate 15 15 Blood Pressure 103/56 L Pulse
[2021-08-07 11:15] LABS: Creatine Kinase 35 U/L (55-170)
--- NOTE | 2021-08-07 11:15 | PCFNICU ---
ICU Rounding Note: Pt current nutrition is Nepro at 30 ml/hr over 22 hours. Last recorded weight is 81.9 kg, stable Bowel Motility: No BM reported. Labs Reviewed:Hct 30.0,Hgb 10.3 Meds Noted:Cozaar, Protonix, Lasix, Rocephin, Atrovent,Heparin. Skin: WNL Additional Notes: Patient remains on mechanical vent and tube feedings of Nepro at 30 ml/hr over 22 hours. Plans for Dialysis today. Possible extubation. If patient remains on mechanical vent recommend increasing tube feedings to 40 ml/hr. Following daily in ICU rounds. Will monitor every Wednesday and Wednesday.
[2021-08-07] MEDS: PROPOFOL IV EMULSION 100 ML 15.16 MG IV CONT (11:34)
[2021-08-07] MEDS: SEVELAMER CARBONATE 800 MG TABLET FEED TUBE ×2 (11:35→17:21)
[2021-08-07 12:00] LABS: Glucose Point of Care 94 mg/dl (65-105)
--- NOTE | 2021-08-07 12:04 | P.PNINT_ITS ---
Progress Note: A&P Assessment and Plan (1) Acute respiratory failure: Qualifiers: Respiratory failure complication: unspecified whether with hypoxia or hypercapnia Qualified Code(s): J96.00 - Acute respiratory failure, unspecified whether with hypoxia or hypercapnia Code(s): J96.00 - Acute respiratory failure, unspecified whether with hypoxia or hypercapnia Status: Acute Assessment and Plan: Acute shortness of breath/respiratory failure requiring intubation on the field by EMS as O2 sats was significantly low -patient was intubated on 08/05/2021 -currently on CMV mode of ventilation, peep of 5 and 25% -continue ceftriaxone and azithromycin -was dialyzed on 08/05/2021 with removal of 3500 mL, chest x-ray continues to show diffuse bilateral pneumonia edema -continue bronchodilators -sedated with propofol infusion, maintain RASS of 0 to -2 -patient to get dialysis today (2) Fluid overload: Qualifiers: Hypervolemia type: unspecified Qualified Code(s): E87.70 - Fluid overload, unspecified Code(s): E87.70 - Fluid overload, unspecified Status: Acute Assessment and Plan: Fluid overload as seen on chest x-ray, appreciate nephrology following the patient, -dialysis per Nephrology, dialysis will not be today because of lack of dialysis staff, patient will get dialyzed on 08/07/2021 in the morning (3) Pneumonia: Qualifiers: Laterality: unspecified laterality Lung location: unspecified part of lung Pneumonia type: due to unspecified organism Qualified Code(s): J18.9 - Pneumonia, unspecified organism Code(s): J18.9 - Pneumonia, unspecified organism Status: Acute Assessment and Plan: Chest x-ray shows bilateral infiltrates likely due to pneumonia versus edema -patient is on ceftriaxone and azithromycin -continue bronchodilators -on mechanical ventilation (4) Coronary artery disease: Code(s): I25.10 - Atherosclerotic heart disease of [place] coronary artery without angina pectoris Status: Acute Assessment and Plan: 04/29/2021 nuclear medicine Lexiscan stress with perfusion 1. Small area of mild infarct involving apical to mid inferior wall of left ventricle. 2. Large area of mild infarct involving apical to basal anterior and mid to basal anterolateral segments of left ventricle. 3. Left ventricular ejection fraction measuring 47%. (5) End-stage renal disease on hemodialysis: Code(s): N18.6 - End stage renal disease; Z99.2 - Dependence on renal dialysis Status: Chronic Assessment and Plan: Patient has a history of end-stage renal disease on hemodialysis, as a AV fistula on the left upper extremity -appreciate Nephrology following the patient -dialysis per Nephrology (6) DM2 (diabetes mellitus, type 2): Code(s): E11.9 - Type 2 diabetes mellitus without complications Status: Chronic Assessment and Plan: Continue Accu-Cheks and sliding scale insulin (7) Anemia of chronic disease: Code(s): D63.8 - Anemia in other chronic diseases classified elsewhere Status: Chronic Assessment and Plan: Anemia of chronic disease, currently hemoglobin stable, will continue to monitor closely (8) CHF (congestive heart failure): Qualifiers: Heart failure chronicity: unspecified Heart failure type: unspecified Qualified Code(s): I50.9 - Heart failure, unspecified Code(s): I50.9 - Heart failure, unspecified Status: Chronic Assessment and Plan: Obtain echocardiogram as we do not have 1 in the system at this time. (9) Elevate
[2021-08-07 17:07] LABS: Glucose Point of Care 93 mg/dl (65-105)
[2021-08-07] MEDS: PROPOFOL IV EMULSION 100 ML 12.63 MG IV CONT (17:19)
[2021-08-07] MEDS: amLODIPine BESYLATE 5 MG TABLET PO (22:26)
[2021-08-08] VITALS (55 sets, daily range): BP systolic 90–160; BP diastolic 29–67; PULSE 67–91; RESP 13–26; TEMP 36–38.4; O2SAT 90–100
[2021-08-08] MEDS: PROPOFOL IV EMULSION 100 ML 12.63 MG IV CONT (01:25)
[2021-08-08] MEDS: SEVELAMER CARBONATE 800 MG TABLET FEED TUBE ×2 (03:00→07:58)
[2021-08-08 04:32] LABS: Alveolar/Arterial O2 Gradient 78.8 mmHg; Base Excess ABG 2.4 mEq/l (+/-2.0); Carboxyhemoglobin 0.2 % THb (0-2.0); Fractional Inspired Oxygen 30 %; HCO3 ABG 25.7 mEq/l (22.0-26.0); Methemoglobin ABG 0.3 %THb (0-1.5); Oxygen Content ABG 15.5 %vol (16.0-22.0); Oxygen Saturation ABG 97.7 % (95.0-100.0); Oxyhemoglobin 95.8 % THb (90.0-100.0); PO2 FiO2 Ratio Arterial Blood 3.13 %; Reduced Hemoglobin 3.7 %THb (0-5.0); Total Hemoglobin 11.4 g/dL (12.0-18.0); pH ABG 7.483 (7.350-7.450)
[2021-08-08 04:33] LABS: Device VENTILATOR; Modified Allen's Test Pass; Site Drawn RIGHT RADIAL
[2021-08-08 04:34] LABS: Arterial Blood Gas PEEP 5 cmH2O; Arterial Blood Gas Tidal Volume 450 ml; Arterial Blood Gas Vent Mode CMV; Arterial Blood Gas Ventilator rate 15 /MIN
[2021-08-08 04:48] LABS: Basophils Percent Auto 0.3 % (0.2-1.2); Eosinophils Absolute Auto 0.1 K/mm3 (0-0.3); Eosinophils Percent Auto 0.7 % (0-4.4); Hematocrit 34.6 % (42.0-52.0); Immature Granulocyte Absolute 0.13 K/mm3 (0.00-0.031); Immature Granulocyte Percent A 1.1 % (0-0.5); Lymphocytes Absolute Auto 0.73 K/mm3 (0.9-3.2); Lymphocytes Percent Auto 6.2 % (18.3-44.2); Mean Corpuscular HGB Conc 31.8 g/dl (32-36); Mean Corpuscular Hemoglobin 27.3 pg (26-34); Mean Corpuscular Volume 85.9 fl (80-100); Mean Platelet Volume 11.3 fl (7.4-10.4); Monocytes Absolute Auto 0.5 K/mm3 (0.1-0.6); Monocytes Percent Auto 4.1 % (2.6-8.5); Neutrophils Absolute Auto 10.3 K/mm3 (1.3-6.7); Neutrophils Percent Auto 87.6 % (45.5-73.1); Platelet Count Result 231 k/mm3 (150-375); Red Blood Count 4.03 M/mm3 (4.6-6.20); White Blood Count 11.7 K/mm3 (4.5-10.0)
[2021-08-08 05:00] LABS: Alanine Aminotransferase 16 U/L (4-50); Alkaline Phosphatase 210 U/L (38-126); Anion Gap 14 mmol/L (8-16); Aspartate Amino Transferase 21 U/L (17-59); Bilirubin,Total 0.6 mg/dL (0.2-1.3); Blood Urea Nitrogen 28 mg/dL (9-20); Calcium 9.3 mg/dL (8.4-10.2); Carbon Dioxide 30 mmol/L (22-30); Chloride 93 mmol/L (98-107); Estimated CRCL calculation 15 ml/min; Estimated Glomerular Filt Rate 14; Glucose 108 mg/dL (65-110); Magnesium 2.4 mg/dL (1.6-2.3); Phosphorus 5.5 mg/dL (2.5-4.5); Potassium 4.7 mmol/L (3.4-5.0); Sodium 137 mmol/L (137-145)
[2021-08-08] MEDS: amLODIPine BESYLATE 5 MG TABLET PO (07:58)
[2021-08-08] MEDS: NICOTINE (*PBKC) 21 MG PATCH 1 PATCH TRANSDERM (07:58)
[2021-08-08] MEDS: ISOSORBIDE MONONITRATE 30 MG TAB.ER.24H PO (07:58)
[2021-08-08] MEDS: LOSARTAN POTASSIUM 50 MG TABLET PO (07:58)
[2021-08-08] MEDS: cloNIDine HCL 0.1 MG TABLET PO (07:59)
[2021-08-08] MEDS: HEPARIN SODIUM 5,000 UNITS/ML VIAL 5000 UNITS SUB-Q ×3 (07:59→22:22)
[2021-08-08] MEDS: FUROSEMIDE 80 MG TABLET PO (07:59)
[2021-08-08] MEDS: PANTOPRAZOLE SODIUM IV 40 MG VIAL IV PUSH (08:00)
--- NOTE | 2021-08-08 08:01 | P.CDI_ITS ---
CDI Query Clarification Request - Reason for consult: Shortness of breath with Acute respiratory failure, pulmonary edema, pneumonia, end-stage renal disease has been documented. Please further specify acuity and cause of pulmonary edema: * Acute *Cause- fluid overload * Chronic *Cause- CHF * Acute on chronic *Cause- other * Unable to determine *Cause-unable to be determined <Keesha King RN - Last Filed: 08/08/21 08:05>
--- NOTE | 2021-08-08 08:01 | WPDCDIQUERY2 ---
CDI Query Clarification Request - Reason for consult: Shortness of breath with Acute respiratory failure, pulmonary edema, pneumonia, end-stage renal disease has been documented. Please further specify acuity and cause of pulmonary edema: Acute *Cause- fluid overload Chronic *Cause- CHF Acute on chronic *Cause- other Unable to determine *Cause-unable to be determined <Keesha King RN - Last Filed: 08/08/21 08:05>
[2021-08-08] MEDS: ALBUTEROL SULFATE NEB 2.5 MG/0.5 ML INH 5 MG INHALATION ×3 (08:11→21:02)
[2021-08-08] MEDS: IPRATROPIUM BR 0.02% INH SOLN 0.5 MG/2.5 ML VIAL INHALATION ×3 (08:12→21:02)
[2021-08-08 09:50] LABS: Alveolar/Arterial O2 Gradient 75.4 mmHg; Base Excess ABG 2.3 mEq/l (+/-2.0); Fractional Inspired Oxygen 30 %; HCO3 ABG 25.9 mEq/l (22.0-26.0); Oxygen Content ABG 15.7 %vol (16.0-22.0); Oxygen Saturation ABG 97.7 % (95.0-100.0); Oxyhemoglobin 95.6 % THb (90.0-100.0); PCO2 ABG 36.6 mmHg (35.0-45.0); PO2 ABG 95.5 mmHg (80.0-100.0); PO2 FiO2 Ratio Arterial Blood 3.18 %; Total Hemoglobin 11.6 g/dL (12.0-18.0); pH ABG 7.467 (7.350-7.450)
[2021-08-08 09:52] LABS: Arterial Blood Gas PEEP 5 cmH2O; Arterial Blood Gas Pressure Support 8 cmH2O; Arterial Blood Gas Vent Mode SPONTANEOUS; Device VENTILATOR; Modified Allen's Test Pass; Site Drawn RIGHT RADIAL
--- NOTE | 2021-08-08 09:54 | PM.PNNEP ---
Progress Note: A&P Assessment and Plan (1) End stage renal disease: Code(s): N18.6 - End stage renal disease Status: Chronic Assessment and Plan: The patient has end-stage renal disease. He dialyzes Wednesdays and Fridays. He had a treatment Wednesday and . Will get him back on schedule today. His oxygenation status is doing well. Discussed with Dr Armendariz (2) Fluid overload: Qualifiers: Hypervolemia type: unspecified Qualified Code(s): E87.70 - Fluid overload, unspecified Code(s): E87.70 - Fluid overload, unspecified Status: Acute Assessment and Plan: This seems improved. His FiO2 is down to 25% Remove more fluid today as tolerated. Plans are for extubation today. (3) Elevated troponin: Code(s): R77.8 - Other specified abnormalities of plasma proteins Status: Acute Assessment and Plan: Troponins are a little bit elevated. However this is actually better than it has ever been at this hospital. He did have the stress test done on April 28 and it showed 2 infarcts but nothing reversible. (4) Suspected sleep apnea: Code(s): R29.818 - Other symptoms and signs involving the nervous system Status: Acute Assessment and Plan: The patient does not use a CPAP machine. (5) Tobacco abuse: Code(s): Z72.0 - Tobacco use Status: Chronic Assessment and Plan: The patient continued to smoke (6) Hypertension: Code(s): I10 - Essential (primary) hypertension Status: Chronic Assessment and Plan: Blood pressure is under good control (7) Anemia of chronic disease: Code(s): D63.8 - Anemia in other chronic diseases classified elsewhere Status: Chronic Assessment and Plan: Hemoglobin is down to 10.3. EPO ordered. (8) Renal osteodystrophy: Code(s): N25.0 - Renal osteodystrophy Status: Acute Assessment and Plan: Phosphorus levels higher at 8. He is on Nepro which has very little phosphorus. Will give sevelamer along with the Nepro. (9) DM2 (diabetes mellitus, type 2): Code(s): E11.9 - Type 2 diabetes mellitus without complications Status: Chronic Assessment and Plan: On Accu-Cheks plus sliding scale insulin. Management per hospitalist. Subjective Date/time seen: 08/08/21 09:54 Interval history: Patient is sedated. On the ventilator. Opens eyes and follows some commands. He does not make eye contact very well though. Exam Narrative: WDWN in NAD on the ventilator. He looks comfortable. skin no rash head ncat lungs course bilateral cor reg no rub or gallop abd BS+ nontender and soft ext no edema. Objective Data Vital Signs Vital Signs: Vital Signs - 24 hr 08/07/21 10:00 08/07/21 10:03 08/07/21 10:05 Temperature Pulse Rate 76 76 76 Respiratory Rate 17 18 16 Blood Pressure 115/41 L Pulse Oximetry 92 08/07/21 10:09 08/07/21 10:10 08/07/21 11:24 Temperature Pulse Rate 75 74 72 Respiratory Rate 15 12 Blood Pressure Pulse Oximetry 93 08/07/21 11:33 08/07/21 11:34 08/07/21 11:37 Temperature Pulse Rate 68 69 70 Respiratory Rate 13 13 15 Blood Pressure Pulse Oximetry 95 08/07/21 12:00 08/07/21 12:02 08/07/21 12:46 Temperature 37.5 C Pulse Rate 72 70 70 Respiratory Rate 15 15 Blood Pressure 113/37 L Pulse Oximetry 95 97 08/07/21 13:59 08/07/21 14:00 08/07/21 14:53 Temperature Pulse Rate 71 71 70 Respiratory Rate 12 16 Blood Pressure 123/40 L Pulse Oximetry 95 08/07/21 14:55 08/07/21 15:00 08/07/21 15:44 Temperature Pulse Rate 71 71 77 Respiratory Rate 15 16 Blood Pressure Pulse Oximetry 95 95 08/07/21 16:00 08/07/21 17:19 08/07/21 17:20 Temperature 37.9 C H Pulse Rate 81 87 87 Respiratory Rate 15 16 Blood Pressure 145/49 H Pulse Oximetry 95 95 08/07/21 18:00 08/07/21 20:00 08/07/21 20:58 Temper
[2021-08-08 11:50] LABS: Glucose Point of Care 95 mg/dl (65-105)
--- NOTE | 2021-08-08 11:52 | PCNFU ---
Nutrition Follow-Up Complete: Inadequate Oral Intake as related to mechanical ventilation as evidenced by NPO goal: Meet estimated nutritional needs Patient is progressing towards goal. We will continue current goal. Pt current nutrition is NPO. Last recorded weight is 81.9 kg-stable Bowel Motility: No Bm reported. Labs Reviewed:Mg 2.4, GFR 14, BUN 28, Cr 4.3,Hct 34.6m, Hgb 11.0 Meds Noted:Rocephin, Renvela, Protonix, Cozaar, Lasix, Atrovent, Zithromax, Norvasc Skin: WNL Additional Notes: Patient has been extubated. NPO with NGT. Plans for Dialysis today. If diet order advances recommend Diabetic/Renal Dialysis diet. Monitoring: Will monitor every 3 days.
--- NOTE | 2021-08-08 13:20 | WPDINTPN ---
Progress Note: A&P Assessment and Plan (1) Acute respiratory failure: Qualifiers: Respiratory failure complication: unspecified whether with hypoxia or hypercapnia Qualified Code(s): J96.00 - Acute respiratory failure, unspecified whether with hypoxia or hypercapnia Code(s): J96.00 - Acute respiratory failure, unspecified whether with hypoxia or hypercapnia Status: Acute Assessment and Plan: Acute shortness of breath/respiratory failure requiring intubation on the field by EMS as O2 sats was significantly low -patient was intubated on 08/05/2021 -currently on CMV mode of ventilation, peep of 5 and 25% -continue ceftriaxone and azithromycin -was dialyzed on 08/05/2021 with removal of 3500 mL, chest x-ray continues to show diffuse bilateral pneumonia edema -continue bronchodilators -started patient on Precedex infusion, will discontinue propofol, placed patient on SBT. Was successfully extubated -patient to get dialysis today (2) Fluid overload: Qualifiers: Hypervolemia type: unspecified Qualified Code(s): E87.70 - Fluid overload, unspecified Code(s): E87.70 - Fluid overload, unspecified Status: Acute Assessment and Plan: Fluid overload as seen on chest x-ray, appreciate nephrology following the patient, likely due to chronic renal failure -volume overload improved after dialysis -dialysis again today per Nephrology (3) Pneumonia: Qualifiers: Laterality: unspecified laterality Lung location: unspecified part of lung Pneumonia type: due to unspecified organism Qualified Code(s): J18.9 - Pneumonia, unspecified organism Code(s): J18.9 - Pneumonia, unspecified organism Status: Acute Assessment and Plan: Chest x-ray shows bilateral infiltrates likely due to pneumonia versus edema -patient is on ceftriaxone and azithromycin -continue bronchodilators (4) Coronary artery disease: Code(s): I25.10 - Atherosclerotic heart disease of [place] coronary artery without angina pectoris Status: Acute Assessment and Plan: 04/29/2021 nuclear medicine Lexiscan stress with perfusion 1. Small area of mild infarct involving apical to mid inferior wall of left ventricle. 2. Large area of mild infarct involving apical to basal anterior and mid to basal anterolateral segments of left ventricle. 3. Left ventricular ejection fraction measuring 47%. (5) End-stage renal disease on hemodialysis: Code(s): N18.6 - End stage renal disease; Z99.2 - Dependence on renal dialysis Status: Chronic Assessment and Plan: Patient has a history of end-stage renal disease on hemodialysis, as a AV fistula on the left upper extremity -appreciate Nephrology following the patient -dialysis per Nephrology (6) DM2 (diabetes mellitus, type 2): Code(s): E11.9 - Type 2 diabetes mellitus without complications Status: Chronic Assessment and Plan: Continue Accu-Cheks and sliding scale insulin (7) Anemia of chronic disease: Code(s): D63.8 - Anemia in other chronic diseases classified elsewhere Status: Chronic Assessment and Plan: Anemia of chronic disease, currently hemoglobin stable, will continue to monitor closely (8) CHF (congestive heart failure): Qualifiers: Heart failure chronicity: unspecified Heart failure type: unspecified Qualified Code(s): I50.9 - Heart failure, unspecified Code(s): I50.9 - Heart failure, unspecified Status: Chronic Assessment and Plan: Echocardiogram 08/05/2021 shows EF of 60-65%, diastolic dysfunction is present, mild MR, RVSP 32 mmHg (9) Elevated troponin: Code(s): R77.8 - Other specified abnormalities of plasma proteins Status: Acute Assessment and Plan: Elevated troponin but have plateaued -troponins are less than previous admission -could be related to end-stage renal disease on dialysis -patient has a known coronary artery diseas
[2021-08-08 17:13] LABS: Glucose Point of Care 86 mg/dl (65-105)
[2021-08-08 23:19] LABS: Glucose Point of Care 75 mg/dl (65-105)
[2021-08-09] VITALS (52 sets, daily range): BP systolic 103–170; BP diastolic 34–134; PULSE 79–91; RESP 8–28; TEMP 36.3–37.3; O2SAT 20–99
[2021-08-09] MEDS: DEXTROSE 50% 25 GM/50 ML SYRINGE IV PUSH ×2 (01:36→13:20)
[2021-08-09 01:40] LABS: Glucose Point of Care 57 mg/dl (65-105)
[2021-08-09 02:01] LABS: Glucose Point of Care 144 mg/dl (65-105)
[2021-08-09] MEDS: ALBUTEROL SULFATE NEB 2.5 MG/0.5 ML INH 5 MG INHALATION ×4 (02:21→20:15)
[2021-08-09] MEDS: IPRATROPIUM BR 0.02% INH SOLN 0.5 MG/2.5 ML VIAL INHALATION ×4 (02:22→20:16)
[2021-08-09 02:42] LABS: Alveolar/Arterial O2 Gradient 33.1 mmHg; Base Excess ABG 2.2 mEq/l (+/-2.0); Carboxyhemoglobin 0.8 % THb (0-2.0); Device ROOM AIR; Fractional Inspired Oxygen 21 %; HCO3 ABG 26.6 mEq/l (22.0-26.0); Methemoglobin ABG 0.3 %THb (0-1.5); Modified Allen's Test Pass; Oxygen Content ABG 15.4 %vol (16.0-22.0); Oxygen Saturation ABG 94.2 % (95.0-100.0); Oxyhemoglobin 90.5 % THb (90.0-100.0); PCO2 ABG 40.5 mmHg (35.0-45.0); PO2 ABG 68.1 mmHg (80.0-100.0); PO2 FiO2 Ratio Arterial Blood 3.24 %; Reduced Hemoglobin 8.4 %THb (0-5.0); Site Drawn RIGHT RADIAL; Total Hemoglobin 12.1 g/dL (12.0-18.0); pH ABG 7.435 (7.350-7.450)
[2021-08-09 04:22] LABS: Basophils Absolute Auto 0.1 K/mm3 (0.0-0.1); Basophils Percent Auto 0.4 % (0.2-1.2); Eosinophils Absolute Auto 0.1 K/mm3 (0-0.3); Eosinophils Percent Auto 0.9 % (0-4.4); Hematocrit 37.9 % (42.0-52.0); Hemoglobin 11.7 g/dL (14.0-18.0); Immature Granulocyte Absolute 0.11 K/mm3 (0.00-0.031); Immature Granulocyte Percent A 0.8 % (0-0.5); Lymphocytes Percent Auto 6.5 % (18.3-44.2); Mean Corpuscular HGB Conc 30.9 g/dl (32-36); Mean Corpuscular Hemoglobin 27.2 pg (26-34); Mean Corpuscular Volume 88.1 fl (80-100); Mean Platelet Volume 11.3 fl (7.4-10.4); Monocytes Absolute Auto 0.6 K/mm3 (0.1-0.6); Monocytes Percent Auto 4.4 % (2.6-8.5); Neutrophils Absolute Auto 12.1 K/mm3 (1.3-6.7); Platelet Count Result 243 k/mm3 (150-375); Red Cell Distribution Width 16.9 % (11.5-14.5); White Blood Count 13.9 K/mm3 (4.5-10.0)
[2021-08-09 04:46] LABS: Alanine Aminotransferase 17 U/L (4-50); Albumin Level 4.3 g/dL (3.5-5.1); Alkaline Phosphatase 222 U/L (38-126); Anion Gap 17 mmol/L (8-16); Aspartate Amino Transferase 23 U/L (17-59); Bilirubin,Total 0.7 mg/dL (0.2-1.3); Blood Urea Nitrogen 49 mg/dL (9-20); Calcium 9.5 mg/dL (8.4-10.2); Carbon Dioxide 25 mmol/L (22-30); Chloride 95 mmol/L (98-107); Estimated CRCL calculation 9 ml/min; Estimated Glomerular Filt Rate 8; Glucose 96 mg/dL (65-110); Magnesium 2.6 mg/dL (1.6-2.3); Phosphorus 10.3 mg/dL (2.5-4.5); Potassium 5.2 mmol/L (3.4-5.0); Sodium 137 mmol/L (137-145)
[2021-08-09] MEDS: HEPARIN SODIUM 5,000 UNITS/ML VIAL 5000 UNITS SUB-Q ×3 (06:11→23:43)
[2021-08-09] MEDS: hydrALAZINE HCL 20 MG/ML VIAL 10 MG IV PUSH (06:20)
[2021-08-09] MEDS: NICOTINE (*PBKC) 21 MG PATCH 1 PATCH TRANSDERM (08:16)
[2021-08-09] MEDS: PANTOPRAZOLE SODIUM IV 40 MG VIAL IV PUSH (08:18)
--- NOTE | 2021-08-09 08:53 | PM.PNNEP ---
Progress Note: A&P Assessment and Plan (1) End stage renal disease: Code(s): N18.6 - End stage renal disease Status: Chronic Assessment and Plan: The patient has end-stage renal disease. He dialyzes Wednesdays and Fridays. He had a treatment Wednesday and and yesterday. His oxygenation status is doing well. He is on room air. Discussed with Dr Armendariz (2) Fluid overload: Qualifiers: Hypervolemia type: unspecified Qualified Code(s): E87.70 - Fluid overload, unspecified Code(s): E87.70 - Fluid overload, unspecified Status: Acute Assessment and Plan: Resolved (3) Elevated troponin: Code(s): R77.8 - Other specified abnormalities of plasma proteins Status: Acute Assessment and Plan: Troponins are a little bit elevated. However this is actually better than it has ever been at this hospital. He did have the stress test done on April 28 and it showed 2 infarcts but nothing reversible. (4) Suspected sleep apnea: Code(s): R29.818 - Other symptoms and signs involving the nervous system Status: Acute Assessment and Plan: The patient does not use a CPAP machine. (5) Tobacco abuse: Code(s): Z72.0 - Tobacco use Status: Chronic Assessment and Plan: The patient continued to smoke (6) Hypertension: Code(s): I10 - Essential (primary) hypertension Status: Chronic Assessment and Plan: Systolic blood pressure runs between 130 and 150 (7) Anemia of chronic disease: Code(s): D63.8 - Anemia in other chronic diseases classified elsewhere Status: Chronic Assessment and Plan: Hemoglobin is down to 10.3. EPO ordered. (8) Renal osteodystrophy: Code(s): N25.0 - Renal osteodystrophy Status: Acute Assessment and Plan: Phosphorus levels higher at 8. He is on Nepro which has very little phosphorus. Will give sevelamer along with the Nepro. (9) DM2 (diabetes mellitus, type 2): Code(s): E11.9 - Type 2 diabetes mellitus without complications Status: Chronic Assessment and Plan: On Accu-Cheks plus sliding scale insulin. Management per hospitalist. Subjective Date/time seen: 08/09/21 08:53 Interval history: Patient is awake but encephalopathic. Exam Narrative: WDWN in NAD on the ventilator. He looks comfortable. skin no rash head ncat lungs course bilateral cor reg no rub or gallop abd BS+ nontender and soft ext no edema. Objective Data Vital Signs Vital Signs: Vital Signs - 24 hr 08/08/21 10:00 08/08/21 10:06 08/08/21 10:25 Temperature 38.1 C H Pulse Rate 90 89 87 Respiratory Rate 13 14 16 Blood Pressure 90/67 L Pulse Oximetry 95 96 08/08/21 10:26 08/08/21 11:30 08/08/21 11:42 Temperature Pulse Rate 86 83 81 Respiratory Rate 16 13 Blood Pressure Pulse Oximetry 98 98 08/08/21 12:00 08/08/21 13:18 08/08/21 14:00 Temperature 37.7 C H Pulse Rate 81 83 86 Respiratory Rate 14 16 15 Blood Pressure 135/39 L 142/51 H Pulse Oximetry 97 94 96 08/08/21 15:26 08/08/21 15:42 08/08/21 16:00 Temperature 37.7 C H Pulse Rate 90 89 90 Respiratory Rate 15 14 19 Blood Pressure 142/42 H Pulse Oximetry 93 100 08/08/21 17:55 08/08/21 18:00 08/08/21 20:00 Temperature 37.5 C Pulse Rate 91 91 87 Respiratory Rate 23 H 20 Blood Pressure 132/31 L 140/39 L Pulse Oximetry 94 92 91 08/08/21 21:02 08/08/21 21:13 08/08/21 21:14 Temperature Pulse Rate 80 86 Respiratory Rate 19 19 Blood Pressure Pulse Oximetry 92 08/08/21 22:00 08/08/21 23:13 08/09/21 00:00 Temperature 37.3 C Pulse Rate 90 84 Respiratory Rate 22 H 14 Blood Pressure 133/45 L 123/39 L Pulse Oximetry 96 100 99 08/09/21 02:00 08/09/21 02:30 08/09/21 02:38 Temperature 37.0 C Pulse Rate 87 87 89 Respiratory Rate 17 19 19 Blood Pressure 125/38 L Pulse Oximetry 93 08/09/21 04
[2021-08-09] MEDS: WATER, STERILE FOR INJECTION 10 ML VIAL XX (10:32)
[2021-08-09] MEDS: OLANZapine 10 MG INJ VIAL 2.5 MG IM (10:34)
[2021-08-09 12:38] LABS: Glucose Point of Care 63 mg/dl (65-105)
--- NOTE | 2021-08-09 12:44 | WPDINTPN ---
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 and small-vessel ischemic disease, no acute intracranial abnormalities -will obtain ammonia level -patient does take Seroquel, buspirone, mirtazapine, imipramine, gabapentin, ropinirole at home -given patient all dose of olanzapine IM (2) Acute respiratory failure: Qualifiers: Respiratory failure complication: unspecified whether with hypoxia or hypercapnia Qualified Code(s): J96.00 - Acute respiratory failure, unspecified whether with hypoxia or hypercapnia Code(s): J96.00 - Acute respiratory failure, unspecified whether with hypoxia or hypercapnia Status: Acute Assessment and Plan: Acute shortness of breath/respiratory failure requiring intubation on the field by EMS as O2 sats was significantly low -patient was intubated on 08/05/2021 -successfully extubated on 08/08/2021 after passing his spontaneous breathing trials with adequate ABGs -continue ceftriaxone and azithromycin -was dialyzed on 08/05/2021 and 08/08/2021 -continue bronchodilators (3) Fluid overload: Qualifiers: Hypervolemia type: unspecified Qualified Code(s): E87.70 - Fluid overload, unspecified Code(s): E87.70 - Fluid overload, unspecified Status: Acute Assessment and Plan: Fluid overload as seen on chest x-ray, appreciate nephrology following the patient, likely due to chronic renal failure -volume overload improved after dialysis -dialysis per Nephrology (4) Pneumonia: Qualifiers: Laterality: unspecified laterality Lung location: unspecified part of lung Pneumonia type: due to unspecified organism Qualified Code(s): J18.9 - Pneumonia, unspecified organism Code(s): J18.9 - Pneumonia, unspecified organism Status: Acute Assessment and Plan: Chest x-ray shows bilateral infiltrates likely due to pneumonia versus edema -patient is on ceftriaxone and azithromycin for a total of 5 days -continue bronchodilators (5) Coronary artery disease: Code(s): I25.10 - Atherosclerotic heart disease of [place] coronary artery without angina pectoris Status: Acute Assessment and Plan: 04/29/2021 nuclear medicine Lexiscan stress with perfusion 1. Small area of mild infarct involving apical to mid inferior wall of left ventricle. 2. Large area of mild infarct involving apical to basal anterior and mid to basal anterolateral segments of left ventricle. 3. Left ventricular ejection fraction measuring 47%. (6) End-stage renal disease on hemodialysis: Code(s): N18.6 - End stage renal disease; Z99.2 - Dependence on renal dialysis Status: Chronic Assessment and Plan: Patient has a history of end-stage renal disease on hemodialysis, as a AV fistula on the left upper extremity -appreciate Nephrology following the patient -dialysis per Nephrology (7) DM2 (diabetes mellitus, type 2): Code(s): E11.9 - Type 2 diabetes mellitus without complications Status: Chronic Assessment and Plan: Continue Accu-Cheks and sliding scale insulin (8) Anemia of chronic disease: Code(s): D63.8 - Anemia in other chronic diseases classified elsewhere Status: Chronic Assessment and Plan: Anemia of chronic disease, currently hemoglobin stable, will continue to monitor closely (9) CHF (congestive heart failure): Qualifiers: Heart failure chronicity: unspecified Heart failure type: unspecified Qualified Code(s): I50.9 - Heart failure, unspecified Code(s): I50.9 - Heart failure, unspecified Status: Chronic Assessment and Plan: Echocardiogram 08/05/2021 shows EF of 60-65%, diastolic dysfunction is present, mild MR, RVSP 32 mmHg (10) Elevated tropon
[2021-08-09 13:54] LABS: Glucose Point of Care 104 mg/dl (65-105)
--- NOTE | 2021-08-09 18:01 | PCSTNOTE ---
Please refer to the Bedside Swallow Evaluation in the EMR. Please note, silent aspiration cannot be ruled out at bedside. Therapist informed nursing of results and recommendations. They will let know.
[2021-08-09 18:14] LABS: Glucose Point of Care 85 mg/dl (65-105)
[2021-08-09 23:43] LABS: Glucose Point of Care 71 mg/dl (65-105)
[2021-08-09] MEDS: SEVELAMER CARBONATE 800 MG TABLET FEED TUBE (23:43)
[2021-08-09] MEDS: amLODIPine BESYLATE 5 MG TABLET PO (23:43)
[2021-08-09] MEDS: cloNIDine HCL 0.1 MG TABLET PO (23:43)
[2021-08-10] VITALS (30 sets, daily range): BP systolic 96–144; BP diastolic 28–66; PULSE 59–86; RESP 10–23; TEMP 36.5–37.1; O2SAT 94–100
[2021-08-10 01:32] LABS: Glucose Point of Care 112 mg/dl (65-105)
[2021-08-10] MEDS: ALBUTEROL SULFATE NEB 2.5 MG/0.5 ML INH 5 MG INHALATION ×4 (02:01→21:45)
[2021-08-10] MEDS: IPRATROPIUM BR 0.02% INH SOLN 0.5 MG/2.5 ML VIAL INHALATION ×4 (02:02→21:45)
[2021-08-10 04:31] LABS: Basophils Absolute Auto 0.1 K/mm3 (0.0-0.1); Basophils Percent Auto 0.6 % (0.2-1.2); Eosinophils Absolute Auto 0.2 K/mm3 (0-0.3); Eosinophils Percent Auto 2.2 % (0-4.4); Hematocrit 36.2 % (42.0-52.0); Hemoglobin 11.2 g/dL (14.0-18.0); Immature Granulocyte Absolute 0.09 K/mm3 (0.00-0.031); Immature Granulocyte Percent A 0.8 % (0-0.5); Lymphocytes Absolute Auto 0.74 K/mm3 (0.9-3.2); Lymphocytes Percent Auto 6.7 % (18.3-44.2); Mean Corpuscular HGB Conc 30.9 g/dl (32-36); Mean Corpuscular Hemoglobin 26.7 pg (26-34); Mean Corpuscular Volume 86.4 fl (80-100); Mean Platelet Volume 11.5 fl (7.4-10.4); Monocytes Absolute Auto 0.7 K/mm3 (0.1-0.6); Monocytes Percent Auto 6.6 % (2.6-8.5); Neutrophils Absolute Auto 9.2 K/mm3 (1.3-6.7); Neutrophils Percent Auto 83.1 % (45.5-73.1); Platelet Count Result 281 k/mm3 (150-375); Red Blood Count 4.19 M/mm3 (4.6-6.20); Red Cell Distribution Width 16.7 % (11.5-14.5); White Blood Count 11.1 K/mm3 (4.5-10.0)
[2021-08-10 04:49] LABS: Alanine Aminotransferase 18 U/L (4-50); Albumin Level 4.4 g/dL (3.5-5.1); Alkaline Phosphatase 207 U/L (38-126); Anion Gap 14 mmol/L (8-16); Aspartate Amino Transferase 28 U/L (17-59); Bilirubin,Total 0.7 mg/dL (0.2-1.3); Blood Urea Nitrogen 46 mg/dL (9-20); Calcium 9.8 mg/dL (8.4-10.2); Carbon Dioxide 27 mmol/L (22-30); Chloride 97 mmol/L (98-107); Estimated CRCL calculation 10 ml/min; Estimated Glomerular Filt Rate 8; Glucose 102 mg/dL (65-110); Magnesium 2.6 mg/dL (1.6-2.3); Phosphorus 9.3 mg/dL (2.5-4.5); Potassium 4.9 mmol/L (3.4-5.0); Sodium 138 mmol/L (137-145)
[2021-08-10 05:51] LABS: Glucose Point of Care 82 mg/dl (65-105)
[2021-08-10] MEDS: SEVELAMER CARBONATE 800 MG TABLET FEED TUBE ×2 (05:56→11:07)
[2021-08-10] MEDS: HEPARIN SODIUM 5,000 UNITS/ML VIAL 5000 UNITS SUB-Q ×3 (05:56→22:06)
[2021-08-10] MEDS: cloNIDine HCL 0.1 MG TABLET PO ×2 (05:56→14:55)
[2021-08-10 08:35] LABS: Ammonia < 9 umol/L (9-30)
--- NOTE | 2021-08-10 09:45 | PM.PNNEP ---
Progress Note: A&P Assessment and Plan (1) End stage renal disease: Code(s): N18.6 - End stage renal disease Status: Chronic Assessment and Plan: The patient has end-stage renal disease. He dialyzes Wednesdays and Fridays. He had a treatment Wednesday and and yesterday. His oxygenation status is doing well. He is on room air. will get another treatment tomorrow. Discussed with Dr Armendariz (2) Fluid overload: Qualifiers: Hypervolemia type: unspecified Qualified Code(s): E87.70 - Fluid overload, unspecified Code(s): E87.70 - Fluid overload, unspecified Status: Acute Assessment and Plan: Resolved (3) Elevated troponin: Code(s): R77.8 - Other specified abnormalities of plasma proteins Status: Acute Assessment and Plan: Troponins are a little bit elevated. However this is actually better than it has ever been at this hospital. He did have the stress test done on April 28 and it showed 2 infarcts but nothing reversible. (4) Suspected sleep apnea: Code(s): R29.818 - Other symptoms and signs involving the nervous system Status: Acute Assessment and Plan: The patient does not use a CPAP machine. (5) Tobacco abuse: Code(s): Z72.0 - Tobacco use Status: Chronic Assessment and Plan: The patient continued to smoke (6) Hypertension: Code(s): I10 - Essential (primary) hypertension Status: Chronic Assessment and Plan: Systolic blood pressure runs between 130 and 150 (7) Anemia of chronic disease: Code(s): D63.8 - Anemia in other chronic diseases classified elsewhere Status: Chronic Assessment and Plan: Hemoglobin is down to 10.3. EPO ordered. (8) Renal osteodystrophy: Code(s): N25.0 - Renal osteodystrophy Status: Acute Assessment and Plan: Phosphorus levels Were as high as 10.3 but now down to 9.3. he pulled his feeding tube out so is not getting Nepro anymore. (9) DM2 (diabetes mellitus, type 2): Code(s): E11.9 - Type 2 diabetes mellitus without complications Status: Chronic Assessment and Plan: On Accu-Cheks plus sliding scale insulin. Management per hospitalist. Subjective Date/time seen: 08/10/21 09:45 Interval history: Patient is awake. He answer some questions. He is confused and still restrained because he pulls things out Exam Narrative: WDWN in NAD on the ventilator. He looks comfortable. skin no rash or subcu nodules head ncat lungs course bilateral cor reg no rub or gallop abd BS+ nontender and soft ext no edema or cyanosis. Objective Data Vital Signs Vital Signs: Vital Signs - 24 hr 08/09/21 10:00 08/09/21 12:00 08/09/21 14:00 Temperature 36.9 C 36.7 C Pulse Rate 86 87 89 Respiratory Rate 20 26 H Blood Pressure 146/58 H Pulse Oximetry 97 97 95 08/09/21 15:06 08/09/21 15:15 08/09/21 15:59 Temperature Pulse Rate 83 87 89 Respiratory Rate 28 H 26 H Blood Pressure Pulse Oximetry 08/09/21 16:00 08/09/21 16:07 08/09/21 18:00 Temperature 36.7 C 36.7 C Pulse Rate 89 89 91 Respiratory Rate 20 18 18 Blood Pressure 155/128 H 159/54 H Pulse Oximetry 95 94 95 08/09/21 19:10 08/09/21 20:00 08/09/21 20:20 Temperature 36.3 C L 36.7 C Pulse Rate 89 90 87 Respiratory Rate 18 17 Blood Pressure Pulse Oximetry 08/09/21 20:30 08/09/21 20:40 08/09/21 21:15 Temperature Pulse Rate 86 86 85 Respiratory Rate 22 H 22 H Blood Pressure 144/45 H Pulse Oximetry 08/09/21 21:30 08/09/21 21:49 08/09/21 22:00 Temperature 36.8 C 36.9 C Pulse Rate 87 83 85 Respiratory Rate 10 L 14 Blood Pressure 153/45 H 151/45 H Pulse Oximetry 84 L 99 08/09/21 22:01 08/09/21 22:15 08/09/21 22:30 Temperature 36.9 C 36.9 C 36.9 C Pulse Rate 85 87 86 Respiratory Rate 16 19 17 Blood Pressure 141/38 H 150/39 H Pulse Oximetry 99 98 98
[2021-08-10] MEDS: amLODIPine BESYLATE 5 MG TABLET PO ×2 (10:48→22:08)
[2021-08-10] MEDS: FUROSEMIDE 80 MG TABLET PO (10:48)
[2021-08-10] MEDS: NICOTINE (*PBKC) 21 MG PATCH 1 PATCH TRANSDERM (10:49)
[2021-08-10] MEDS: ISOSORBIDE MONONITRATE 30 MG TAB.ER.24H PO (10:49)
[2021-08-10] MEDS: LOSARTAN POTASSIUM 50 MG TABLET PO (10:49)
[2021-08-10] MEDS: PANTOPRAZOLE SODIUM IV 40 MG VIAL IV PUSH (10:49)
--- NOTE | 2021-08-10 12:43 | P.PNINT_ITS ---
Progress Note: A&P Assessment and Plan (1) Encephalopathy: Code(s): G93.40 - Encephalopathy, unspecified Status: Acute Assessment and Plan: Post extubation patient is confused, ABGs in not show any hypercapnia -08/09/2021 CT scan of the brain showed old infarcts and small-vessel ischemic disease, no acute intracranial abnormalities -ammonia level is less than 9 -patient did passes swallow test with nectar thick liquids, will restart home medications --> Seroquel, buspirone, mirtazapine, imipramine, gabapentin, ropinirole -encephalopathy could be related to possible lingering sedation intubation, uremic encephalopathy given patient has chronic kidney disease on dialysis. (2) Acute respiratory failure: Qualifiers: Respiratory failure complication: unspecified whether with hypoxia or hypercapnia Qualified Code(s): J96.00 - Acute respiratory failure, unspecified whether with hypoxia or hypercapnia Code(s): J96.00 - Acute respiratory failure, unspecified whether with hypoxia or hypercapnia Status: Acute Assessment and Plan: Acute shortness of breath/respiratory failure requiring intubation on the field by EMS as O2 sats was significantly low -patient was intubated on 08/05/2021 -successfully extubated on 08/08/2021 after passing his spontaneous breathing trials with adequate ABGs -continue ceftriaxone and azithromycin for a total of 5 days, -was dialyzed on 08/05/2021 and 08/08/2021 and 08/09/2021 -continue bronchodilators (3) Fluid overload: Qualifiers: Hypervolemia type: unspecified Qualified Code(s): E87.70 - Fluid overload, unspecified Code(s): E87.70 - Fluid overload, unspecified Status: Acute Assessment and Plan: Fluid overload as seen on chest x-ray, appreciate nephrology following the patient, likely due to chronic renal failure -volume overload improved after dialysis -dialysis per Nephrology (4) Pneumonia: Qualifiers: Laterality: unspecified laterality Lung location: unspecified part of lung Pneumonia type: due to unspecified organism Qualified Code(s): J18.9 - Pneumonia, unspecified organism Code(s): J18.9 - Pneumonia, unspecified organism Status: Acute Assessment and Plan: Chest x-ray shows bilateral infiltrates likely due to pneumonia versus edema -patient is on ceftriaxone and azithromycin for a total of 5 days -continue bronchodilators (5) Coronary artery disease: Code(s): I25.10 - Atherosclerotic heart disease of [place] coronary artery without angina pectoris Status: Acute Assessment and Plan: 04/29/2021 nuclear medicine Lexiscan stress with perfusion 1. Small area of mild infarct involving apical to mid inferior wall of left ventricle. 2. Large area of mild infarct involving apical to basal anterior and mid to basal anterolateral segments of left ventricle. 3. Left ventricular ejection fraction measuring 47%. (6) End-stage renal disease on hemodialysis: Code(s): N18.6 - End stage renal disease; Z99.2 - Dependence on renal dialysis Status: Chronic Assessment and Plan: Patient has a history of end-stage renal disease on hemodialysis, as a AV fistula on the left upper extremity -appreciate Nephrology following the patient -dialysis per Nephrology (7) DM2 (diabetes mellitus, type 2): Code(s): E11.9 - Type 2 diabetes mellitus without complications Status: Chronic Assessment and Plan: Continue Accu-Cheks and sliding scale insulin (8) Anemia of chronic disease: Code(s): D63.8 - Anemia in other chronic diseases c
--- NOTE | 2021-08-10 12:48 | PCSTNOTE ---
Please refer to the Bedside Swallow Evaluation in the EMR. Please note, silent aspiration cannot be ruled out at bedside.
[2021-08-10] MEDS: HYDROcodone/acetaminophen (*CRX) 5-325 MG TABLET 1 TAB PO (14:57)
--- NOTE | 2021-08-10 17:06 | PC.NURSE ---
1650-pt's nephew, jesenia, called and updated 1699-report called to STEWART Kumar
--- NOTE | 2021-08-10 17:08 | PC.NURSE ---
Upon transferring pt to floor bed, noted pt had pulled out INT in rt wrist. New 20G IV started in Rt hand. Pt becoming increasingly argumentitve about wanting to leave the hospital, although pt cannot recall how he came to be in the hospital, blaming his nephew for putting him here. Pt was re-oriented, but did not want to believe the staff. I did speak to nephew and he stated, he will call him in a couple of hours . 1725-pt transferred to 333 via bed with charge and primary, RN. Pt stable. pt belongings, including clothes, medications, and locked up items: wallet, keys, etc. were transferred with pt, and locked up items were given to loan secretary.
--- NOTE | 2021-08-10 17:34 | PC.NURSE ---
Transferred patient to [facility] via bed, locked belongings handed to guidance secretary along with chart and medications. Patient arrived to [facility] at 1730, restraints on and bed alarm set.
[2021-08-10 19:53] LABS: Glucose Point of Care 135 mg/dl (65-105)
[2021-08-10] MEDS: LORazepam INJ (*CRX) 2 MG/ML VIAL 0.5 MG IM (21:56)
[2021-08-10] MEDS: IMIPRAMINE HCL 25 MG TABLET PO (22:07)
[2021-08-10] MEDS: busPIRone HCL 10 MG TABLET 30 MG PO (22:07)
[2021-08-10] MEDS: QUEtiapine FUMARATE 100 MG TABLET PO (22:08)
[2021-08-10] MEDS: MIRTAZAPINE 15 MG TABLET PO (22:08)
[2021-08-10] MEDS: PREGABALIN (*CRX) 50 MG CAPSULE 100 MG PO (22:10)
[2021-08-10] MEDS: rOPINIRole HCL 1 MG TABLET 2 MG PO (22:10)
[2021-08-11] VITALS (25 sets, daily range): BP systolic 92–123; BP diastolic 28–57; PULSE 59–94; RESP 16–18; TEMP 36–36.5; O2SAT 95–97
[2021-08-11] MEDS: LORazepam INJ (*CRX) 2 MG/ML VIAL 0.5 MG IM ×4 (00:12→12:35)
[2021-08-11] MEDS: cloNIDine HCL 0.1 MG TABLET PO ×2 (00:14→21:43)
[2021-08-11 02:32] LABS: Glucose Point of Care 88 mg/dl (65-105)
[2021-08-11] MEDS: IPRATROPIUM BR 0.02% INH SOLN 0.5 MG/2.5 ML VIAL INHALATION ×3 (03:33→20:34)
[2021-08-11] MEDS: ALBUTEROL SULFATE NEB 2.5 MG/0.5 ML INH 5 MG INHALATION ×3 (03:33→20:34)
[2021-08-11] MEDS: SEVELAMER CARBONATE 800 MG TABLET FEED TUBE ×3 (06:32→17:57)
--- NOTE | 2021-08-11 07:45 | PM.PNNEP ---
Progress Note: A&P Assessment and Plan (1) End stage renal disease: Code(s): N18.6 - End stage renal disease Status: Chronic Assessment and Plan: The patient has end-stage renal disease. He dialyzes Wednesdays and Fridays. He had a treatment Wednesday and and Wednesday. His oxygenation status is doing well. He is on room air. (2) Fluid overload: Qualifiers: Hypervolemia type: unspecified Qualified Code(s): E87.70 - Fluid overload, unspecified Code(s): E87.70 - Fluid overload, unspecified Status: Acute Assessment and Plan: Resolved (3) Elevated troponin: Code(s): R77.8 - Other specified abnormalities of plasma proteins Status: Acute Assessment and Plan: Troponins are a little bit elevated. However this is actually better than it has ever been at this hospital. He did have the stress test done on April 28 and it showed 2 infarcts but nothing reversible. (4) Suspected sleep apnea: Code(s): R29.818 - Other symptoms and signs involving the nervous system Status: Acute Assessment and Plan: The patient does not use a CPAP machine. (5) Tobacco abuse: Code(s): Z72.0 - Tobacco use Status: Chronic Assessment and Plan: The patient continued to smoke (6) Hypertension: Code(s): I10 - Essential (primary) hypertension Status: Chronic Assessment and Plan: Systolic blood pressure runs between 96 and 145 (7) Anemia of chronic disease: Code(s): D63.8 - Anemia in other chronic diseases classified elsewhere Status: Chronic Assessment and Plan: Hemoglobin is down to 10.3. EPO on board today CBC is pending (8) Renal osteodystrophy: Code(s): N25.0 - Renal osteodystrophy Status: Acute Assessment and Plan: Phosphorus levels Were as high as 10.3 but now down to 9.3. he pulled his feeding tube out so is not getting Nepro anymore. (9) DM2 (diabetes mellitus, type 2): Code(s): E11.9 - Type 2 diabetes mellitus without complications Status: Chronic Assessment and Plan: On Accu-Cheks plus sliding scale insulin. Management per hospitalist. Subjective Date/time seen: 08/11/21 07:45 Interval history: Patient is awake. He was up all night somewhat agitated. He received some medicines an hour to go. Now he is calmer. He answers yes no questions but is not very oriented. He is confused Exam Narrative: WDWN in NAD on the ventilator. He looks comfortable. skin no rash or subcu nodules head ncat lungs course bilateral cor reg no rub or gallop abd BS+ nontender and soft ext no edema or cyanosis. Objective Data Vital Signs Vital Signs: Vital Signs - 24 hr 08/10/21 08:00 08/10/21 08:54 08/10/21 09:02 Temperature 37.1 C Pulse Rate 82 80 Respiratory Rate 16 16 Blood Pressure 121/40 L Pulse Oximetry 97 94 08/10/21 09:04 08/10/21 10:00 08/10/21 11:53 Temperature Pulse Rate 83 86 82 Respiratory Rate 18 19 Blood Pressure 130/42 L Pulse Oximetry 96 08/10/21 11:54 08/10/21 11:57 08/10/21 14:00 Temperature 37.1 C Pulse Rate 86 82 82 Respiratory Rate 14 16 Blood Pressure 96/44 L Pulse Oximetry 96 97 08/10/21 14:42 08/10/21 14:51 08/10/21 16:00 Temperature 37.1 C Pulse Rate 81 82 85 Respiratory Rate 20 16 19 Blood Pressure 120/47 L Pulse Oximetry 95 08/10/21 21:45 08/10/21 21:55 08/10/21 22:47 Temperature 36.5 C Pulse Rate 83 81 59 L Respiratory Rate 16 16 16 Blood Pressure 118/28 L Pulse Oximetry 97 08/11/21 00:00 08/11/21 03:35 08/11/21 03:45 Temperature 36.5 C Pulse Rate 59 L 87 83 Respiratory Rate 16 16 16 Blood Pressure 118/28 L Pulse Oximetry 97 08/11/21 04:29 08/11/21 06:31 Temperature 36.2 C L Pulse Rate 76 Respiratory Rate 18 Blood Pressure 105/29 L Pulse Oximetry 97 96 Intake/Output Intake/Output: Intake & Output
[2021-08-11 08:03] LABS: Albumin Level 4.3 g/dL (3.5-5.1); Anion Gap 19 mmol/L (8-16); Blood Urea Nitrogen 66 mg/dL (9-20); Calcium 9.5 mg/dL (8.4-10.2); Carbon Dioxide 24 mmol/L (22-30); Chloride 96 mmol/L (98-107); Estimated CRCL calculation 7 ml/min; Estimated Glomerular Filt Rate 6; Glucose 84 mg/dL (65-110); Potassium 5.2 mmol/L (3.4-5.0); Sodium 139 mmol/L (137-145)
[2021-08-11 08:17] LABS: Glucose Point of Care 72 mg/dl (65-105)
--- NOTE | 2021-08-11 08:59 | PCOTNOTE ---
Attempted to see pt. for evaluation. Pt. away from room for dialysis.
--- NOTE | 2021-08-11 10:45 | ECG_ITS ---
Measurements Intervals [place] Rate: 91 P: 36 [place]: 293 QRS: 41 QRSD: 107 T: 84 QT: 367 QTc: 453 Interpretive Statements SINUS RHYTHM WITH FIRST DEGREE AV BLOCK LEFT ATRIAL ENLARGEMENT LEFT VENTRICULAR HYPERTROPHY AND ST-T CHANGE ST-T WAVE ABNORMALITY IN ANTEROLAT/HIGH LAT LEADS- CONSIDER ISCHEMIA BASELINE ARTIFACT- AVR, AVL, AVF ABNORMAL ECG Electronically Signed On 08-11-2021 11:28:44 [employer] by Romaine Rivers D.O.
--- NOTE | 2021-08-11 10:55 | PM.IMPN ---
Progress Note: A&P Assessment and Plan (1) Encephalopathy: Code(s): G93.40 - Encephalopathy, unspecified Status: Acute Assessment and Plan: Post extubation patient is confused, ABGs in not show any hypercapnia -08/09/2021 CT scan of the brain showed old infarcts and small-vessel ischemic disease, no acute intracranial abnormalities -ammonia level is less than 9 -patient did passes swallow test with nectar thick liquids, will restart home medications --> Seroquel, buspirone, mirtazapine, imipramine, gabapentin, ropinirole -encephalopathy could be related to possible lingering sedation intubation, uremic encephalopathy given patient has chronic kidney disease on dialysis. (2) Acute respiratory failure: Qualifiers: Respiratory failure complication: unspecified whether with hypoxia or hypercapnia Qualified Code(s): J96.00 - Acute respiratory failure, unspecified whether with hypoxia or hypercapnia Code(s): J96.00 - Acute respiratory failure, unspecified whether with hypoxia or hypercapnia Status: Acute Assessment and Plan: Acute shortness of breath/respiratory failure requiring intubation on the field by EMS as O2 sats was significantly low -patient was intubated on 08/05/2021 -successfully extubated on 08/08/2021 after passing his spontaneous breathing trials with adequate ABGs -continue ceftriaxone and azithromycin for a total of 5 days, -was dialyzed on 08/05/2021 and 08/08/2021 and 08/09/2021 -continue bronchodilators (3) Fluid overload: Qualifiers: Hypervolemia type: unspecified Qualified Code(s): E87.70 - Fluid overload, unspecified Code(s): E87.70 - Fluid overload, unspecified Status: Acute Assessment and Plan: Fluid overload as seen on chest x-ray, appreciate nephrology following the patient, likely due to chronic renal failure -volume overload improved after dialysis -dialysis per Nephrology (4) Pneumonia: Qualifiers: Laterality: unspecified laterality Lung location: unspecified part of lung Pneumonia type: due to unspecified organism Qualified Code(s): J18.9 - Pneumonia, unspecified organism Code(s): J18.9 - Pneumonia, unspecified organism Status: Acute Assessment and Plan: Chest x-ray shows bilateral infiltrates likely due to pneumonia versus edema -patient is on ceftriaxone and azithromycin for a total of 5 days -continue bronchodilators (5) Coronary artery disease: Code(s): I25.10 - Atherosclerotic heart disease of [place] coronary artery without angina pectoris Status: Acute Assessment and Plan: 04/29/2021 nuclear medicine Lexiscan stress with perfusion 1. Small area of mild infarct involving apical to mid inferior wall of left ventricle. 2. Large area of mild infarct involving apical to basal anterior and mid to basal anterolateral segments of left ventricle. 3. Left ventricular ejection fraction measuring 47%. (6) End-stage renal disease on hemodialysis: Code(s): N18.6 - End stage renal disease; Z99.2 - Dependence on renal dialysis Status: Chronic Assessment and Plan: Patient has a history of end-stage renal disease on hemodialysis, as a AV fistula on the left upper extremity -appreciate Nephrology following the patient -dialysis per Nephrology (7) DM2 (diabetes mellitus, type 2): Code(s): E11.9 - Type 2 diabetes mellitus without complications Status: Chronic Assessment and Plan: Continue Accu-Cheks and sliding scale insulin (8) Anemia of chronic disease: Code(s): D63.8 - Anemia in other chronic diseases classified elsewhere Status: Chronic Assessment and Plan: Anemia of chronic disease, currently hemoglobin stable, will continue to monitor closely (9) CHF (congestive heart failure): Qualifiers: Heart failure chronicity: unspecified Heart failure type: unspecified Qualified Code(s): I50.9 - Heart failure, unspecifie
--- NOTE | 2021-08-11 11:30 | PM.EVENT ---
Event Note Event Note Event Note: patient is on dialysis. He is tolerating it well. He was seen at 10:40 a.m.
[2021-08-11] MEDS: busPIRone HCL 10 MG TABLET 30 MG PO ×2 (12:28→21:43)
[2021-08-11 12:32] LABS: Glucose Point of Care 76 mg/dl (65-105)
--- NOTE | 2021-08-11 15:13 | PCNFU ---
Nutrition Follow-Up Complete: Inadequate Oral Intake as related to mechanical ventilation as evidenced by NPO Goal: Meet estimanted nutritional needs Pt is slowly progressing towards goal Pt current nutrition is minced and moist, L5/Renal dialysis diet Last recorded weight is 73.2 kg, up from 72.5kg reported 08/10/21. Bowel Motility: No new BM reported Labs Reviewed: hgb 11.2, hct 36.2, Na 5.2, Cl 96, GFR 6, BUN 66, Cr 8.8, ALP 207, Mg 2.6 Meds Noted: albuterol, buspar, renvela Skin: No new skin breakdown at this time. WNL Additional Notes: Unable to visit with pt due to pt being confused. Pt was previously NPO. Current nutrition is a mince and moist, L5/Renal dialysis diet, per speech recommendations. No reported intake at this time. Spoke to nursing via phone who confirms current nutrition and intake. Pt was downgraded from ICU to IMU. Pt remains on Dialysis. Recommend adding orders for a dietary supplement of Nepro BID to provide an additional 425kcal and 19g of protein if intake remains under 50%. Agree with diet orders at this time. Will continue to follow. Will monitor every 3 days
[2021-08-11 16:43] LABS: Glucose Point of Care 142 mg/dl (65-105)
[2021-08-11] MEDS: ISOSORBIDE MONONITRATE 30 MG TAB.ER.24H PO (17:57)
[2021-08-11] MEDS: HEPARIN SODIUM 5,000 UNITS/ML VIAL 5000 UNITS SUB-Q ×2 (17:57→21:44)
[2021-08-11] MEDS: PANTOPRAZOLE SODIUM IV 40 MG VIAL IV PUSH (17:57)
[2021-08-11] MEDS: QUEtiapine FUMARATE 100 MG TABLET PO (21:43)
[2021-08-11] MEDS: PREGABALIN (*CRX) 50 MG CAPSULE 100 MG PO (21:43)
[2021-08-11] MEDS: rOPINIRole HCL 1 MG TABLET 2 MG PO (21:43)
[2021-08-11] MEDS: MIRTAZAPINE 15 MG TABLET PO (21:43)
[2021-08-11] MEDS: IMIPRAMINE HCL 25 MG TABLET PO (21:43)
--- NOTE | 2021-08-11 23:50 | PC.NURSE ---
Pt follow commands and alert and oriented at this time. Assessed the need for restraints and they are no longer needed.
[2021-08-12] VITALS (9 sets, daily range): BP systolic 105–108; BP diastolic 35–52; PULSE 20–81; RESP 18; TEMP 36.6; O2SAT 96–99
[2021-08-12] MEDS: IPRATROPIUM BR 0.02% INH SOLN 0.5 MG/2.5 ML VIAL INHALATION ×3 (02:20→14:24)
[2021-08-12] MEDS: ALBUTEROL SULFATE NEB 2.5 MG/0.5 ML INH 5 MG INHALATION ×3 (02:20→14:25)
[2021-08-12 07:02] LABS: Albumin Level 4.2 g/dL (3.5-5.1); Anion Gap 12 mmol/L (8-16); Blood Urea Nitrogen 42 mg/dL (9-20); Calcium 9.4 mg/dL (8.4-10.2); Carbon Dioxide 27 mmol/L (22-30); Chloride 102 mmol/L (98-107); Estimated CRCL calculation 11 ml/min; Estimated Glomerular Filt Rate 9; Glucose 123 mg/dL (65-110); Phosphorus 8.3 mg/dL (2.5-4.5); Potassium 4.5 mmol/L (3.4-5.0); Sodium 141 mmol/L (137-145)
[2021-08-12] MEDS: HEPARIN SODIUM 5,000 UNITS/ML VIAL 5000 UNITS SUB-Q ×2 (07:38→13:02)
[2021-08-12 08:01] LABS: Glucose Point of Care 129 mg/dl (65-105)
[2021-08-12] MEDS: FUROSEMIDE 80 MG TABLET PO ×2 (09:08→09:14)
[2021-08-12] MEDS: busPIRone HCL 10 MG TABLET 30 MG PO (09:08)
[2021-08-12] MEDS: NICOTINE (*PBKC) 21 MG PATCH 1 PATCH TRANSDERM (09:08)
[2021-08-12] MEDS: SEVELAMER CARBONATE 800 MG TABLET FEED TUBE ×3 (09:09→16:35)
[2021-08-12] MEDS: PANTOPRAZOLE SODIUM IV 40 MG VIAL IV PUSH (09:09)
--- NOTE | 2021-08-12 09:21 | PM.PNNEP ---
Progress Note: A&P Assessment and Plan (1) End stage renal disease: Code(s): N18.6 - End stage renal disease Status: Chronic Assessment and Plan: The patient has end-stage renal disease. He dialyzes Wednesdays and Fridays. He had a treatment yesterday. His oxygenation status is doing well. He is on room air. (2) Fluid overload: Qualifiers: Hypervolemia type: unspecified Qualified Code(s): E87.70 - Fluid overload, unspecified Code(s): E87.70 - Fluid overload, unspecified Status: Acute Assessment and Plan: Resolved (3) Elevated troponin: Code(s): R77.8 - Other specified abnormalities of plasma proteins Status: Acute Assessment and Plan: Troponins are a little bit elevated. However this is actually better than it has ever been at this hospital. He did have the stress test done on April 28 and it showed 2 infarcts but nothing reversible. (4) Suspected sleep apnea: Code(s): R29.818 - Other symptoms and signs involving the nervous system Status: Acute Assessment and Plan: The patient does not use a CPAP machine. (5) Tobacco abuse: Code(s): Z72.0 - Tobacco use Status: Chronic Assessment and Plan: The patient continued to smoke (6) Hypertension: Code(s): I10 - Essential (primary) hypertension Status: Chronic Assessment and Plan: Systolic blood pressure runs between 96 and 145 He is on losartan and a lower dose of clonidine. (7) Anemia of chronic disease: Code(s): D63.8 - Anemia in other chronic diseases classified elsewhere Status: Chronic Assessment and Plan: Hemoglobin is down to 10.3. EPO on board today CBC is pending (8) Renal osteodystrophy: Code(s): N25.0 - Renal osteodystrophy Status: Acute Assessment and Plan: Phosphorus levels Were as high as 10.3 but now down to 9.3. he pulled his feeding tube out so is not getting Nepro anymore. (9) DM2 (diabetes mellitus, type 2): Code(s): E11.9 - Type 2 diabetes mellitus without complications Status: Chronic Assessment and Plan: On Accu-Cheks plus sliding scale insulin. Management per hospitalist. Subjective Date/time seen: 08/12/21 09:21 Interval history: Patient is awake. He had a better night. Seems alert and oriented today. Exam Narrative: WDWN in NAD on the ventilator. He looks comfortable. skin no rash or subcu nodules head ncat lungs Fairly clear cor reg no rub or gallop abd BS+ nontender and soft ext no edema or cyanosis. Objective Data Vital Signs Vital Signs: Vital Signs - 24 hr 08/11/21 09:30 08/11/21 09:45 08/11/21 10:00 Temperature Pulse Rate 85 82 86 Respiratory Rate Blood Pressure 123/52 L 119/49 L 118/47 L Pulse Oximetry 08/11/21 10:15 08/11/21 10:30 08/11/21 10:45 Temperature Pulse Rate 90 94 92 Respiratory Rate Blood Pressure 105/48 L 105/47 L 106/40 L Pulse Oximetry 08/11/21 11:00 08/11/21 11:15 08/11/21 11:30 Temperature Pulse Rate 90 92 92 Respiratory Rate Blood Pressure 97/44 L 97/48 L 98/41 L Pulse Oximetry 08/11/21 11:45 08/11/21 12:00 08/11/21 12:08 Temperature Pulse Rate 90 90 90 Respiratory Rate Blood Pressure 92/41 L 104/39 L 112/51 L Pulse Oximetry 08/11/21 12:20 08/11/21 13:54 08/11/21 13:55 Temperature 36.5 C 36.0 C L Pulse Rate 88 85 82 Respiratory Rate 16 16 18 Blood Pressure 117/48 L 100/48 L Pulse Oximetry 95 08/11/21 20:40 08/11/21 20:50 08/12/21 00:00 Temperature 36.6 C Pulse Rate 84 84 73 Respiratory Rate 18 18 18 Blood Pressure 105/35 L Pulse Oximetry 96 08/12/21 02:20 08/12/21 02:30 08/12/21 09:19 Temperature Pulse Rate 78 78 Respiratory Rate 18 18 Blood Pressure 107/44 L Pulse Oximetry Intake/Output Intake/Output: Intake & Output 08/09/21 08/10/21 08/11/21 08/12/21 23:59
--- NOTE | 2021-08-12 09:49 | PCOTNOTE ---
Attempted to see patient at 09:49am, patient currently receiving raspatory therapy treatment.
--- NOTE | 2021-08-12 10:36 | PC.NURSE ---
MD Benoit informed clonidine held for soft bp this am.
[2021-08-12 11:20] LABS: Glucose Point of Care 174 mg/dl (65-105)
--- NOTE | 2021-08-12 15:53 | PC.NURSE ---
Confirmed with MD Benoit that pt will be discharging today, informed son, son able to pick pt up this evening.
--- NOTE | 2021-08-12 15:55 | PM.DS ---
DS: Admitting Diagnosis Discharge Date 08/12/2021 Admitting Diagnosis (1) Acute respiratory failure: Qualifiers: Respiratory failure complication: unspecified whether with hypoxia or hypercapnia Qualified Code(s): J96.00 - Acute respiratory failure, unspecified whether with hypoxia or hypercapnia Code(s): J96.00 - Acute respiratory failure, unspecified whether with hypoxia or hypercapnia Status: Acute Assessment and Plan: Pt is intubated on ventilator Ventilator management as per ICU MD (2) Fluid overload: Qualifiers: Hypervolemia type: unspecified Qualified Code(s): E87.70 - Fluid overload, unspecified Code(s): E87.70 - Fluid overload, unspecified Status: Acute Assessment and Plan: Pt is over loaded Pt will need urgent dialysis today nephrology on board (3) Pneumonia: Qualifiers: Laterality: unspecified laterality Lung location: unspecified part of lung Pneumonia type: due to unspecified organism Qualified Code(s): J18.9 - Pneumonia, unspecified organism Code(s): J18.9 - Pneumonia, unspecified organism Status: Acute Assessment and Plan: continue iv rocephin and zithromax follow BC (4) Coronary artery disease: Code(s): I25.10 - Atherosclerotic heart disease of [place] coronary artery without angina pectoris Status: Acute Assessment and Plan: 04/29/2021 nuclear medicine Lexiscan stress with perfusion Pt has history of heart cath with stent insitu (5) End-stage renal disease on hemodialysis: Code(s): N18.6 - End stage renal disease; Z99.2 - Dependence on renal dialysis Status: Chronic Assessment and Plan: Patient has a history of end-stage renal disease on hemodialysis, with AV fistulae pt to have dialysis today nephrology rounding (6) DM2 (diabetes mellitus, type 2): Code(s): E11.9 - Type 2 diabetes mellitus without complications Status: Chronic Assessment and Plan: Will add Accu-Cheks and sliding scale insulin (7) Anemia of chronic disease: Code(s): D63.8 - Anemia in other chronic diseases classified elsewhere Status: Chronic Assessment and Plan: Anemia of chronic disease (8) CHF (congestive heart failure): Qualifiers: Heart failure chronicity: unspecified Heart failure type: unspecified Qualified Code(s): I50.9 - Heart failure, unspecified Code(s): I50.9 - Heart failure, unspecified Status: Chronic Assessment and Plan: Pt has history of CHF will need Echocardiogram this admission Echo from last year shows - mild LVH. Mod , mild aortic regurgitation, mild mitral regurg. (9) Elevated troponin: Code(s): R77.8 - Other specified abnormalities of plasma proteins Status: Acute Assessment and Plan: Elevated troponin likley not due to ischemic demand ? chronic kidmey disease (10) DVT prophylaxis: Code(s): Z29.9 - Encounter for prophylactic measures, unspecified Status: Acute Assessment and Plan: Heparin SQ (11) Dietary counseling and surveillance: Code(s): Z71.3 - Dietary counseling and surveillance Status: Acute Assessment and Plan: ? for tube feeds DS: Summary Hospital Course Reason for hospitalization: Shortness of breath. Hospital Course: Please refer to admission H&P. Briefly, this is a 70 year old male with a history of end-stage renal disease on dialysis, coronary artery disease with stent placement 3 years ago on dual anti platelet therapy, type 2 diabetes, hypertension, and anxiety who presented to [facility] ED was transferred here for higher level of care and dialysis. Pt had life alert button on and pressed it because he felt sob. Pt presented to [facility] few days ago with similar complaints and again yesterday. Pt was transferee from [facility] ED to here last night. (1) Encephalopathy: Code(s): G93.40 - Encephalopathy, unspecified Status: Acute
--- NOTE | 2021-08-12 16:08 | PC.NURSE ---
Called son back per care coordination dialysis ride may not be available tomorrow, son aware.
[2021-08-12 16:21] LABS: Glucose Point of Care 103 mg/dl (65-105)
--- NOTE | 2021-08-12 17:36 | PC.NURSE ---
palomares removed per Md Benoit.
--- NOTE | 2021-10-16 17:23 | PC.NURSE ---
Found valuables envelope in safe. Called POA and left voicemail.
== END 2021-08-12 17:00 | disposition home or self-care (01) | DRG 640 ==
LOC: ANHED 06:32 → ANHICU 06:35 → ANH3MEDSUR 08-11 07:28 → ANHICU 08-13 08:36
PROVIDERS: Internal Medicine; Internal Medicine Nephrology; Admitting Provider Internal Medicine; Emergency Provider Emergency Medicine; PCP Family Medicine; Visit Provider Hospitalist
DX: E87.79 Other fluid overload (principal); N18.6 End stage renal disease; J18.9 Pneumonia, unspecified organism; J96.20 Acute and chronic respiratory failure, unspecified whether with hypoxia or hypercapnia; I13.2 Hypertensive heart and chronic kidney disease with heart failure and with stage 5 chronic kidney disease, or end stage renal disease; G93.40 Encephalopathy, unspecified; E11.22 Type 2 diabetes mellitus with diabetic chronic kidney disease; Z20.822 Contact with and (suspected) exposure to COVID-19; N25.0 Renal osteodystrophy; I25.10 Atherosclerotic heart disease of native coronary artery without angina pectoris; D63.1 Anemia in chronic kidney disease; I50.9 Heart failure, unspecified; E78.5 Hyperlipidemia, unspecified; F17.210 Nicotine dependence, cigarettes, uncomplicated; F41.1 Generalized anxiety disorder; G47.30 Sleep apnea, unspecified; Z96.642 Presence of left artificial hip joint; Z99.2 Dependence on renal dialysis; Z95.5 Presence of coronary angioplasty implant and graft; Z90.49 Acquired absence of other specified parts of digestive tract; Z98.42 Cataract extraction status, left eye; Z98.41 Cataract extraction status, right eye
CPT/HCPCS: 36415; 36600; 70450; 71045; 80053; 80069; 81001; 82140; 82375; 82550; 82805; 82948; 83050; 83605; 83735; 83880; 84100; 84484; 85025; 85055; 85610; 85730; 87040; 87086; 92526; 92610; 93005; 93306; 94003; 94640; 96365; 96366; 96367; 96368; 97110; 97116; 97162; 97165; 97535; 99285; A9270; C9113; C9803; G0257; G0378; J0360; J0456; J0696; J1644; J2060; J2250; J2704; J7030; U0003; U0005

== ENCOUNTER 2021-08-24 07:53 | Inpatient (IN) | payer OTHER, MEDICAID, SELFPAY ==
[2021-08-24] VITALS (34 sets, daily range): BP systolic 97–166; BP diastolic 32–76; PULSE 68–116; RESP 18–119; TEMP 0–36.8; O2SAT 76–100; BMI 26.4
--- NOTE | ~2021-08-24 | CT_ITS ---
EXAMINATION: CT chest abdomen pelvis wo con DATE: 08/28/2021 09:34 INDICATION: Sepsis TECHNIQUE: Transaxial computed tomographic images of the chest, abdomen, and pelvis were obtained aft er the administration of 100 cc of Omnipaque 350 intravenous contrast. The dose-length product (DLP) was 1519.86 mGy-cm. Automated exposure control and iterative reconstruction technique were employed. COMPARISON: 04/28/2021 FINDINGS: CHEST CT: There are moderate-sized right and small left pleural effusions. Cardiomegaly is noted. There is calc ified coronary artery atherosclerosis. Dependent airspace opacities are present. There are patchy opa cities of the lung apices. There is enlargement of the main and central pulmonary arteries, consisten t with pulmonary hypertension. There is mediastinal and bilateral supraclavicular lymphadenopathy. Th ere are bridging osteophytes at multiple levels in the spine, consistent with diffuse idiopathic skel etal hyperostosis (DISH). ABDOMEN/PELVIS CT: Punctate calcifications of the liver and spleen are consistent with old granulomatous disease. The ga llbladder is absent. The pancreas and adrenal glands are normal. Nonobstructing stones of the kidneys measure up to 2 mm. Cysts of the kidneys measure up to 3 cm on the left. There is a small volume of abdominal and pelvic ascites. There is calcified atherosclerosis of the aorta and many of the other a rteries. No pathologically enlarged abdominal or pelvic lymph nodes are identified. There is circumfe rential wall thickening of the urinary bladder. Colonic diverticulosis is present without evidence of diverticulitis. IMPRESSION: 1. Moderate size right and small left pleural effusions with passive atelectasis. Patchy opacities of the lung apices, consistent with atelectasis versus pneumonia. 2. Small volume of abdominal and pelvic ascites 3. Circumferential wall thickening of the urinary bladder, consistent with cystitis versus chronic ou tlet obstruction. 4. Thoracic lymphadenopathy which may be reactive. Reviewed, dictated and finalized at location A. [employer] IMPRESSION: 1. Moderate size right and small left pleural effusions with passive atelectasi s. Patchy opacities of the lung apices, consistent with atelectasis versus pneu monia. 2. Small volume of abdominal and pelvic ascites 3. Circumferential wall thickening of the urinary bladder, consistent with cyst itis versus chronic outlet obstruction. 4. Thoracic lymphadenopathy which may be reactive.
--- NOTE | ~2021-08-24 | XR_ITS ---
EXAMINATION: XR chest 1V portable DATE: 08/24/2021 08:19 INDICATION: Shortness of breath. TECHNIQUE: A single frontal view of the chest was obtained. COMPARISON: Chest single view 08/10/2021, chest CT 04/28/2021 FINDINGS: There is a diffuse interstitial pattern in the lungs. There are mild airspace opacities in the lower lung zones. No pleural effusion or pneumothorax. Cardiomegaly is noted. There is a vascular stent overlying left shoulder. IMPRESSION: 1. Diffuse lung disease, likely mild pulmonary edema. 2. Cardiomegaly. Reviewed, dictated and finalized at location A. [employer]
--- NOTE | 2021-08-24 07:54 | ECG_ITS ---
Measurements Intervals [place] Rate: 114 P: 220 TX: 173 QRS: -3 QRSD: 120 T: 84 QT: 317 QTc: 437 Interpretive Statements SINUS OR ECTOPIC ATRIAL TACHYCARDIA VENTRICULAR PREMATURE COMPLEX INTRAVENTRICULAR CONDUCTION DELAY LEFT VENTRICULAR HYPERTROPHY AND ST-T CHANGE CANNOT RULE OUT SEPTAL INFARCT, AGE INDETERMINATE CONSIDER INFERIOR INFARCT, AGE INDETERMINATE BORDERLINE ST-T WAVE ABNORMALITY- LAT/HIGH LAT LEADS BASELINE WANDER- I, II, AVR, AVL, AVF, V4-V6 ABNORMAL ECG Electronically Signed On 08-24-2021 8:54:04 [employer] by Romaine Rivers D.O.
[2021-08-24] MEDS: FUROSEMIDE INJ 40 MG/4 ML VIAL IV PUSH (08:03)
[2021-08-24 08:15] LABS: Basophils Absolute Auto 0.1 K/mm3 (0.0-0.1); Basophils Percent Auto 0.3 % (0.2-1.2); Eosinophils Absolute Auto 0.3 K/mm3 (0-0.3); Eosinophils Percent Auto 1.4 % (0-4.4); Hemoglobin 9.6 g/dL (14.0-18.0); Immature Granulocyte Absolute 0.16 K/mm3 (0.00-0.031); Immature Granulocyte Percent A 0.8 % (0-0.5); Lymphocytes Absolute Auto 2.13 K/mm3 (0.9-3.2); Lymphocytes Percent Auto 10.3 % (18.3-44.2); Mean Corpuscular Hemoglobin 27.9 pg (26-34); Mean Platelet Volume 11.3 fl (7.4-10.4); Neutrophils Absolute Auto 17.1 K/mm3 (1.3-6.7); Neutrophils Percent Auto 82.2 % (45.5-73.1); Platelet Count Result 284 k/mm3 (150-375); Red Blood Count 3.44 M/mm3 (4.6-6.20); Red Cell Distribution Width 18.1 % (11.5-14.5); White Blood Count 20.7 K/mm3 (4.5-10.0)
--- NOTE | 2021-08-24 08:16 | PM.CNNEP ---
Assessment and Plan Assessment and plan (1) End stage renal disease: Code(s): N18.6 - End stage renal disease Status: Chronic Assessment and Plan: William has shortness of breath. He has got coarse breath sounds. His oxygen level is low. His chest x-ray shows pulmonary edema and cardiomegaly. It seems that he cannot make it the 3 days between Wednesday and Wednesday. I asked him if he want to go for times week dialysis as an outpatient but he says no. The other option is to dialyze on Wednesday than when he gets in trouble on Wednesday he can just go to the outpatient dialysis center. He does not seem to have a whole lot of swelling. I wonder if his cardiac condition is lessening his tolerance for fluid. His echocardiogram done in July shows normal LV function, diastolic dysfunction, but no specific valvular issues. There is a diagnosis of aortic stenosis in his chart but I am not sure where that comes from. His troponins are mildly elevated but this is the way they always are so I do not think there is any ischemic issues going on. Will go ahead and dialyze in today. I let the nurse know he is here. I wrote orders. (2) Shortness of breath: Code(s): R06.02 - Shortness of breath Status: Acute Assessment and Plan: The patient has volume overload. We will tied take as much fluid off as possible. Perhaps he needs a drop in dry weight or perhaps he needs a 4th treatment per week. (3) Suspected sleep apnea: Code(s): R29.818 - Other symptoms and signs involving the nervous system Status: Acute Assessment and Plan: The patient has not made an appointment with Pulmonary or gotten a sleep test done. He just has not gotten around to it. Consider having pulmonary see him while he is here? (4) Coronary artery disease: Code(s): I25.10 - Atherosclerotic heart disease of [place] coronary artery without angina pectoris Status: Acute Assessment and Plan: He is not having any chest pain. Troponins are stable. (5) Elevated troponin: Code(s): R77.8 - Other specified abnormalities of plasma proteins Status: Acute Assessment and Plan: Stable. Most likely due to chronic kidney disease. (6) Anemia: Code(s): D64.9 - Anemia, unspecified Status: Acute Assessment and Plan: Hemoglobin is 9.6. Will give Epogen. (7) DM2 (diabetes mellitus, type 2): Code(s): E11.9 - Type 2 diabetes mellitus without complications Status: Chronic Assessment and Plan: Management per ho History of Present Illness Reason for Consult Consult date: 08/24/21 Chief Complaint Chief complaint: Acute Pulmonary Edema, Dialysis Patient History of Present Illness Narrative: William is a very pleasant 70-year-old gentleman who has multiple medical problems including end-stage renal disease on dialysis Wednesdays and Fridays, hypertension, coronary disease, current cigarette user, GERD, restless legs, hyperlipidemia, anxiety, anemia of chronic kidney disease, renal osteodystrophy, suspected sleep apnea. The patient came in the hospital because in the wee hours of the morning he woke up short of breath. This continued to get worse and so he came to the ER. He has been in and out of hospitals the last few months with shortness of breath and volume overload. He had dialysis on Wednesday. He says he got down to his dry weight. He he says he did not really drink that much fluid. He has had no chest pain. No nausea vomiting diarrhea constipation. No fevers or chills. No cough He is not on any new medications since he left the last time. Review of Systems Constitutional: Constitutional: Reports no additional constitutional complaints Eyes: Eyes: Reports no additional eye complaints ENT: Reports system reviewed and no additional complaints, except as documented Cardiovascular: Cardiovascular:
[2021-08-24 08:18] LABS: Alveolar/Arterial O2 Gradient 335.8 mmHg; Base Excess ABG 0.6 mEq/l (+/-2.0); Fractional Inspired Oxygen 60 %; Oxygen Content ABG 9.6 %vol (16.0-22.0); PCO2 ABG 45.3 mmHg (35.0-45.0); Total Hemoglobin 9.3 g/dL (12.0-18.0); pH ABG 7.376 (7.350-7.450)
[2021-08-24 08:19] LABS: Alanine Aminotransferase 16 U/L (4-50); Albumin Level 4.2 g/dL (3.5-5.1); Alkaline Phosphatase 174 U/L (38-126); Anion Gap 19 mmol/L (8-16); Aspartate Amino Transferase 25 U/L (17-59); Bilirubin,Total 0.6 mg/dL (0.2-1.3); Blood Urea Nitrogen 26 mg/dL (9-20); Calcium 8.4 mg/dL (8.4-10.2); Carbon Dioxide 27 mmol/L (22-30); Chloride 92 mmol/L (98-107); Estimated Glomerular Filt Rate 8; Glucose 201 mg/dL (65-110); Potassium 3.9 mmol/L (3.4-5.0); Sodium 138 mmol/L (137-145)
[2021-08-24 08:20] LABS: Partial Thromboplastin Time 29.7 SECONDS (22.3-36.8)
[2021-08-24 08:22] LABS: Oxygen Saturation ABG 76.4 % (95.0-100.0); Oxyhemoglobin 73.5 % THb (90.0-100.0); PO2 ABG 42.2 mmHg (80.0-100.0)
[2021-08-24 08:25] LABS: INR 1.1; Prothrombin Time 13.3 Seconds (11.1-14.7)
[2021-08-24 08:32] LABS: NT Pro B Type Natriuretic Pept > 35000 pg/mL (5-100); Troponin I 0.221 ng/mL (0.000-0.034)
[2021-08-24 08:33] LABS: Lactic Acid Reflex 5.9 mmol/L (0.7-2.1)
[2021-08-24 08:41] LABS: Alveolar/Arterial O2 Gradient 306.8 mmHg; Base Excess ABG 0.7 mEq/l (+/-2.0); Fractional Inspired Oxygen 60 %; HCO3 ABG 25.7 mEq/l (22.0-26.0); Oxygen Content ABG 11.7 %vol (16.0-22.0); Oxygen Saturation ABG 94.8 % (95.0-100.0); Oxyhemoglobin 91.3 % THb (90.0-100.0); PCO2 ABG 42.7 mmHg (35.0-45.0); PO2 FiO2 Ratio Arterial Blood 1.23 %; Site Drawn RIGHT RADIAL; pH ABG 7.397 (7.350-7.450)
[2021-08-24 08:42] LABS: Device NON-INVASIVE VENT; Modified Allen's Test Pass; Non-Invasive Expiratory Pressure 6 CMH2O; Non-Invasive Inspiratory Pressure 14 CMH2O; Non-Invasive Vent Rate 16 /MIN
--- NOTE | 2021-08-24 09:01 | ED.SOB ---
HPI - SOB/Dyspnea General Chief Complaint: Shortness of Breath/Dyspnea Stated Complaint: sob Source: patient, EMS and RN notes reviewed Mode of arrival: EMS Limitations: clinical condition History of Present Illness HPI Narrative: Patient presents with sudden onset of shortness of breath few hours prior to arrival by ambulance. Last dialysis was 2 days ago, patient had similar history and was intubated last time. Currently patient on BiPAP with good oxygenation. Patient is full code Related Data Home Medications Medication Instructions Recorded Confirmed aspirin 81 mg PO DAILY 04/23/21 08/24/21 buspirone 30 mg PO BID 04/23/21 08/24/21 cholecalciferol (vitamin D3) 50 mcg PO EVERY OTHER DAY 04/23/21 08/24/21 [Vitamin D3] cholecalciferol (vitamin D3) 100 mcg PO EVERY OTHER DAY 04/23/21 08/24/21 [Vitamin D3] clonidine HCl 0.1 mg PO TID 04/23/21 08/24/21 clopidogrel 75 mg PO DAILY 04/23/21 08/24/21 docusate sodium 100 mg PO DAILY 04/23/21 08/24/21 finasteride 5 mg PO HS 04/23/21 08/24/21 furosemide 80 mg PO DAILY 04/23/21 08/24/21 imipramine HCl 25 mg PO HS 04/23/21 08/24/21 isosorbide mononitrate 30 mg PO DAILY 04/23/21 08/24/21 nicotine 1 patch TRANSDERMAL DAILY 04/23/21 08/24/21 omeprazole 20 mg PO BID 04/23/21 08/24/21 pregabalin 100 mg PO HS 04/23/21 08/24/21 quetiapine 100 mg PO HS 04/23/21 08/24/21 ropinirole 2 mg PO HS 04/23/21 08/24/21 rosuvastatin 10 mg PO DAILY 04/23/21 08/24/21 amlodipine 5 mg PO BID 08/05/21 08/24/21 losartan 50 mg PO DAILY 08/05/21 08/24/21 mirtazapine 15 mg PO HS 08/05/21 08/24/21 Allergies Allergy/AdvReac Type Severity Reaction Status Date / Time adhesive tape AdvReac Unknown Verified 08/24/21 08:18 ibuprofen AdvReac Unknown Verified 08/24/21 08:18 Review of Systems Review of Systems: CONSTITUTIONAL: Denies fever, chills, or sweats. EYES: Denies visual changes, redness, or discharge. ENT: Denies rhinorrhea, congestion, sore throat, or otalgia. CARDIOVASCULAR: Denies chest pain, palpitations, or edema. RESPIRATORY: Shortness of breath. GASTROINTESTINAL: Denies abdominal pain, nausea, vomiting, or diarrhea. GENITOURINARY: Denies dysuria or hematuria. SKIN: Denies rash or itching. MUSCULOSKELETAL: Denies back pain, joint pain, or myalgia. NEUROLOGIC: Denies headache, numbness, or weakness. PSYCHIATRIC: Denies anxiety or depression. [facility] Past Medical History Medical History Anemia of chronic disease AV fistula CHF (congestive heart failure) DM2 (diabetes mellitus, type 2) End-stage renal disease on hemodialysis Generalized anxiety disorder Hypertension Renal osteodystrophy Suspected sleep apnea Tobacco abuse Surgical History Surgical History Cataract extraction status H/O heart artery stent History of tonsillectomy History of total left hip arthroplasty Hx of cholecystectomy Family History Family History Sibling 2019 novel coronavirus-infected pneumonia (NCIP) Mother Heart disease congestive heart failure Father Heart disease Social History Social History Social History: Patient smokes 2 packs per day but does not drink alcohol. He lives at home alone. He would like to be a full code. If he was unable to make decisions for himself he would like his son William Adams to make decisions for him. 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
[2021-08-24 11:12] LABS: Reflex Lactic Acid Yes or No Add Lactic
[2021-08-24 11:55] LABS: Device NON-INVASIVE VENT; Modified Allen's Test Pass; Site Drawn RIGHT RADIAL
[2021-08-24 11:56] LABS: Lactic Acid 1.3 mmol/L (0.7-2.1)
[2021-08-24 11:56] LABS: Non-Invasive Expiratory Pressure 6 CMH2O; Non-Invasive Inspiratory Pressure 14 CMH2O; Non-Invasive Vent Rate 14 /MIN
--- NOTE | 2021-08-24 12:10 | ADMGEN ---
This patient, William Valentin, was admitted to IMU Room 213- 1110. Patient/family oriented to hospital policies and general routines including ID bracelet, bed and alarms, visiting hours, pain management, procedures, bathroom and other care routines, personal items, smoking policy, room service/diet, and visiting hours. Information on how to activate the Rapid Response Team has been discussed. Patient/Family are encouraged to report perceived risks to care and to ask questions if they do not understand what they are told or what they should do.
[2021-08-24 12:13] LABS: Troponin I 0.491 ng/mL (0.000-0.034)
--- NOTE | 2021-08-24 12:16 | PC.NURSE ---
Notified Dr. Willoughby of critical troponin 0.491
--- NOTE | 2021-08-24 13:53 | PM.CNCAR ---
Assessment and Plan Assessment and plan (1) Acute on chronic diastolic CHF (congestive heart failure): Code(s): I50.33 - Acute on chronic diastolic (congestive) heart failure Status: Acute Assessment and Plan: Secondary to volume overload and diastolic dysfunction. Dr. Ansari notes that the patient has a difficult time going from Wednesday to Wednesday without dialysis. Although he has elevated troponins, his stress test showed fixed defects so it is unlikely that if he were to have a cardiac catheterization we would find any reversible cause. Ejection fraction runs about 47% to 65% on past studies. (2) Elevated troponin: Code(s): R77.8 - Other specified abnormalities of plasma proteins Status: Acute Assessment and Plan: Patient has chronically elevated troponins every admission, due to nonischemic cardiac injury and end-stage renal disease. (3) CAD (coronary artery disease): Code(s): I25.10 - Atherosclerotic heart disease of [place] coronary artery without angina pectoris Status: Acute Assessment and Plan: History of PCI in the past. Patient has not seen his superintendent [employer] stations in [place] for quite some time. He cannot recall the doctor's name. (4) Aortic stenosis: Code(s): I35.0 - Nonrheumatic aortic (valve) stenosis Status: Acute Assessment and Plan: Mild aortic stenosis. (5) End stage renal disease: Code(s): N18.6 - End stage renal disease Status: Chronic Assessment and Plan: End-stage renal disease getting dialysis today (6) Tobacco abuse: Code(s): Z72.0 - Tobacco use Status: Chronic Assessment and Plan: Ongoing smoking History of Present Illness History of Present Illness Consult date/time: 08/24/21 13:53 Requesting physician: Amelia Willoughby MD Consult reason: Other (Elevated troponin) Reason For Visit: Acute Pulmonary Edema, Dialysis Patient Narrative: William Valentin (pronounded Haleigh ) is a 70-year-old male whom we are asked to see at the request of Dr. Blackman for advice and opinion regarding his elevated troponin in consultation. The patient has a history of CAD and PCI and aortic stenosis, followed by [employer] in [place]. He also has COPD with multiple admissions last year for shortness of breath, and he is on hemodialysis. History of hypertension and diabetes. We saw this patient in April 2021 when he was admitted with shortness of breath and elevated troponins. His troponins consistently run in the 0.3 to 0.5 range.. Lexiscan at that time in April 2021 showed a small infarct of the inferior wall and a large infarct of the anterior and anterolateral segments, EF 47%. Since there was no reversible ischemia he was continued on medical therapy. He was admitted in July 2021 with respiratory failure requiring intubation. Mr Valentin (who is a little fuzzy on details) says he was just discharged from [facility] a few days ago for the same thing. The patient was fine last night but woke up feeling somewhat short of breath. This got worse when he sat on his couch and he called an ambulance. Last dialysis was 2 days ago, on Wednesday. He was placed on BiPAP. He will be dialyzed today. Blood pressure is generally well controlled. He states he is compliant with his fluid restriction. He does have some right-sided chest tightness which he associates with anxiety. He is requesting his anxiety and pain medications. No palpitations. No exertional chest tightness. No edema. He has seen a superintendent [employer] stations and [place] but has not seen him for a long time as it is too far to drive. It appears that Entresto has been added to his home medications since his last discharge in July. Review of Systems Constitutional: Constitutional: Reports fatigue Eyes: Eyes: Reports no additional eye complaints ENT: Denies epistaxis Cardiovascular: Cardiovascular: Reports chest
[2021-08-24] MEDS: busPIRone HCL 5 MG TABLET 15 MG PO (15:30)
[2021-08-24] MEDS: HYDROcodone/acetaminophen (*CRX) 7.5-325 MG TABLET 1 TAB PO ×2 (15:30→21:06)
--- NOTE | 2021-08-24 15:32 | PM.IMHP ---
H&P: HPI History of Present Illness Date/Time: 08/24/21 1145 this is a 70-year-old male patient has history of congestive heart failure and end-stage renal disease. He has dialysis on Wednesday and Wednesday face the. Patient stated he has not missed any dialysis. His last dialysis treatment was this past Wednesday. The patient came to the emergency with sudden of shortness of of few hours to ambulance. Patient has a history of being intubated in the past. The patient is currently on a BiPAP good oxygenation. The patient is a full code. Cardiology has been consulted and has already seen the patient. Cardiology noted that his stress test showed fixed FX so it is unlikely that if he were to have a cardiac catheterization he would find any reversible cause. Suggestion fraction 47 % to 65% on past studies. His white count is noted to be 20.7 today and his H&H is 9.6 and 32.0. Which is slightly lower than his baseline. Patient denies any active bleeding. Patient's anion gap is 19. BUN is 26 creatinine 6.5. Troponin is 0.491. The patient is a dialysis patient and his troponins are chronically elevated. His BNP is listed as greater than 35,000 which is his baseline. The patient is currently on a BiPAP and was given IV Lasix in the emergency room. Nephrology has been consulted as well the patient was given IV fluids x2 L. the patient was also given albumin. The patient's blood pressure has been running low. This appears to be the patient's baseline. The patient is being admitted to inpatient services on the date of service 08/24/2021 Chief Complaint: Shortness of breath Review of Systems Review of Systems: All systems reviewed & are unremarkable except as noted in HPI and below Constitutional: Constitutional: Reports as per HPI and Reports no additional constitutional complaints Eyes: Eyes: Reports as per HPI and Reports no additional eye complaints ENT: Reports system reviewed and no additional complaints, except as documented and Reports Normal hearing present Cardiovascular: Cardiovascular: Reports no additional cardiovascular complaints Respiratory: Respiratory: Reports no additional respiratory complaints and Reports no additional respiratory complaints Gastrointestinal: Gastrointestinal: Reports as per HPI and Reports no additional gastrointestinal complaints Musculoskeletal: Musculoskeletal: Reports no additional musculoskeletal complaints Integumentary/Breasts: Skin/Breast: Reports system reviewed and no additional complaints, except as docu and Reports as per HPI Neurologic: Reports system reviewed and no additional complaints, except as documented, Reports as per HPI and Reports Normal hearing present Psychiatric: Psychiatric: Reports no additional psychiatric complaints and Reports as per HPI Endocrine: Endocrine: Reports no additional endocrine complaints Hematologic/Lymphatic: Hematologic/Lymphatic: Reports no additional hematologic/lymphatic complaints Allergic/Immunologic: Allergic/Immunologic: Reports no additional allergic/immunologic complaints [facility] Past Medical History Medical History (Updated 08/24/21 @ 15:47 by Alaina Mills NP) Anemia of chronic disease Aortic stenosis AV fistula CAD (coronary artery disease) CHF (congestive heart failure) Chronic back pain DM2 (diabetes mellitus, type 2) End-stage renal disease on hemodialysis Generalized anxiety disorder Hypertension Renal osteodystrophy Suspected sleep apnea Tobacco abuse Surgical History Surgical History (Updated 08/24/21 @ 15:48 by Alaina Mills NP) Cataract extraction status H/O heart artery stent History of tonsillectomy History of total knee arthroplasty Left Hx of cholecystectomy Family History Family History Sibling 2019 novel coronavirus-infected pneumonia (NCIP) Mother Heart disease congestive heart failure Father Heart disease
[2021-08-24 17:10] LABS: Hepatitis B Surface Antigen Negative (Negative)
[2021-08-24 17:28] LABS: Hepatitis B Surface Anti Res Positive
[2021-08-24] MEDS: PANTOPRAZOLE 40 MG TABLET PO (18:10)
[2021-08-24] MEDS: cloNIDine HCL 0.1 MG TABLET PO (18:11)
[2021-08-24] MEDS: NICOTINE (*PBKC) 21 MG PATCH 1 PATCH TRANSDERM (18:12)
[2021-08-24 20:24] LABS: Glucose Point of Care 167 mg/dl (65-105)
[2021-08-24] MEDS: busPIRone HCL 10 MG TABLET 30 MG PO (20:40)
[2021-08-24] MEDS: FINASTERIDE 5 MG TABLET PO (20:41)
[2021-08-24] MEDS: IMIPRAMINE HCL 25 MG TABLET PO (20:42)
[2021-08-24] MEDS: MIRTAZAPINE 15 MG TABLET PO (20:43)
[2021-08-24] MEDS: QUEtiapine FUMARATE 100 MG TABLET PO (20:45)
[2021-08-24] MEDS: rOPINIRole HCL 1 MG TABLET 3 MG PO (20:46)
[2021-08-24] MEDS: SACUBITRIL/VALSARTAN 49-51 MG TABLET 1 TABLET PO (20:48)
[2021-08-24] MEDS: ALBUTEROL SULFATE (*SP) AEROSOL 1 PUFF INHALATION (20:48)
[2021-08-24] MEDS: PREGABALIN (*CRX) 50 MG CAPSULE 100 MG PO (20:53)
--- NOTE | 2021-08-24 20:55 | PCRCNOTE ---
Pt states that he does not want to use BiPAP at this time. Pt was advised to call the nurse if he wants to use the BiPAP.
[2021-08-25] VITALS (19 sets, daily range): BP systolic 114–143; BP diastolic 35–65; PULSE 70–92; RESP 18–32; TEMP 35.6–36.8; O2SAT 93–100
[2021-08-25 05:19] LABS: Basophils Percent Auto 0.2 % (0.2-1.2); Eosinophils Absolute Auto 0.1 K/mm3 (0-0.3); Eosinophils Percent Auto 1.1 % (0-4.4); Hematocrit 28.9 % (42.0-52.0); Hemoglobin 8.6 g/dL (14.0-18.0); Immature Granulocyte Absolute 0.07 K/mm3 (0.00-0.031); Immature Granulocyte Percent A 0.6 % (0-0.5); Lymphocytes Absolute Auto 0.71 K/mm3 (0.9-3.2); Lymphocytes Percent Auto 5.8 % (18.3-44.2); Mean Corpuscular HGB Conc 29.8 g/dl (32-36); Mean Corpuscular Hemoglobin 27.6 pg (26-34); Mean Corpuscular Volume 92.6 fl (80-100); Mean Platelet Volume 11.1 fl (7.4-10.4); Monocytes Absolute Auto 0.5 K/mm3 (0.1-0.6); Monocytes Percent Auto 3.9 % (2.6-8.5); Neutrophils Absolute Auto 10.8 K/mm3 (1.3-6.7); Neutrophils Percent Auto 88.4 % (45.5-73.1); Platelet Count Result 188 k/mm3 (150-375); Red Blood Count 3.12 M/mm3 (4.6-6.20); Red Cell Distribution Width 18.6 % (11.5-14.5); White Blood Count 12.2 K/mm3 (4.5-10.0)
[2021-08-25 05:52] LABS: Albumin Level 4.5 g/dL (3.5-5.1); Anion Gap 19 mmol/L (8-16); Blood Urea Nitrogen 40 mg/dL (9-20); Calcium 8.7 mg/dL (8.4-10.2); Carbon Dioxide 27 mmol/L (22-30); Chloride 89 mmol/L (98-107); Estimated CRCL calculation 8 ml/min; Estimated Glomerular Filt Rate 7; Glucose 128 mg/dL (65-110); Lactate Dehydrogenase 634 U/L (313-618); Phosphorus 6.9 mg/dL (2.5-4.5); Potassium 3.8 mmol/L (3.4-5.0); Sodium 135 mmol/L (137-145)
[2021-08-25 05:57] LABS: CRP 15.9 mg/dL (<1.0)
[2021-08-25 06:30] LABS: Thyroid Stimulating Hormone Reflex 0.531 uIU/mL (0.465-4.68)
--- NOTE | 2021-08-25 07:11 | PM.PNNEP ---
Progress Note: A&P Assessment and Plan (1) End stage renal disease: Code(s): N18.6 - End stage renal disease Status: Chronic Assessment and Plan: William has shortness of breath. He has got coarse breath sounds. His oxygen level is low. His chest x-ray showed pulmonary edema and cardiomegaly. He received dry ultrafiltration yesterday and we removed a little more than 3L. He is feeling much better today. He says that he is not eating as well as he used to eat. And he has been losing weight because his clothes are too big for him. I suspect that he is in the hospital because his dry weight needs to be adjusted down words and if they do not adjust the dry weight than his fluid builds up. His primary care physician started him on Entresto. I am not sure the value of this because his ejection fraction is normal. But it is a good antihypertensive as well. His admission med said he is also on losartan which he should not be if he is on Entresto. Losartan was not continued in the hospital. I will try reaching out to for sending EOS to let them know they need to reduce his dry weight. Will dialyze him today. He has an appointment with his primary care physician tomorrow if he gets [place] here today. (2) Shortness of breath: Code(s): R06.02 - Shortness of breath Status: Acute Assessment and Plan: This is better with the fluid off. (3) Suspected sleep apnea: Code(s): R29.818 - Other symptoms and signs involving the nervous system Status: Acute Assessment and Plan: The patient has not made an appointment with Pulmonary or gotten a sleep test done. He just has not gotten around to it. Consider having pulmonary see him while he is here? (4) Coronary artery disease: Code(s): I25.10 - Atherosclerotic heart disease of [place] coronary artery without angina pectoris Status: Acute Assessment and Plan: He is not having any chest pain. Troponins are stable. (5) Elevated troponin: Code(s): R77.8 - Other specified abnormalities of plasma proteins Status: Acute Assessment and Plan: Stable. Most likely due to chronic kidney disease. (6) Anemia: Code(s): D64.9 - Anemia, unspecified Status: Acute Assessment and Plan: Hemoglobin is 9.6. on Epogen. (7) DM2 (diabetes mellitus, type 2): Code(s): E11.9 - Type 2 diabetes mellitus without complications Status: Chronic Assessment and Plan: Management per ho Subjective Date/time seen: 08/25/21 07:11 Interval history: William is feeling better today. Less short of breath. No chest pain. Review of Systems Cardiovascular: Cardiovascular: Reports no additional cardiovascular complaints Respiratory: Respiratory: Reports no additional respiratory complaints Gastrointestinal: Gastrointestinal: Reports no additional gastrointestinal complaints Genitourinary: Genitourinary: Reports no additional male genitourinary complaints Exam Narrative: WDWN in NAD skin no rash head ncat lungs clear cor reg no rub . 2/6 [place]. abd BS+ nontender and soft ext no edema. Objective Data Vital Signs Vital Signs: Vital Signs - 24 hr 08/24/21 07:55 08/24/21 08:11 08/24/21 08:17 Temperature 36.4 C L Pulse Rate 116 H 91 Respiratory Rate 32 H 119 H Blood Pressure 120/45 L 110/56 L Pulse Oximetry 95 95 94 08/24/21 08:24 08/24/21 08:25 08/24/21 08:49 Temperature Pulse Rate 93 82 76 Respiratory Rate 27 H 20 Blood Pressure 97/49 L Pulse Oximetry 94 100 08/24/21 09:35 08/24/21 11:20 08/24/21 12:00 Temperature 36.7 C Pulse Rate 68 78 71 Respiratory Rate 18 22 H 24 H Blood Pressure 111/51 L 116/49 L Pulse Oximetry 100 95 76 L 08/24/21 13:21 08/24/21 13:46 08/24/21 13:49 Temperature 36.7 C Pulse Rate 76 81 81 Respiratory Rate 24 H 23 H 23 H Blood Pressure 116/49 L Pulse Oximetry 76 L 100 100 02
[2021-08-25 08:10] LABS: Glucose Point of Care 113 mg/dl (65-105)
[2021-08-25] MEDS: SACUBITRIL/VALSARTAN 49-51 MG TABLET 1 TABLET PO ×2 (08:15→20:53)
[2021-08-25] MEDS: PANTOPRAZOLE 40 MG TABLET PO ×2 (08:15→17:32)
[2021-08-25] MEDS: NICOTINE (*PBKC) 21 MG PATCH 1 PATCH TRANSDERM (08:15)
[2021-08-25] MEDS: ROSUVASTATIN 10 MG TABLET PO (08:15)
[2021-08-25] MEDS: FUROSEMIDE 80 MG TABLET PO (08:16)
[2021-08-25] MEDS: DOCUSATE SODIUM 100 MG CAPSULE PO (08:16)
[2021-08-25] MEDS: ISOSORBIDE MONONITRATE 30 MG TAB.ER.24H PO (08:16)
[2021-08-25] MEDS: CLOPIDOGREL BISULFATE 75 MG TABLET PO (08:16)
[2021-08-25] MEDS: cloNIDine HCL 0.1 MG TABLET PO ×3 (08:17→17:32)
[2021-08-25] MEDS: busPIRone HCL 10 MG TABLET 30 MG PO ×2 (08:18→20:48)
[2021-08-25] MEDS: CHOLECALCIFEROL 1,000 UNITS TABLET 4000 UNITS PO (08:18)
[2021-08-25] MEDS: ASPIRIN 81 MG ENTERIC TABLET PO (08:18)
--- NOTE | 2021-08-25 10:41 | P.CDI_ITS ---
CDI Query Clarification Request -Patient arrived with c/o Shortness of breath -Per ER nursing patient is on home O2 at 4 L -Patient was placed on BIPAP per EMS -08/24 ABG'S pH 7.376 pCO2 45.3 pO2 42.2 O2 sat 76.4 on BIPAP -Patient was on BIPAP 08/24 and currently on 3 L NC Please clarify if there is a corresponding diagnosis for above findings: * Acute on Chronic Respiratory failure * Acute Respiratory Failure * Chronic Respiratory Failure * Other * Unable to determine <Shaista Singleton - Last Filed: 08/25/21 10:52> Clarified Diagnosis (1) Acute and chronic respiratory failure with hypoxia: Code(s): J96.21 - Acute and chronic respiratory failure with hypoxia <Shaista Singleton - Last Filed: 08/25/21 10:52> Status: Acute <Shaista Singleton - Last Filed: 08/25/21 10:52>
--- NOTE | 2021-08-25 10:59 | PM.PNCARD ---
Progress Note: A&P Additional Plan 70-year-old man with: Coronary and aortic valve disease as well as end-stage renal disease on hemodialysis. Patient is admitted with some frequency with shortness of breath and volume overload. He has received extra dialysis and appears to be essentially euvolemic at this time and is comfortable clinically. Discussed the concept of a follow-up angiogram with him at some length. Patient states that he is having no chest pain and his most recent angiographic procedure done in [place] was extremely unpleasant or painful and does not wish to undergo that again at least at this time. Had a discussion with him about his cardiac follow-up. He is planning on moving into an assisted living facility in this area so he would like to follow-up with physicians in our practice going forward. For now his cardiac medical regimen should be continued and I will see that follow-up is scheduled in our office subsequent to discharge Diony Lund MD [facility] Subjective Date/time seen: Date of service: 08/25/21 10:59 Interval history: Follow-up visit in this 70-year-old man with: Coronary artery disease with previous interventional revascularization of the right coronary artery with care and follow-up elsewhere. Patient has had 2 or 3 recent admissions here with shortness of breath felt to be related to volume overload and his underlying chronic kidney disease and dependency on dialysis. Today he reports to be breathing better no chest pain, hoping to be discharged after he is dialyzed today. Long discussion with the patient about follow-up arrangements in terms of his plans to follow up with his established customer relationship specialist in [place] or this practice here at [place]. Also discussion with the patient today about the concept of follow-up catheterization which was mention by Dr. Shabazz over the weekend. Patient says that he is hopeful to be discharged and does not wish to proceed with follow-up angiogram at this time. Exam Narrative: Pleasant older male who is not in distress, waiting for dialysis today. Const: General: comfortable and no acute distress HENMT: General nose exam: no epistaxis Eyes: EOM: EOMs intact bilaterally Neck: Neck: supple and no JVD Thyroid: thyroid normal Carotids: no bruits Lymphatic: lymphadenopathy not noted Resp: Auscultation: rales (Bibasilar rales, slight tachypnea) Cardio: Rate: regular rate Rhythm: regular rhythm Heart sounds: Murmur heart sound present Other: Harsh 1-2/6 [place] at the mid sternal borders. Also a venous hum from his dialysis fistula heard in the left shoulder area GI: Inspection: non-distended Skin: General skin exam: no rashes or lesions noted Other: Dialysis fistula in the left upper extremity Neuro: Cognition (Neuro): normal cognition Speech: normal speech Extrem: General: no edema and no pedal edema Other: Dorsalis pedis pulses barely palpable Psych: Affect: Anxious affect present Objective Data Vital Signs Vital Signs: Vital Signs - 24 hr 08/24/21 11:20 08/24/21 12:00 08/24/21 13:21 Temperature 36.7 C 36.7 C Pulse Rate 78 71 76 Respiratory Rate 22 H 24 H 24 H Blood Pressure 116/49 L 116/49 L Pulse Oximetry 95 76 L 76 L 08/24/21 13:46 08/24/21 13:49 08/24/21 14:00 Temperature Pulse Rate 81 81 76 Respiratory Rate 23 H 23 H Blood Pressure Pulse Oximetry 100 100 08/24/21 14:40 08/24/21 14:45 08/24/21 15:00 Temperature 36.6 C Pulse Rate 84 98 101 H Respiratory Rate 22 H Blood Pressure 128/55 L 130/76 133/62 Pulse Oximetry 08/24/21 15:15 08/24/21 15:30 08/24/21 15:45 Temperature Pulse Rate 94 90 82 Respiratory Rate Blood Pressure 143/50 H 117/43 L 124/43 L Pulse Oximetry 08/24/21 16:00 08/24/21 16:15 08/24/21 16:30 Temperature Pulse Rate 78 70 70 Respiratory Rate Blood Pressure 133/33 L 97/32 L 117/40 L Pulse Oximetry 08/24/21 16:45 08/24/21 17:00 08/24/21 17
[2021-08-25 11:54] LABS: Glucose Point of Care 152 mg/dl (65-105)
--- NOTE | 2021-08-25 16:03 | PM.IMPN ---
Progress Note: A&P Assessment and Plan (1) Chronic back pain: Code(s): M54.9 - Dorsalgia, unspecified; G89.29 - Other chronic pain Status: Chronic (2) CAD (coronary artery disease): Code(s): I25.10 - Atherosclerotic heart disease of [place] coronary artery without angina pectoris Status: Chronic (3) Acute on chronic diastolic CHF (congestive heart failure): Code(s): I50.33 - Acute on chronic diastolic (congestive) heart failure Status: Acute (4) Elevated troponin: Code(s): R77.8 - Other specified abnormalities of plasma proteins Status: Acute (5) Acute respiratory failure: Qualifiers: Respiratory failure complication: unspecified whether with hypoxia or hypercapnia Qualified Code(s): J96.00 - Acute respiratory failure, unspecified whether with hypoxia or hypercapnia Code(s): J96.00 - Acute respiratory failure, unspecified whether with hypoxia or hypercapnia Status: Acute (6) Fluid overload: Qualifiers: Hypervolemia type: unspecified Qualified Code(s): E87.70 - Fluid overload, unspecified Code(s): E87.70 - Fluid overload, unspecified Status: Acute (7) Aortic stenosis: Code(s): I35.0 - Nonrheumatic aortic (valve) stenosis Status: Acute (8) DM2 (diabetes mellitus, type 2): Code(s): E11.9 - Type 2 diabetes mellitus without complications Status: Chronic (9) Generalized anxiety disorder: Code(s): F41.1 - Generalized anxiety disorder Status: Chronic (10) Hemodialysis patient: Code(s): Z99.2 - Dependence on renal dialysis Status: Acute (11) End stage renal disease: Code(s): N18.6 - End stage renal disease Status: Chronic (12) Suspected sleep apnea: Code(s): R29.818 - Other symptoms and signs involving the nervous system Status: Acute (13) Acute respiratory failure with hypoxia: Code(s): J96.01 - Acute respiratory failure with hypoxia Status: Acute Additional Plan 08/25/21 Patient doing better He reports that he is on 3 L of home O2 currently on 3 L Pending HD today Will follow up with his primary care physician with new appointment after he gets home Patient with elevated troponin seen by Cardiology he has declined cardiac catheterization Continue current care Anticipate discharge tomorrow after hemodialysis Subjective Date/time seen: 08/25/21 16:03 pt feeling ok says he is still waiting for his HD today and has canceled his PCP appointment Exam Narrative: GEN: NAD, AAOx3, cooperative chronically ill-appearing HEENT: NCAT, MMM, EOMI Neck: no JVD Heart: S1S2 RRR Lungs: CTA B/l Abd: soft, NT, ND, bowel sounds normoactive Ext: moves all, no cyanosis, no clubbing, no edema left AV fistula Neuro: Normal cognition no focal neurological deficit appreciated on gross physical examination cranial nerves intact Psych: Mood and affect congruent Objective Data Vital Signs Vital Signs: Vital Signs - 24 hr 08/24/21 16:15 08/24/21 16:30 08/24/21 16:45 Temperature Pulse Rate 70 70 70 Respiratory Rate Blood Pressure 97/32 L 117/40 L 117/38 L Pulse Oximetry 08/24/21 17:00 08/24/21 17:15 08/24/21 17:30 Temperature Pulse Rate 68 72 72 Respiratory Rate Blood Pressure 116/41 L 126/54 L 128/58 L Pulse Oximetry 08/24/21 17:45 08/24/21 17:52 08/24/21 18:00 Temperature 98.0 F Pulse Rate 68 72 85 Respiratory Rate 20 Blood Pressure 118/62 130/47 L Pulse Oximetry 08/24/21 20:00 08/24/21 20:50 08/24/21 22:00 Temperature 97.6 F Pulse Rate 87 81 95 Respiratory Rate 20 Blood Pressure 134/47 L Pulse Oximetry 97 97 08/24/21 22:20 08/24/21 23:49 08/25/21 00:00 Temperature 98.2 F Pulse Rate 81 70 70 Respiratory Rate 29 H 30 H Blood Pressure 115/49 L Pulse Oximetry 100 99 08/25/21 02:00 08/25/21 03:52 08/25/21 04:00 Temperature 98.1 F Pulse Rate 75 82 88 Respiratory Rate
[2021-08-25 16:28] LABS: Glucose Point of Care 177 mg/dl (65-105)
[2021-08-25 20:32] LABS: Glucose Point of Care 126 mg/dl (65-105)
[2021-08-25] MEDS: FINASTERIDE 5 MG TABLET PO (20:46)
[2021-08-25] MEDS: IMIPRAMINE HCL 25 MG TABLET PO (20:48)
[2021-08-25] MEDS: QUEtiapine FUMARATE 100 MG TABLET PO (20:51)
[2021-08-25] MEDS: MIRTAZAPINE 15 MG TABLET PO (20:51)
[2021-08-25] MEDS: rOPINIRole HCL 1 MG TABLET 3 MG PO (20:52)
[2021-08-25] MEDS: PREGABALIN (*CRX) 50 MG CAPSULE 100 MG PO (21:22)
[2021-08-26] VITALS (37 sets, daily range): BP systolic 87–137; BP diastolic 37–53; PULSE 60–100; RESP 17–27; TEMP 36.3–37.2; O2SAT 87–100
[2021-08-26 05:38] LABS: Albumin Level 3.5 g/dL (3.5-5.1); Anion Gap 11 mmol/L (8-16); Blood Urea Nitrogen 55 mg/dL (9-20); Calcium 7.8 mg/dL (8.4-10.2); Carbon Dioxide 28 mmol/L (22-30); Chloride 91 mmol/L (98-107); Estimated CRCL calculation 7 ml/min; Estimated Glomerular Filt Rate 6; Glucose 118 mg/dL (65-110); Phosphorus 7.8 mg/dL (2.5-4.5); Potassium 4.3 mmol/L (3.4-5.0); Sodium 130 mmol/L (137-145)
--- NOTE | 2021-08-26 08:00 | PM.PNNEP ---
Progress Note: A&P Assessment and Plan (1) End stage renal disease: Code(s): N18.6 - End stage renal disease Status: Chronic Assessment and Plan: William has shortness of breath. He has got coarse breath sounds. His oxygen level is low. His chest x-ray showed pulmonary edema and cardiomegaly. He was going to get dialysis yesterday but emergency put him off to today. I talked with dialysis nurse and she is going to do him this morning. (2) Shortness of breath: Code(s): R06.02 - Shortness of breath Status: Acute Assessment and Plan: This is better with the fluid off. Needs dry weight adjusted at the outpatient facility I believe.. (3) Suspected sleep apnea: Code(s): R29.818 - Other symptoms and signs involving the nervous system Status: Acute Assessment and Plan: The patient has not made an appointment with Pulmonary or gotten a sleep test done. He just has not gotten around to it. Consider having pulmonary see him while he is here? (4) Coronary artery disease: Code(s): I25.10 - Atherosclerotic heart disease of [place] coronary artery without angina pectoris Status: Acute Assessment and Plan: He is not having any chest pain. Troponins are stable. (5) Elevated troponin: Code(s): R77.8 - Other specified abnormalities of plasma proteins Status: Acute Assessment and Plan: Stable. Most likely due to chronic kidney disease. (6) Anemia: Code(s): D64.9 - Anemia, unspecified Status: Acute Assessment and Plan: Hemoglobin is 9.6. on Epogen. (7) DM2 (diabetes mellitus, type 2): Code(s): E11.9 - Type 2 diabetes mellitus without complications Status: Chronic Assessment and Plan: Management per ho Subjective Date/time seen: 08/26/21 08:00 Interval history: William is a little short of breath today. He is on a BiPAP machine. No chest pain. Exam Narrative: WDWN in NAD skin no rash head ncat lungs clear bilaterally cor reg no rub . 2/6 [place]. abd BS+ nontender and soft ext no edema. Objective Data Vital Signs Vital Signs: Vital Signs - 24 hr 08/25/21 08:21 08/25/21 10:00 08/25/21 12:00 Temperature 35.6 C L 35.9 C L Pulse Rate 78 81 79 Respiratory Rate 18 20 Blood Pressure 124/39 L 114/35 L Pulse Oximetry 100 100 08/25/21 12:43 08/25/21 14:00 08/25/21 16:00 Temperature Pulse Rate 72 79 Respiratory Rate Blood Pressure Pulse Oximetry 95 100 08/25/21 16:36 08/25/21 18:00 08/25/21 20:00 Temperature 36.0 C L 36.8 C Pulse Rate 77 92 87 Respiratory Rate 20 20 Blood Pressure 120/36 L 135/47 L Pulse Oximetry 100 97 08/25/21 21:15 08/25/21 23:35 08/25/21 23:49 Temperature 36.6 C Pulse Rate 90 72 Respiratory Rate 32 H 19 Blood Pressure 126/59 L Pulse Oximetry 93 97 100 08/26/21 00:50 08/26/21 04:00 Temperature 36.4 C Pulse Rate 74 69 Respiratory Rate 20 17 Blood Pressure 136/41 L Pulse Oximetry 96 99 Intake/Output Intake/Output: Intake & Output 08/23/21 08/24/21 08/25/21 08/26/21 23:59 23:59 23:59 23:59 Intake Total 640 1290 Output Total 3900 Balance -3260 1290 Meds/Results Medications: Active Medications Generic Name Dose Route Start Last Admin Trade Name Freq PRN Reason Stop Dose Admin Hydrocodone Bitart/Acetaminophen 1 tab 08/24/21 15:58 08/24/21 21:06 Hydrocodone/Acetaminophen (*Crx) 7.5-325 Mg Tablet PO 1 tab TID PRN Administration PAIN RATED 7-10 Albuterol 1 puff 08/24/21 16:04 08/24/21 20:48 Albuterol Sulfate (*Sp) Aerosol 1 Puff INHALATION 1 puff Q4-6H PRN Administration shortness of breath or wheezing Aspirin 81 mg 08/25/21 09:00 08/25/21 08:18 Aspirin 81 Mg Enteric Tablet PO 81 mg DAILY OTONIEL Administration Buspirone HCl 30 mg 08/24/21 21:00 08/25/21 20:48 Buspirone Hcl 10 Mg Tablet PO 30 mg Q12HR OTONIEL Administratio
[2021-08-26 08:27] LABS: Glucose Point of Care 118 mg/dl (65-105)
[2021-08-26] MEDS: ROSUVASTATIN 10 MG TABLET PO (08:32)
[2021-08-26] MEDS: SACUBITRIL/VALSARTAN 49-51 MG TABLET 1 TABLET PO ×2 (08:32→20:58)
[2021-08-26] MEDS: NICOTINE (*PBKC) 21 MG PATCH 1 PATCH TRANSDERM (08:32)
[2021-08-26] MEDS: PANTOPRAZOLE 40 MG TABLET PO ×2 (08:32→17:41)
[2021-08-26] MEDS: ISOSORBIDE MONONITRATE 30 MG TAB.ER.24H PO (08:33)
[2021-08-26] MEDS: CHOLECALCIFEROL 1,000 UNITS TABLET 2000 UNITS PO (08:33)
[2021-08-26] MEDS: cloNIDine HCL 0.1 MG TABLET PO ×3 (08:33→17:42)
[2021-08-26] MEDS: DOCUSATE SODIUM 100 MG CAPSULE PO (08:33)
[2021-08-26] MEDS: CLOPIDOGREL BISULFATE 75 MG TABLET PO (08:33)
[2021-08-26] MEDS: FUROSEMIDE 80 MG TABLET PO (08:33)
[2021-08-26] MEDS: ASPIRIN 81 MG ENTERIC TABLET PO (08:34)
[2021-08-26] MEDS: busPIRone HCL 10 MG TABLET 30 MG PO ×2 (08:34→20:58)
[2021-08-26] MEDS: SEVELAMER CARBONATE 800 MG TABLET 2400 MG PO ×3 (08:34→17:40)
[2021-08-26] MEDS: ALBUMIN HUMAN 25% 12.5 GM/50ML 50 ML 999 GM (10:08)
[2021-08-26] MEDS: EPOETIN ALFA-EPBX 10,000 UNITS/ML VIAL 10000 UNITS IV PUSH (10:08)
--- NOTE | 2021-08-26 11:22 | PM.PNCARD ---
Progress Note: A&P Assessment and Plan (1) Acute on chronic diastolic CHF (congestive heart failure): Code(s): I50.33 - Acute on chronic diastolic (congestive) heart failure Status: Acute Assessment and Plan: Secondary to volume overload and diastolic dysfunction. Fluid management with hemodialysis (2) Elevated troponin: Code(s): R77.8 - Other specified abnormalities of plasma proteins Status: Acute Assessment and Plan: Patient has chronically elevated troponins every admission, likely non ACS slated cardiac injury and end-stage renal disease. Continue aspirin, statin. Patient has refused cardiac catheterization at this time. He was advised to follow-up with cardiology and consider ischemic workup as an outpatient. (3) CAD (coronary artery disease): Code(s): I25.10 - Atherosclerotic heart disease of [place] coronary artery without angina pectoris Status: Chronic Assessment and Plan: History of PCI in the past. Patient has not seen his latin professor in [place] for quite some time. He cannot recall the doctor's name. Patient advised to follow-up with cardiology. (4) Aortic stenosis: Code(s): I35.0 - Nonrheumatic aortic (valve) stenosis Status: Acute Assessment and Plan: Mild aortic stenosis. (5) End stage renal disease: Code(s): N18.6 - End stage renal disease Status: Chronic Assessment and Plan: End-stage renal disease getting dialysis today (6) Tobacco abuse: Code(s): Z72.0 - Tobacco use Status: Chronic Assessment and Plan: Ongoing smoking Subjective Date/time seen: 08/26/21 11:22 Interval history: Follow-up visit in this 70-year-old man with: Coronary artery disease with previous interventional revascularization of the right coronary artery with care and follow-up elsewhere. Patient has had 2 or 3 recent admissions here with shortness of breath felt to be related to volume overload and his underlying chronic kidney disease and dependency on dialysis. Today he reports to be breathing better no chest pain, hoping to be discharged after he is dialyzed today. Long discussion with the patient about follow-up arrangements in terms of his plans to follow up with his established latin professor in [place] or this practice here at [place]. Also discussion with the patient today about the concept of follow-up catheterization which was mention by Dr. Shabazz over the weekend. Patient says that he is hopeful to be discharged and does not wish to proceed with follow-up angiogram at this time. Date of service 08/26/2021-patient was undergoing dialysis at the time of evaluation. He reported dyspnea on mild exertion. Denied any chest pain. Patient wanted to get evaluated for home oxygen. Exam Narrative: PHYSICAL EXAMINATION: GENERAL: Alert, oriented, no acute distress; undergoing dialysis at the time of evaluation MENTAL STATUS: Anxious EYES: Extraocular movements intact, no pallor EARS: External ears appear normal, hearing grossly normal NOSE: Normal and patent, no discharge MOUTH: Edentulous NECK: Supple, no JVD CHEST: Coarse breath sounds HEART: Normal rate, regular rhythm, normal S1 and S2, systolic murmur ABDOMEN: Soft, nontender NEUROLOGICAL: Alert, oriented, normal speech, no gross motor deficits MUSCULOSKELETAL: No major deformity, no amputation EXTREMITIES: No pedal edema, no clubbing, no cyanosis SKIN: no rash on the exposed area, no cyanosis PSYCHIATRIC: Anxious Objective Data Vital Signs Vital Signs: Vital Signs - 24 hr 08/25/21 12:00 08/25/21 12:43 08/25/21 14:00 Temperature 35.9 C L Pulse Rate 79 72 Respiratory Rate 20 Blood Pressure 114/35 L Pulse Oximetry 100 95 08/25/21 16:00 08/25/21 16:36 08/25/21 18:00 Temperature 36.0 C L Pulse Rate 79 77 92 Respiratory Rate 20 Blood Pressure 120/36 L Pulse Oximetry 100 100 08/25/21 2
[2021-08-26] MEDS: ALBUMIN HUMAN 25% 12.5 GM/50ML 100 ML 999 GM (12:11)
[2021-08-26 12:58] LABS: Glucose Point of Care 76 mg/dl (65-105)
--- NOTE | 2021-08-26 15:52 | HOMEO2EVAL ---
Evaluation was performed at [facility] Home Oxygen Evaluation RC: Home Oxygen (O2) Evaluation Start: 08/26/21 13:54 Freq: ONCE Status: Active Protocol: RPE Activity Type Activity Date Activity User E-Sign Co-Sign Detail Recorded Client Recorded Date Recorded By Document 08/26/21 15:15 GEE [email or web address] 08/26/21 15:52 GEE Document 08/26/21 15:16 GEE [email or web address] 08/26/21 15:52 GEE Document 08/26/21 15:18 GEE [email or web address] 08/26/21 15:52 GEE Document 08/26/21 15:20 GEE [email or web address] 08/26/21 15:52 GEE Document 08/26/21 15:22 GEE [email or web address] 08/26/21 15:52 GEE Document 08/26/21 15:30 GEE [email or web address] 08/26/21 15:52 GEE 08/26/21 08/26/21 08/26/21 15:15 15:16 15:18 Home O2 Evaluation Test Phase Resting Resting Exercise Oxygen Delivery Room Air Nasal Cannula Nasal Cannula Oxygen Flow Rate (L/min) 1 1 Pulse Oximetry (90-100 %) 87 L 93 87 L Home Oxygen Evaluation Comments Treatment Charges O2 Evaluation - Inpatient 08/26/21 08/26/21 08/26/21 15:20 15:22 15:30 Home O2 Evaluation Test Phase Exercise Exercise Resting Oxygen Delivery Nasal Cannula Nasal Cannula Nasal Cannula Oxygen Flow Rate (L/min) 2 2 1 Pulse Oximetry (90-100 %) 87 L 91 93 Home Oxygen Evaluation Comments Pt requires 1 L at rest and 3 L with activity Treatment Charges
--- NOTE | 2021-08-26 15:53 | PCRCNOTE ---
Home O2 eval done, pt requires 1 L at rest and 3 L with activity. He is unsure of O2 company, but does have portable O2 for transport once D/C
--- NOTE | 2021-08-26 16:00 | PCRCNOTE ---
Reviewed past medical records, pt was set up with home O2 with [facility] in Apr 2021.
[2021-08-26 16:07] LABS: Glucose Point of Care 141 mg/dl (65-105)
--- NOTE | 2021-08-26 16:40 | PM.IMPN ---
Progress Note: A&P Assessment and Plan (1) Acute and chronic respiratory failure with hypoxia: Code(s): J96.21 - Acute and chronic respiratory failure with hypoxia Status: Acute Additional Plan 08/25/21 Patient doing better He reports that he is on 3 L of home O2 currently on 3 L Pending HD today Will follow up with his primary care physician with new appointment after he gets home Patient with elevated troponin seen by Cardiology he has declined cardiac catheterization Continue current care Anticipate discharge tomorrow after hemodialysis 08/26/21 Pt would like to go to SNF awaiting placement pt must have oxygen at home pt sp dialysis history of ESRD, CHF severe CAD and tobacco abuse Subjective Date/time seen: 08/26/21 16:40 Interval history: 70-year-old male patient has history of congestive heart failure and end-stage renal disease. He has dialysis on Wednesday and Wednesday face the. Patient stated he has not missed any dialysis. His last dialysis treatment was this past Wednesday. The patient came to the emergency with sudden of shortness of of few hours to ambulance. Patient has a history of being intubated in the past. The patient is currently on a BiPAP good oxygenation. The patient is a full code. Cardiology has been consulted and has already seen the patient. 08/26/2021 Pt had dialysis today due to be discharged was very worried about his SOB and anxious, pt wears 3 liters continuos at home, pt wants to go to SNF placement lives alone Review of Systems Review of Systems: All systems reviewed & are unremarkable except as noted in HPI and below Exam Const: General: other (chronically ill anxious ) Nutritional Appearance: overweight Orientation/consciousness: oriented to person HENMT: Head: normal to inspection Resp: Effort & Inspection: no respiratory distress Auscultation: breath sounds absent and diminished lung sounds Cardio: Rate: regular rate Rhythm: regular rhythm GI: Inspection: normal to inspection GI Palp: No abdominal tenderness, No Guarding due to palpation present (GI) and No Hepatomegaly present Auscultation: normal bowel sounds Neuro: General: oriented to person Objective Data Vital Signs Vital Signs: Vital Signs - 24 hr 08/25/21 18:00 08/25/21 20:00 08/25/21 21:15 Temperature 36.8 C Pulse Rate 92 91 90 Respiratory Rate 20 32 H Blood Pressure 135/47 L Pulse Oximetry 97 93 08/25/21 22:00 08/25/21 23:35 08/25/21 23:49 Temperature 36.6 C Pulse Rate 87 72 Respiratory Rate 19 Blood Pressure 126/59 L Pulse Oximetry 97 100 08/26/21 00:00 08/26/21 00:50 08/26/21 02:00 Temperature Pulse Rate 88 74 79 Respiratory Rate 20 Blood Pressure Pulse Oximetry 96 08/26/21 04:00 08/26/21 06:00 08/26/21 08:00 Temperature 36.4 C Pulse Rate 74 73 73 Respiratory Rate 17 Blood Pressure 136/41 L Pulse Oximetry 99 100 08/26/21 08:38 08/26/21 08:55 08/26/21 09:10 Temperature 36.6 C 37.2 C Pulse Rate 64 81 85 Respiratory Rate 21 H 20 Blood Pressure 121/37 L 99/46 L Pulse Oximetry 96 98 08/26/21 09:15 08/26/21 09:30 08/26/21 09:45 Temperature Pulse Rate 84 73 73 Respiratory Rate Blood Pressure 108/51 L 107/44 L 95/39 L Pulse Oximetry 08/26/21 10:00 08/26/21 10:15 08/26/21 10:31 Temperature Pulse Rate 63 67 62 Respiratory Rate Blood Pressure 87/37 L 99/45 L 100/44 L Pulse Oximetry 08/26/21 10:45 08/26/21 11:00 08/26/21 11:30 Temperature Pulse Rate 63 64 60 Respiratory Rate Blood Pressure 100/44 L 97/46 L 107/45 L Pulse Oximetry 08/26/21 12:00 08/26/21 12:01 08/26/21 12:15 Temperature Pulse Rate 68 65 65 Respiratory Rate Blood Pressure 97/40 L 107/43 L Pulse Oximetry 100 08/26/21 12:22 08/26/21 12:30 08/26/21 14:00 Temperature 36.6 C Pulse Rate 66 72 100 Respiratory Rate 20 Blood Pressure 108/41 L 102/43 L Pulse Oximetry 08/26/21 15:15
[2021-08-26 20:44] LABS: Glucose Point of Care 150 mg/dl (65-105)
[2021-08-26] MEDS: FINASTERIDE 5 MG TABLET PO (20:58)
[2021-08-26] MEDS: rOPINIRole HCL 1 MG TABLET 3 MG PO (20:58)
[2021-08-26] MEDS: PREGABALIN (*CRX) 50 MG CAPSULE 100 MG PO (20:58)
[2021-08-26] MEDS: QUEtiapine FUMARATE 100 MG TABLET PO (20:58)
[2021-08-26] MEDS: MIRTAZAPINE 15 MG TABLET PO (20:58)
[2021-08-26] MEDS: IMIPRAMINE HCL 25 MG TABLET PO (20:58)
[2021-08-27] VITALS (36 sets, daily range): BP systolic 74–191; BP diastolic 29–102; PULSE 52–107; RESP 16–30; TEMP 35.9–37.1; O2SAT 89–100
[2021-08-27 08:09] LABS: Glucose Point of Care 125 mg/dl (65-105)
[2021-08-27] MEDS: ISOSORBIDE MONONITRATE 30 MG TAB.ER.24H PO (08:14)
[2021-08-27] MEDS: ROSUVASTATIN 10 MG TABLET PO (08:14)
[2021-08-27] MEDS: NICOTINE (*PBKC) 21 MG PATCH 1 PATCH TRANSDERM (08:14)
[2021-08-27] MEDS: CLOPIDOGREL BISULFATE 75 MG TABLET PO (08:15)
[2021-08-27] MEDS: CHOLECALCIFEROL 1,000 UNITS TABLET 2000 UNITS PO (08:15)
[2021-08-27] MEDS: busPIRone HCL 10 MG TABLET 30 MG PO (08:15)
[2021-08-27] MEDS: DOCUSATE SODIUM 100 MG CAPSULE PO (08:15)
[2021-08-27] MEDS: PANTOPRAZOLE 40 MG TABLET PO ×2 (08:15→18:10)
[2021-08-27] MEDS: ASPIRIN 81 MG ENTERIC TABLET PO (08:15)
[2021-08-27] MEDS: SEVELAMER CARBONATE 800 MG TABLET 2400 MG PO (08:16)
[2021-08-27] MEDS: FUROSEMIDE 80 MG TABLET PO (08:22)
--- NOTE | 2021-08-27 09:25 | PCOTNOTE ---
Attempted to see pt. for evaluation. Pt. away from room at dialysis
--- NOTE | 2021-08-27 09:28 | PCPTNOTE ---
Initial evaluation attempted at 0900, Pt off the floor for dialysis. Will attempt again in the afternoon.
[2021-08-27] MEDS: SODIUM CHLORIDE 0.9% IV 1,000 ML 999 ML IV CONT (10:56)
[2021-08-27] MEDS: EPOETIN ALFA-EPBX 10,000 UNITS/ML VIAL 10000 UNITS IV PUSH (10:56)
--- NOTE | 2021-08-27 12:07 | PM.PNNEP ---
Progress Note: A&P Assessment and Plan (1) End stage renal disease: Code(s): N18.6 - End stage renal disease Status: Chronic Assessment and Plan: William has shortness of breath. He has got coarse breath sounds. His oxygen level is low. His chest x-ray showed pulmonary edema and cardiomegaly. He had dialysis yesterday and is getting it today to get back on schedule. Will try taking more fluid off. I called his home dialysis unit and asked him to reduce his dry weight because he is not eating. (2) Shortness of breath: Code(s): R06.02 - Shortness of breath Status: Acute Assessment and Plan: This is better with the fluid off. He may need a CPAP machine. (3) Suspected sleep apnea: Code(s): R29.818 - Other symptoms and signs involving the nervous system Status: Acute Assessment and Plan: The patient has not made an appointment with Pulmonary or gotten a sleep test done. He just has not gotten around to it. Will get a blood gas to make sure he is not retaining CO2. Consider having pulmonary see him while he is here? (4) Coronary artery disease: Code(s): I25.10 - Atherosclerotic heart disease of [place] coronary artery without angina pectoris Status: Acute Assessment and Plan: He is not having any chest pain. Troponins are stable. (5) Elevated troponin: Code(s): R77.8 - Other specified abnormalities of plasma proteins Status: Acute Assessment and Plan: Stable. Most likely due to chronic kidney disease. (6) Anemia: Code(s): D64.9 - Anemia, unspecified Status: Acute Assessment and Plan: Hemoglobin is 9.6. on Epogen. (7) DM2 (diabetes mellitus, type 2): Code(s): E11.9 - Type 2 diabetes mellitus without complications Status: Chronic Assessment and Plan: Management per ho Subjective Date/time seen: 08/27/21 12:07 Interval history: William is a little short of breath today. He is on a BiPAP machine at night. He is very anxious. No chest pain. Exam Narrative: WDWN in NAD skin no rash or subcu nodules head ncat lungs clear bilaterally cor reg no rub . 2/6 [place]. abd BS+ nontender and soft ext no edema or cyanosis. Objective Data Vital Signs Vital Signs: Vital Signs - 24 hr 02/15/22 12:15 08/26/21 12:22 08/26/21 12:30 Temperature 36.6 C Pulse Rate 65 66 72 Respiratory Rate 20 Blood Pressure 107/43 L 108/41 L 102/43 L Pulse Oximetry 08/26/21 14:00 08/26/21 15:15 08/26/21 15:16 Temperature Pulse Rate 100 Respiratory Rate Blood Pressure Pulse Oximetry 87 L 93 08/26/21 15:18 08/26/21 15:20 08/26/21 15:22 Temperature Pulse Rate Respiratory Rate Blood Pressure Pulse Oximetry 87 L 87 L 91 08/26/21 15:30 08/26/21 16:00 08/26/21 16:31 Temperature 36.3 C L Pulse Rate 90 90 Respiratory Rate 20 Blood Pressure 129/53 L Pulse Oximetry 93 100 100 08/26/21 18:00 08/26/21 20:00 08/26/21 20:25 Temperature 36.6 C Pulse Rate 88 87 85 Respiratory Rate 20 Blood Pressure 137/45 L Pulse Oximetry 97 98 08/26/21 20:30 08/26/21 22:00 08/27/21 00:00 Temperature 36.5 C Pulse Rate 87 78 87 Respiratory Rate 27 H 30 H Blood Pressure 137/42 L Pulse Oximetry 98 100 08/27/21 02:00 08/27/21 02:25 08/27/21 04:00 Temperature 36.7 C Pulse Rate 80 82 92 Respiratory Rate 21 H 23 H Blood Pressure 131/42 L Pulse Oximetry 95 91 08/27/21 05:10 08/27/21 06:00 08/27/21 08:00 Temperature 36.7 C Pulse Rate 83 76 88 Respiratory Rate 20 20 Blood Pressure 96/43 L Pulse Oximetry 94 100 08/27/21 08:37 08/27/21 08:45 08/27/21 08:56 Temperature 36.6 C Pulse Rate 82 93 92 Respiratory Rate 16 Blood Pressure 97/53 L 93/48 L Pulse Oximetry 98 08/27/21 09:15 08/27/21 09:30 08/27/21 10:15 Temperature Pulse Rate 93 96 104 H Respiratory Rate
[2021-08-27] MEDS: HYDROcodone/acetaminophen (*CRX) 7.5-325 MG TABLET 1 TAB PO ×2 (13:31→18:21)
[2021-08-27 13:33] LABS: Glucose Point of Care 118 mg/dl (65-105)
[2021-08-27] MEDS: CHOLECALCIFEROL 1,000 UNITS TABLET 4000 UNITS PO (13:43)
[2021-08-27] MEDS: cloNIDine HCL 0.1 MG TABLET PO (13:45)
[2021-08-27 15:25] LABS: Alveolar/Arterial O2 Gradient 113.2 mmHg; Base Excess ABG 5.3 mEq/l (+/-2.0); Device NASAL CANNULA; Fractional Inspired Oxygen 32 %; HCO3 ABG 29.9 mEq/l (22.0-26.0); Modified Allen's Test Pass; Oxygen Content ABG 10.6 %vol (16.0-22.0); Oxyhemoglobin 89.1 % THb (90.0-100.0); PCO2 ABG 44.2 mmHg (35.0-45.0); PO2 ABG 63.2 mmHg (80.0-100.0); PO2 FiO2 Ratio Arterial Blood 1.98 %; Site Drawn RIGHT RADIAL; Total Hemoglobin 8.4 g/dL (12.0-18.0); pH ABG 7.448 (7.350-7.450)
--- NOTE | 2021-08-27 15:28 | PM.IMPN ---
Progress Note: A&P Assessment and Plan (1) Acute and chronic respiratory failure with hypoxia: Code(s): J96.21 - Acute and chronic respiratory failure with hypoxia Status: Acute Additional Plan 08/25/21 Patient doing better He reports that he is on 3 L of home O2 currently on 3 L Pending HD today Will follow up with his primary care physician with new appointment after he gets home Patient with elevated troponin seen by Cardiology he has declined cardiac catheterization Continue current care Anticipate discharge tomorrow after hemodialysis 08/26/21 Pt would like to go to SNF, awaiting placement Pt must have oxygen at home 3 liters continuous Pt sp dialysis history of ESRD, CHF severe CAD and tobacco abuse 08/27/21 Pt had dialysis today awaiting SNF placement Subjective Date/time seen: 08/27/21 15:28 Interval history: 70-year-old male patient has history of congestive heart failure and end-stage renal disease. He has dialysis on Wednesday and Wednesday face the. Patient stated he has not missed any dialysis. His last dialysis treatment was this past Wednesday. The patient came to the emergency with sudden of shortness of of few hours to ambulance. Patient has a history of being intubated in the past. The patient is currently on a BiPAP good oxygenation. The patient is a full code. Cardiology has been consulted and has already seen the patient. 08/26/2021 Pt had dialysis today due to be discharged was very worried about his SOB and anxious, pt wears 3 liters continuos at home, pt wants to go to SNF placement lives alone 08/27/2021 Pt had dialysis today awaiting SNF placement for the patient. Review of Systems Review of Systems: All systems reviewed & are unremarkable except as noted in HPI and below Exam Narrative: GEN: NAD, AAOx3, cooperative chronically ill-appearing wearing oxygen HEENT: NCAT, MMM, EOMI Neck: no JVD Heart: S1S2 RRR Lungs: CTA B/l Abd: soft, NT, ND, bowel sounds normoactive Ext: moves all, no cyanosis, no clubbing, no edema left AV fistula Neuro: Normal cognition Psych: Mood and affect congruent Objective Data Vital Signs Vital Signs: Vital Signs - 24 hr 08/26/21 15:30 08/26/21 16:00 08/26/21 16:31 Temperature 36.3 C L Pulse Rate 90 90 Respiratory Rate 20 Blood Pressure 129/53 L Pulse Oximetry 93 100 100 08/26/21 18:00 08/26/21 20:00 08/26/21 20:25 Temperature 36.6 C Pulse Rate 88 87 85 Respiratory Rate 20 Blood Pressure 137/45 L Pulse Oximetry 97 98 08/26/21 20:30 08/26/21 22:00 08/27/21 00:00 Temperature 36.5 C Pulse Rate 87 78 87 Respiratory Rate 27 H 30 H Blood Pressure 137/42 L Pulse Oximetry 98 100 08/27/21 02:00 08/27/21 02:25 08/27/21 04:00 Temperature 36.7 C Pulse Rate 80 82 92 Respiratory Rate 21 H 23 H Blood Pressure 131/42 L Pulse Oximetry 95 91 08/27/21 05:10 08/27/21 06:00 08/27/21 08:00 Temperature 36.7 C Pulse Rate 83 76 88 Respiratory Rate 20 20 Blood Pressure 96/43 L Pulse Oximetry 94 95 08/27/21 08:37 08/27/21 08:45 08/27/21 08:56 Temperature 36.6 C Pulse Rate 82 93 92 Respiratory Rate 16 Blood Pressure 97/53 L 93/48 L Pulse Oximetry 98 08/27/21 09:15 08/27/21 09:30 08/27/21 10:15 Temperature Pulse Rate 93 96 104 H Respiratory Rate Blood Pressure 91/54 L 78/29 L 103/84 Pulse Oximetry 08/27/21 10:30 08/27/21 10:45 08/27/21 11:00 Temperature Pulse Rate 87 80 87 Respiratory Rate Blood Pressure 97/36 L 111/40 L 151/42 H Pulse Oximetry 08/27/21 11:15 08/27/21 11:30 08/27/21 11:45 Temperature Pulse Rate 88 89 89 Respiratory Rate Blood Pressure 170/38 H 171/42 H 191/46 H Pulse Oximetry 08/27/21 12:00 08/27/21 12:15 08/27/21 12:30 Temperature Pulse Rate 97 107 H 90 Respiratory Rate Blood Pressure 135/72 154/102 H 105/64 Pulse Oximetry 08/27/21 12:45 08/27/21 12:59 08/27/21 13:10 Temperature 36.4 C
[2021-08-27] MEDS: ONDANSETRON INJ 4 MG/2 ML VIAL IV PUSH ×2 (16:00→18:21)
[2021-08-27 16:19] LABS: Glucose Point of Care 182 mg/dl (65-105)
--- NOTE | 2021-08-27 17:14 | PC.NURSE ---
Patient arrived back from dialysis at approximately 1:30pm. Patient given morning meds. Last three BP were as follows: 81/40 79/41 and 81/36. Dr Jhaveri made aware. 250 ml bolus ordered and pending administration. Will continue to monitor.
[2021-08-27] MEDS: SODIUM CHLORIDE 0.9% IV 250 ML 999 ML (18:11)
--- NOTE | 2021-08-27 18:25 | PC.NURSE ---
Patient complained of sudden chest pain and nausea. Narco and zofran administered. Will inform doctor of status. STAT EKG pending
--- NOTE | 2021-08-27 18:31 | ECG_ITS ---
Measurements Intervals [place] Rate: 69 P: CO: 0 QRS: -2 QRSD: 134 T: 72 QT: 415 QTc: 447 Interpretive Statements SINUS RHYTHM WITH MARKED FIRST DEGREE AV BLOCK RIGHT BUNDLE BRANCH BLOCK BASELINE WANDER- V4 ABNORMAL ECG Electronically Signed On 08-28-2021 8:57:54 MATTRESS MAKER by Romaine Rivers D.O.
[2021-08-27 19:19] LABS: Anion Gap 11 mmol/L (8-16); Blood Urea Nitrogen 25 mg/dL (9-20); Calcium 8.7 mg/dL (8.4-10.2); Carbon Dioxide 29 mmol/L (22-30); Chloride 96 mmol/L (98-107); Estimated CRCL calculation 15 ml/min; Estimated Glomerular Filt Rate 15; Glucose 221 mg/dL (65-110); Potassium 4.9 mmol/L (3.4-5.0); Sodium 136 mmol/L (137-145)
--- NOTE | 2021-08-27 19:57 | PM.PNCARD ---
Progress Note: A&P Assessment and Plan (1) Acute on chronic diastolic CHF (congestive heart failure): Code(s): I50.33 - Acute on chronic diastolic (congestive) heart failure Status: Acute Assessment and Plan: Secondary to volume overload and diastolic dysfunction. Fluid management with hemodialysis (2) Elevated troponin: Code(s): R77.8 - Other specified abnormalities of plasma proteins Status: Acute Assessment and Plan: Patient has had ongoing chest tightness since his return from dialysis with new changes on his EKG and a severely elevated troponin. I think he is having a STEMI. He is also hypotensive and has not responded to 1 L of IV fluids. He appears to be in cardiogenic shock. He is critically ill. He is being transferred to the intensive care unit. I have discussed the situation with our interventionalist Dr. Schulte who agrees the patient would benefit from emergent cardiac catheterization. I have discussed this with the patient, who agrees to proceed with cardiac catheterization. Reviewed procedure, possible stent, possibility that he has disease that needs to be treated with heart surgery, etc. Discussed with charge nurse, who is calling in the [place] conservation laborer for a STEMI. Will give another 500 cc's NS and start heparin drip. Hospitalist has ordered Levoophed as well. (3) CAD (coronary artery disease): Code(s): I25.10 - Atherosclerotic heart disease of [place] coronary artery without angina pectoris Status: Chronic Assessment and Plan: History of PCI in the past. Patient has not seen his lead c developer in [place] for quite some time. He cannot recall the doctor's name. Patient advised to follow-up with cardiology. (4) Aortic stenosis: Code(s): I35.0 - Nonrheumatic aortic (valve) stenosis Status: Acute Assessment and Plan: Mild aortic stenosis. (5) End stage renal disease: Code(s): N18.6 - End stage renal disease Status: Chronic Assessment and Plan: End-stage renal disease (6) Tobacco abuse: Code(s): Z72.0 - Tobacco use Status: Chronic Assessment and Plan: Ongoing smoking Subjective Date/time seen: 08/27/21 19:57 Interval history: 70-year-old male patient has history of congestive heart failure and end-stage renal disease. He has dialysis on Wednesday and Wednesday face the. Patient stated he has not missed any dialysis. His last dialysis treatment was this past Wednesday. The patient came to the emergency with sudden of shortness of of few hours to ambulance. Patient has a history of being intubated in the past. The patient is currently on a BiPAP good oxygenation. The patient is a full code. Cardiology has been consulted and has already seen the patient. 08/26/2021 Pt had dialysis today due to be discharged was very worried about his SOB and anxious, pt wears 3 liters continuos at home, pt wants to go to SNF placement lives alone 08/27/2021 Pt had dialysis today awaiting SNF placement for the patient. Multiple phone calls w/ RNs. Pt has had chest tightness since his return and has been and little diaphoretic and nauseated. Blood pressures been in the 70s. He received 2 500 cc boluses of normal saline and blood pressure is still 70-80. He denies shortness of breath. O2 sat is good. Troponin is 19. Review of Systems Constitutional: Constitutional: Reports fatigue and Reports weakness Eyes: Eyes: Reports no additional eye complaints ENT: Denies epistaxis Cardiovascular: Cardiovascular: Reports chest pain (Chest tightness with anxiety), Denies pedal edema, Denies leg edema, Denies lightheadedness, Denies palpitations, Reports dyspnea and Reports dyspnea on exertion Respiratory: Respiratory: Denies cough, Denies dyspnea and Reports dyspnea on exertion Gastrointestinal: Gastrointestinal: Denies abdominal pain and Reports nausea Genitourinary: Genitourinary: Denies dysuria Mus
[2021-08-27] MEDS: HEPARIN SODIUM 5,000 UNITS/ML VIAL 4000 UNITS IV PUSH (20:15)
[2021-08-27] MEDS: NOREPINEPHRINE 8 MG/D5W 250 ML 8 MG/250 ML BAG 9.38 MG IV CONT (20:20)
--- NOTE | 2021-08-27 20:21 | PC.NURSE ---
This patient, William Valentin, was transferred to [ ICU] on 08/27/21 at 1945. Personal belongings sent with patient. Report given to [ ]. Appropriate documentation sent with patient.
[2021-08-27 20:25] LABS: Basophils Percent Auto 0.2 % (0.2-1.2); Eosinophils Percent Auto 0.2 % (0-4.4); Hematocrit 26.2 % (42.0-52.0); Immature Granulocyte Absolute 0.09 K/mm3 (0.00-0.031); Immature Granulocyte Percent A 0.9 % (0-0.5); Lymphocytes Absolute Auto 0.45 K/mm3 (0.9-3.2); Lymphocytes Percent Auto 4.3 % (18.3-44.2); Mean Corpuscular HGB Conc 30.5 g/dl (32-36); Mean Corpuscular Hemoglobin 28.3 pg (26-34); Mean Corpuscular Volume 92.6 fl (80-100); Mean Platelet Volume 11.3 fl (7.4-10.4); Monocytes Absolute Auto 0.6 K/mm3 (0.1-0.6); Monocytes Percent Auto 5.7 % (2.6-8.5); Neutrophils Absolute Auto 9.2 K/mm3 (1.3-6.7); Neutrophils Percent Auto 88.7 % (45.5-73.1); Nucleated Red Blood Cells Perc 0.2 % (0.0-0.2); Platelet Count Result 187 k/mm3 (150-375); Red Blood Count 2.83 M/mm3 (4.6-6.20); Red Cell Distribution Width 18.6 % (11.5-14.5); White Blood Count 10.4 K/mm3 (4.5-10.0)
[2021-08-27 20:39] LABS: INR 1.2; Prothrombin Time 15.1 Seconds (11.1-14.7)
[2021-08-27 20:40] LABS: Partial Thromboplastin Time 43.1 SECONDS (22.3-36.8)
[2021-08-27 20:43] LABS: Ovalocytes 1+ (NORMAL); Platelet Estimate Adequate (Adequate)
--- NOTE | 2021-08-27 20:54 | P.PCNBED_ITS ---
Procedures Central Line Placement Right Femoral: Central Line Date: 08/27/21 Central Line Time: 20:30 Discussed w/ the patient/family/POA,the placement of a central venous catheter, including its clinical necessity/indication & associated potential risks, benifits and alternatives.: Yes Time Out Performed: Yes Patient Position: supine Patient placed on monitor/pulse ox: Yes Provider Prep: Max. sterile barrier precautions Central line prep: 2% Chlorhexidine scrub Local anesthesia used: lidocaine 1% Amount of anesthesia used (ml): 3 Sterile US Technique with sterile gel/sterile probe covers: Yes Central line lumen inserted: triple [place]: 7 Length (cm): 16 Depth of Insertion (cm): 16 Post Procedure: sutured in place, good blood return and transparent dressing Post procedure x-ray: other (right femoral no need for an x ray) Patient tolerated procedure: well Complications: none
[2021-08-27] MEDS: SODIUM CHLORIDE 0.9% IV 500 ML IV CONT (21:00)
--- NOTE | 2021-08-27 21:14 | PM.CNCAR ---
Assessment and Plan Additional Plan NSTEMI, shock, First degree HB, Plan C History of Present Illness History of Present Illness Consult date/time: 08/27/21 21:14 Consult reason: chest pain Reason For Visit: Acute Pulmonary Edema, Dialysis Patient Narrative: Patient admitted to hospital 4 days ago wwith progressive SOB and being treated for volume overload and acute on chronic diastolic heart failure. He had Hx of ESRD on HD and has been on dialysis since admission. He had Hxof CAD and PCI to RCA with ROSANNA in 2019 in setting of NSTEMI and has no chest pain since then. Today after dialysis he has been complaining of epigastric pain, pressure like, moderate to sever, non radiating. His BP is noted ot be low and started on levophed. Review of Systems Review of Systems: All systems reviewed & are unremarkable except as noted in HPI and below PMFSH Past Medical History Medical History (Updated 08/25/21 @ 21:54 by Amelia Willoughby MD) Anemia of chronic disease Aortic stenosis AV fistula CAD (coronary artery disease) CHF (congestive heart failure) Chronic back pain DM2 (diabetes mellitus, type 2) End-stage renal disease on hemodialysis Generalized anxiety disorder Hypertension Renal osteodystrophy Suspected sleep apnea Tobacco abuse Surgical History Surgical History (Updated 08/24/21 @ 15:48 by Alaina Mills NP) Cataract extraction status H/O heart artery stent History of tonsillectomy History of total knee arthroplasty Left Hx of cholecystectomy Family History Family History Sibling 2019 novel coronavirus-infected pneumonia (NCIP) Mother Heart disease congestive heart failure Father Heart disease Social History Social History (Updated 08/24/21 @ 15:49 by Alaina Mills NP) Social History: Patient smoked 2 packs per day and told me that he quit smoking 4-5 months ago and he does not drink alcohol. He lives at home alone. He would like to be a full code. If he was unable to make decisions for himself he would like his 1 and only son William Adams to make decisions for him. 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 Code status full code Smoking packs per day: 1.5 Smoking cigarettes per day: 30.0 Years smoked: 57 Smoking pack-years: 85.50 Smoking status: Former smoker Tobacco type: cigarettes Second hand tobacco smoke exposure: Yes Alcohol intake: never Substance use: never Substance use type: does not use Spiritual care concerns: No Meds Home Medications and Allergies Home Medications Medication Instructions Recorded Confirmed Type aspirin 81 mg PO DAILY 04/23/21 08/24/21 History buspirone 30 mg PO BID 04/23/21 08/24/21 History cholecalciferol (vitamin D3) 50 mcg PO EVERY OTHER DAY 04/23/21 08/24/21 History [Vitamin D3] cholecalciferol (vitamin D3) 100 mcg PO EVERY OTHER DAY 04/23/21 08/24/21 History [Vitamin D3] clonidine HCl 0.1 mg PO TID 04/23/21 08/24/21 History clopidogrel 75 mg PO DAILY 04/23/21 08/24/21 History docusate sodium 100 mg PO DAILY 04/23/21 08/24/21 History finasteride 5 mg PO HS 04/23/21 08/24/21 History furosemide 80 mg PO DAILY 04/23/21 08/24/21 History imipramine HCl 25 mg PO HS 04/23/21 08/24/21 History isosorbide mononitrate 30 mg PO DAILY 04/23/21 08/24/21 History nicotine 1 patch TRANSDERMAL DAILY 04/23/21 08/24/21 History omeprazole 20 mg PO BID 04/23/21 08/24/21 History pregabalin 100 mg PO HS 04/23/21 08/24/21 History quetiapine 100 mg PO HS 04/23/21 08/24/21 History ropinirole 3 mg PO HS 04/23/21 08/24/21 History rosuvastatin 10 mg PO DAILY 04/23/21 08/24/21 History albuterol sulfate 1 inh INHALATION Q4-6H PRN #1 ea 04/29/21 08/24/21 Rx amlodipine 5 mg PO BID 08/05/21 08/24/21 History losartan 50 mg PO DAILY 08/05/21 08/24/21 History mirtazapine 15 mg PO HS 08/05/21 08/24/21 History hydrocodone-acetaminophen 1 tablet PO TID PRN 08/24/21
[2021-08-27 21:38] LABS: Activated Clotting Time 172 SEC (74-137)
--- NOTE | 2021-08-27 21:58 | WPDCARDPROC ---
Cardiac Cath Procedure Note Date of procedure:: 08/27/21 Performing physician:: Sandro Schulte MD Assessment and Plan Additional Plan PROCEDURES: 1. LHC and coronary angiogram with LV gram 2. Right heart catheterization INDICATION: NSTEMI and cardiogenic shock ACCESS: rt TOUCH UP WORKER and Lt CFV PROCEDURE DETAILS: Consent obtained and access site prepped and draped in sterile fashion. Access obtained with Fluoroscopy guidance. Coronary angiogram was obtained with JL4 and JR4 and LV gram done with pigtail catheter HEMODYNAMICS: Aorta: 123/70 (on 10 mcg/min of levo) LV: 140/30 RA: 28 RV: 80/30 PA: 80/40 Wedge: 40 with V wave of 70 Aorta sat: 92% RA sat: 31% PA sat 36% Michelle STEVEDORING SUPERINTENDENT 4.1 Michelle CI: 1.9 CORONARY ANGIOGRAM: Left main: Normal and gives LAD and LCX LAD: mild proximal diffuse disease, no obstructive disease in LAD, gives large high diagonal with eccentric calcified lesion 70% stenosis, second diagonal is small and has 80% stenosis. LCX: Gives high OM with mid segment 70% stenosis, LCX and OM with no obstructive disease RCA: Patent stent in mid RCA with 70% stenosis in mid RCA. RCA gives rPDA and rPL with no obstructive disease. LV gram: diffuse global hypokinesia, EF 20% COMPLICATIONS: None CONCLUSIONS: Cardiogenic with LV failure and volume overload Pulm Venous HTN RECOMMENDATIONS Add inoptropic agent and wean levophed consider volume UF with dialysis TTE
[2021-08-27] MEDS: SODIUM CHLORIDE 0.9% IV 1,000 ML 75 ML IV CONT (23:15)
[2021-08-27] MEDS: LORazepam INJ (*CRX) 2 MG/ML VIAL 0.5 MG IV PUSH (23:20)
[2021-08-27] MEDS: DOBUTamine 250 MG/D5W 250 ML 250 MG/250 ML BAG 11.73 MG IV CONT (23:45)
[2021-08-28] VITALS (37 sets, daily range): BP systolic 78–142; BP diastolic 43–93; PULSE 48–100; RESP 12–30; TEMP 36.2–37.3; O2SAT 73–100
--- NOTE | 2021-08-28 | ECHO_ITS ---
Patient Info Name: William Valentin Age: 70 years : 1950 Gender: Male Ht: 68 in Wt: 172 lbs BSA: 1.95 m2 HR: 91 bpm BP: 119 / 53 mmHg Heart Rhythm: Sinus Rhythm Exam Date: 08/28/2021 11:39 AM Exam Location: [facility] Patient Status: Inpatient Admit Date: 08/24/2021 Staff Ordering Physician: Sandro Schulte MD Hat Forming Machine Operator: Sagar Dahl, RIC, RT Attending Provider: Amelia Willoughby MD Exam Type: CA echo dop color flow w con Study Info Indications I21.4 - Non-ST elevation (NSTEMI) myocardial infarction Complete two-dimensional, color flow and Doppler transthoracic echocardiogram is performed with contrast to opacify the left ventricle and to improve the deliniation of the left ventricle endocardial borders. Summary 1. Left ventricular chamber dimension is mildly enlarged. 2. Left ventricular systolic function is moderately reduced, estimated at 30-35%. There is severe hypokinesis of the apex, apical septum, apical anterior, mid inferoseptal, mid anteroseptal and mid anterior wall. There is relative sparing of the bases possible takotsubo cardiomyopathy. Clinical correlation advised. 3. There is moderately increased left ventricular wall thickness. 4. There is severe aortic valve stenosis with a peak velocity of 400.67 cm/s, mean gradient of 36 mmHg, and aortic valve area of 0.86 cm2. 5. There is mild to moderate aortic valve regurgitation. 6. There is mild tricuspid valve regurgitation. 7. Severe pulmonary hypertension, estimated pulmonary arterial systolic pressure is 69 mmHg. 8. Dilated inferior vena cava with no collapse upon inspiration consistent with significantly elevated right atrial pressure, 15 mmHg. Left Ventricle Left ventricular chamber dimension is mildly enlarged. Left ventricular systolic function is moderately reduced, estimated at 30-35%. There is severe hypokinesis of the apex, apical septum, apical anterior, mid inferoseptal, mid anteroseptal and mid anterior wall. There is relative sparing of the bases possible takotsubo cardiomyopathy. Clinical correlation advised. There is moderately increased left ventricular wall thickness. The left ventricular diastolic function is abnormal. There is no thrombus visualized in the left ventricle. Right Ventricle Right ventricular chamber dimension is normal. Right ventricular systolic function is reduced. Left Atria Left atrial chamber dimension is moderately enlarged. Right Atria Right atrial chamber dimension is moderately enlarged. Aortic Valve The aortic valve is not well visualized. There is severe aortic valve stenosis with a peak velocity of 400.67 cm/s, mean gradient of 36 mmHg, and aortic valve area of 0.86 cm2. There is mild to moderate aortic valve regurgitation. There is severe aortic valve calcification. Pulmonic Valve The pulmonic valve is not well visualized. Mitral Valve The mitral valve has thickened leaflets. There is mild mitral valve regurgitation. The mitral valve annulus is moderately calcified. Tricuspid Valve The tricuspid valve leaflets are normal. There is mild tricuspid valve regurgitation. Severe pulmonary hypertension, estimated pulmonary arterial systolic pressure is 69 mmHg. Pericardium/Pleural The pericardium appears normal. There is no pericardial effusion. Inferior Vena Cava Dilated inferior vena cava with no collapse upon inspiration consistent with significantly elevated right atrial pressure, 15 mmHg. Aorta The aortic root size at the sinu
[2021-08-28 03:32] LABS: Hepatitis B Core Ab Total Nonreactive (Nonreactive)
[2021-08-28 04:47] LABS: Basophils Percent Auto 0.2 % (0.2-1.2); Hematocrit 28.6 % (42.0-52.0); Hemoglobin 8.5 g/dL (14.0-18.0); Immature Granulocyte Absolute 0.37 K/mm3 (0.00-0.031); Lymphocytes Absolute Auto 0.36 K/mm3 (0.9-3.2); Mean Corpuscular HGB Conc 29.7 g/dl (32-36); Mean Corpuscular Hemoglobin 27.9 pg (26-34); Mean Corpuscular Volume 93.8 fl (80-100); Mean Platelet Volume 11.1 fl (7.4-10.4); Monocytes Absolute Auto 1.2 K/mm3 (0.1-0.6); Monocytes Percent Auto 6.3 % (2.6-8.5); Neutrophils Absolute Auto 16.2 K/mm3 (1.3-6.7); Neutrophils Percent Auto 89.5 % (45.5-73.1); Platelet Count Result 218 k/mm3 (150-375); Red Blood Count 3.05 M/mm3 (4.6-6.20); Red Cell Distribution Width 18.6 % (11.5-14.5); White Blood Count 18.2 K/mm3 (4.5-10.0)
[2021-08-28 04:58] LABS: Lactic Acid Reflex 3.3 mmol/L (0.7-2.1)
[2021-08-28] MEDS: CENTRAL LINE FLUSH 10 ML IV PUSH ×7 (05:37→20:00)
[2021-08-28 05:43] LABS: Hypochromasia 1+ (NORMAL); Platelet Estimate Adequate (Adequate)
[2021-08-28 06:30] LABS: Albumin Level 3.9 g/dL (3.5-5.1); Alkaline Phosphatase 167 U/L (38-126); Anion Gap 14 mmol/L (8-16); Bilirubin,Total 1.5 mg/dL (0.2-1.3); Blood Urea Nitrogen 35 mg/dL (9-20); Calcium 8.6 mg/dL (8.4-10.2); Carbon Dioxide 26 mmol/L (22-30); Chloride 96 mmol/L (98-107); Estimated CRCL calculation 14 ml/min; Estimated Glomerular Filt Rate 14; Glucose 145 mg/dL (65-110); Phosphorus 5.8 mg/dL (2.5-4.5); Sodium 136 mmol/L (137-145)
[2021-08-28 06:39] LABS: NT Pro B Type Natriuretic Pept > 35000 pg/mL (5-100)
[2021-08-28 07:08] LABS: Alanine Aminotransferase 1460 U/L (4-50); Aspartate Amino Transferase 1813 U/L (17-59)
[2021-08-28 07:19] LABS: Glucose Point of Care 165 mg/dl (65-105)
[2021-08-28 07:45] LABS: Reflex Lactic Acid Yes or No Add Lactic
--- NOTE | 2021-08-28 08:00 | ECG_ITS ---
Measurements Intervals [place] Rate: 87 P: 33 NM: 287 QRS: -41 QRSD: 149 T: 118 QT: 361 QTc: 435 Interpretive Statements SINUS RHYTHM WITH FIRST DEGREE AV BLOCK LEFT AXIS DEVIATION LEFT BUNDLE BRANCH BLOCK BASELINE ARTIFACT- II, III, AVF ABNORMAL ECG Electronically Signed On 08-28-2021 14:09:37 ENGINEERING GROUP LEADER by Romaine Rivers D.O.
[2021-08-28 08:22] LABS: Glucose Point of Care 147 mg/dl (65-105)
[2021-08-28 08:40] LABS: Lactic Acid 6.1 mmol/L (0.7-2.1)
[2021-08-28 08:44] LABS: Anion Gap 13 mmol/L (8-16); Blood Urea Nitrogen 35 mg/dL (9-20); Calcium 8.7 mg/dL (8.4-10.2); Carbon Dioxide 25 mmol/L (22-30); Chloride 97 mmol/L (98-107); Estimated CRCL calculation 12 ml/min; Estimated Glomerular Filt Rate 12; Glucose 147 mg/dL (65-110); Potassium 6.8 mmol/L (3.4-5.0); Sodium 135 mmol/L (137-145)
[2021-08-28 09:35] LABS: Lipase 94 U/L (23-300)
[2021-08-28] MEDS: DEXTROSE 50% 25 GM/50 ML SYRINGE IV PUSH (09:44)
[2021-08-28] MEDS: SODIUM POLYSTYRENE SULFONONATE 15 GM/60 ML BTL 30 GM PO (09:44)
[2021-08-28] MEDS: INSULIN HUMAN REGULAR (*BKC) 100 UNITS/ML 10 UNITS IV PUSH (09:44)
[2021-08-28] MEDS: CALCIUM GLUC 1,000 MG/NS 50 ML 1,000 MG/50 ML BAG 100 MG IVPB (09:49)
--- NOTE | 2021-08-28 10:02 | WPDCNINT ---
Assessment and Plan Assessment and plan (1) Acute on chronic diastolic CHF (congestive heart failure): Code(s): I50.33 - Acute on chronic diastolic (congestive) heart failure Status: Acute Assessment and Plan: Cardiac catheterization showed global hypokinesia with EF 20% He does have TTE scheduled He reduce little amount of urine and will mostly be dependent on dialysis for fluid removal He has dialysis scheduled for today (2) Myocardial infarction: Code(s): I21.9 - Acute myocardial infarction, unspecified Status: Acute Assessment and Plan: Patient had elevated troponin yesterday. He reported chest pain to coil machine supervisor but to me he denied any chest pain. He had cardiac catheterization done emergently last night which showed diffuse but nonobstructive coronary artery disease could not explain elevated troponin as per coil machine supervisor. Patient also had diffuse global hypokinesia with EF of 20% and was volume overloaded He also had pulmonary hypertension Continue aspirin Hold statin due to elevated liver function test Hold ARB and Imdur due to hypotension Echo is ordered (3) Abdominal pain: Code(s): R10.9 - Unspecified abdominal pain Status: Acute Assessment and Plan: Check UA and lipase CT abdomen pelvis was unremarkable except ascites (4) Sepsis: Code(s): A41.9 - Sepsis, unspecified organism Status: Acute Assessment and Plan: Although patient shock appears primarily cardiogenic but he does have elevated white count Check blood cultures UA and urine culture CT suggests may have some infiltrates suggestive of pneumonia but patient does have pulmonary edema Check procalcitonin level Empiric antibiotics broad-spectrum at this time until picture more clear (5) End-stage renal disease on hemodialysis: Code(s): N18.6 - End stage renal disease; Z99.2 - Dependence on renal dialysis Status: Chronic Assessment and Plan: He is being followed by Nephrology and plan for hemodialysis today Hemodialysis has been limited due to soft blood pressure (6) Hyperkalemia: Code(s): E87.5 - Hyperkalemia Status: Acute Assessment and Plan: Patient was given calcium bicarb insulin and dextrose by computer aided drafter this morning He is scheduled for hemodialysis today (7) Cardiomyopathy: Code(s): I42.9 - Cardiomyopathy, unspecified Status: Acute Assessment and Plan: Cardiac catheterization showed diffuse but nonobstructive coronary disease, diffuse hypokinesia and EF of only 20% Currently holding ARB and beta-patricia due to shock TTE is ordered Cardiology is following Try to remove as much fluid possible with hemodialysis (8) Shock: Code(s): R57.9 - Shock, unspecified Status: Acute Assessment and Plan: Patient is in shock with Levophed support This is likely cardiogenic +/- component of sepsis He is overall volume overloaded Continue Levophed and dobutamine Additional Plan DVT prophylaxis -Lovenox Stress ulcer prophylaxis -PPI Nutrition -diabetic and renal diet Code Status -patient wishes to be Full Code Total Critical Care Time - 35 minutes Due to a high probability of clinically significant, life threatening deterioration, the patient required my highest level of preparedness to intervene emergently and I personally spent this critical care time directly and personally managing the patient. This critical care time included obtaining a history; examining the patient; pulse oximetry; ordering and review of studies; arranging urgent treatment with development of a management plan; evaluation of patient's response to treatment; frequent reassessment; and discussions with other providers. It was exclusive of separately billable procedures and treating other patients and teaching time. Please see Assessment and Plan section and the rest of the note for further information on patient assessment and treatment Intensivi
[2021-08-28 10:07] LABS: Procalcitonin 2.6 ng/mL
--- NOTE | 2021-08-28 10:33 | PCOTNOTE ---
Due to change in medical status patient will be discharged from skilled OT at this time. Please re-order when patient is medically appropriate.
[2021-08-28] MEDS: ASPIRIN 81 MG ENTERIC TABLET PO (10:36)
[2021-08-28] MEDS: busPIRone HCL 10 MG TABLET 30 MG PO ×2 (10:37→19:59)
[2021-08-28] MEDS: SEVELAMER CARBONATE 800 MG TABLET 2400 MG PO ×3 (10:37→17:11)
[2021-08-28] MEDS: PANTOPRAZOLE 40 MG TABLET PO ×2 (10:38→17:11)
[2021-08-28] MEDS: CLOPIDOGREL BISULFATE 75 MG TABLET PO (10:38)
--- NOTE | 2021-08-28 10:50 | PCPTNOTE ---
Due to change in medical status patient will be discharged from skilled PT at this time. Please re-order when patient is medically appropriate.
[2021-08-28] MEDS: ENOXAPARIN 30 MG/0.3 ML SYRINGE SUB-Q (11:30)
[2021-08-28] MEDS: ONDANSETRON INJ 4 MG/2 ML VIAL IV PUSH (11:30)
[2021-08-28] MEDS: NOREPINEPHRINE 8 MG/D5W 250 ML 8 MG/250 ML BAG 16.88 MG IV CONT (11:31)
--- NOTE | 2021-08-28 11:50 | PM.PNNEP ---
Progress Note: A&P Assessment and Plan (1) End stage renal disease: Code(s): N18.6 - End stage renal disease Status: Chronic Assessment and Plan: William has shortness of breath. He has got coarse breath sounds. His oxygen level is low. His chest x-ray showed pulmonary edema and cardiomegaly. his lower ejection fraction explains why he has very little tolerance of excess fluid. Perhaps this is why he is not eating well either. He had dialysis yesterday And the day before. His potassium is high so we will do it today Will try taking more fluid off. yesterday only 1L was removed because the patient told the nurse that he refused to have more taken off. (2) Shortness of breath: Code(s): R06.02 - Shortness of breath Status: Acute Assessment and Plan: This is better with the fluid off. He may need a CPAP machine At home. (3) Suspected sleep apnea: Code(s): R29.818 - Other symptoms and signs involving the nervous system Status: Acute Assessment and Plan: The patient has not made an appointment with Pulmonary or gotten a sleep test done. He just has not gotten around to it. his blood gas does not show CO2 retention today but it has in the past. Consider having pulmonary see him while he is here? (4) Coronary artery disease: Code(s): I25.10 - Atherosclerotic heart disease of [place] coronary artery without angina pectoris Status: Acute Assessment and Plan: He is not having any chest pain. Troponins are stable. (5) Elevated troponin: Code(s): R77.8 - Other specified abnormalities of plasma proteins Status: Acute Assessment and Plan: This shot up yesterday. Cardiac catheterization done. (6) Anemia: Code(s): D64.9 - Anemia, unspecified Status: Acute Assessment and Plan: Hemoglobin is 8.5. on Epogen. (7) DM2 (diabetes mellitus, type 2): Code(s): E11.9 - Type 2 diabetes mellitus without complications Status: Chronic Assessment and Plan: Management per Hospitalist Subjective Date/time seen: 08/28/21 11:50 Interval history: William developed chest pain and elevated troponins he. He went for cardiac catheterization and this showed no coronary issues but did show poor LV function. He is now in ICU. He intermittently is on a BiPAP machine. He is still very anxious. No chest pain. Exam Narrative: WDWN Anxious male in NAD skin no rash or subcu nodules head ncat lungs minimally coarse bilaterally cor reg no rub . 2/6 [place]. abd BS+ nontender and soft ext no edema or cyanosis. Objective Data Vital Signs Vital Signs: Vital Signs - 24 hr 08/27/21 12:00 08/27/21 12:15 08/27/21 12:30 Temperature Pulse Rate 97 107 H 90 Respiratory Rate Blood Pressure 135/72 154/102 H 105/64 Pulse Oximetry 93 08/27/21 12:45 08/27/21 12:59 08/27/21 13:10 Temperature 36.4 C Pulse Rate 56 L 92 92 Respiratory Rate 16 Blood Pressure 138/91 H 154/78 H 156/76 H Pulse Oximetry 08/27/21 16:00 08/27/21 16:05 08/27/21 18:45 Temperature 37.1 C 37.0 C Pulse Rate 86 61 Respiratory Rate 16 22 H Blood Pressure 81/40 L 79/41 L 74/34 L Pulse Oximetry 93 98 08/27/21 19:33 08/27/21 20:00 08/27/21 20:20 Temperature 36.7 C Pulse Rate 84 85 85 Respiratory Rate 20 20 Blood Pressure 81/42 L 75/40 L Pulse Oximetry 97 99 08/27/21 23:17 08/27/21 23:28 08/27/21 23:30 Temperature Pulse Rate 56 L 59 L 53 L Respiratory Rate 28 H 29 H 24 H Blood Pressure 88/40 L Pulse Oximetry 90 89 L 97 08/27/21 23:43 08/27/21 23:47 08/28/21 00:00 Temperature Pulse Rate 52 L 52 L 50 L Respiratory Rate 18 18 12 Blood Pressure 92/40 L 92/40 L Pulse Oximetry 98 98 100 08/28/21 00:13 08/28/21 00:15 08/28/21 00:17 Temperature Pulse Rate 48 L 48 L 48 L Respiratory Rate 19 19 Blood Pressure 78/44 L 78/44 L 78/44 L Pu
[2021-08-28 11:57] LABS: Anion Gap 15 mmol/L (8-16); Blood Urea Nitrogen 37 mg/dL (9-20); Calcium 8.9 mg/dL (8.4-10.2); Carbon Dioxide 25 mmol/L (22-30); Chloride 96 mmol/L (98-107); Estimated CRCL calculation 12 ml/min; Estimated Glomerular Filt Rate 11; Glucose 173 mg/dL (65-110); Potassium 5.5 mmol/L (3.4-5.0); Sodium 136 mmol/L (137-145)
[2021-08-28 12:04] LABS: Glucose Point of Care 152 mg/dl (65-105)
[2021-08-28] MEDS: PERFLUTREN LIPID MICROSPHERES 1.5 ML VIAL DILUTED TO 10 ML TOTAL VOLUME IV PUSH (12:07)
--- NOTE | 2021-08-28 12:07 | IVDEFINITY ---
Prior to administration of IV Definity the patient was educated on the risks and benefits of the imaging enhancing agent including potential adverse side effects. The patient verbalized understanding. Allergies were verified. No exclusion criteria were identified and at least one of the following inclusion criteria were met: 1) physician request, 2) patient technically difficult to image (per the [place] [employer] guidelines of two or more segments not discernable within the apical view), or 3) questionable left ventricular function. ?
[2021-08-28] MEDS: DOBUTamine 250 MG/D5W 250 ML 250 MG/250 ML BAG 23.46 MG IV CONT (12:16)
[2021-08-28 12:33] LABS: Add Urine Microscopic? YES; Appearance Urine Clear (Clear); Bacteria Urine Trace /hpf; Bilirubin Urine Negative (Negative); Blood Urine Negative (Negative); Color Urine Amber (Yellow); Glucose Urine UA Negative (Negative); Ketones Urine Negative (Negative); Leukocyte Esterase Ur Trace LEU/UL (Negative); Mucus Urine Rare /lpf; Nitrate Urine Negative (Negative); Protein Urine 3+ mg/dL (Negative); Specific Grav Ur 1.019 (1.001-1.035); Urobilinogen Urine Negative mg/dL (<2.0); WBC Urine 0-3 /hpf
[2021-08-28] MEDS: LORazepam INJ (*CRX) 2 MG/ML VIAL 0.5 MG IV PUSH ×3 (13:16→20:26)
[2021-08-28] MEDS: HYDROcodone/acetaminophen (*CRX) 7.5-325 MG TABLET 1 TAB PO (13:47)
--- NOTE | 2021-08-28 15:50 | PM.PNCARD ---
Progress Note: A&P Assessment and Plan (1) Cardiogenic shock: Code(s): R57.0 - Cardiogenic shock Status: Acute Assessment and Plan: Continue dobutamine, wean pressor support as tolerated. Stabilizing at this time. Highly unusual clinical circumstance. Patient promptly decompensated due to hypotension after hemodialysis with elevated troponin but no high-grade obstructive CAD on left heart catheterization, thrombus or need for PCI. Spent 27 minutes in the care of this patient at bedside including discussions with care team providers, chart review, documentation, and medical decision making. (2) Cardiomyopathy: Qualifiers: Cardiomyopathy type: dilated Qualified Code(s): I42.0 - Dilated cardiomyopathy Code(s): I42.9 - Cardiomyopathy, unspecified Status: Acute Assessment and Plan: EF 20% by left ventriculography, 30-35% on inotrope support by echocardiogram today. Given notation of preserved LV systolic function by echo 3 weeks ago clearly this would be consistent with a very recent or prompt severe declining EF due to a nonischemic process. While not classic echocardiogram suggests possible stress-induced or takotsubo cardiomyopathy. Resume Entresto when BP will tolerate. Patient at high risk for complications including with hemodynamic compromise in ventricular tachycardia and or ventricular fibrillation. Repeat 12 lead EKG. Patient remains critically ill with multiple comorbidities. Prognosis is quite guarded and overall poor. (3) NSTEMI (non-ST elevated myocardial infarction): Code(s): I21.4 - Non-ST elevation (NSTEMI) myocardial infarction Status: Acute Assessment and Plan: No acute plaque rupture or thrombus noted on emergent left heart catheterization but with moderate to severe multi-vessel CAD generally around 70%. Given documentation of preserved LV function by echo 08/05/2021 and severe LV dysfunction currently were suggestive of a nonischemic process. Significant troponin elevation likely related to underlying CAD, profound hypotension and cardiogenic shock. (4) Elevated troponin: Code(s): R77.8 - Other specified abnormalities of plasma proteins Status: Acute Assessment and Plan: Patient has had ongoing chest tightness since his return from dialysis with new changes on his EKG and a severely elevated troponin. I think he is having a STEMI. He is also hypotensive and has not responded to 1 L of IV fluids. He appears to be in cardiogenic shock. He is critically ill. He is being transferred to the intensive care unit. I have discussed the situation with our interventionalist Dr. Schulte who agrees the patient would benefit from emergent cardiac catheterization. I have discussed this with the patient, who agrees to proceed with cardiac catheterization. Reviewed procedure, possible stent, possibility that he has disease that needs to be treated with heart surgery, etc. Discussed with charge nurse, who is calling in the lab analyst for a STEMI. Will give another 500 cc's NS and start heparin drip. Hospitalist has ordered Levoophed as well. (5) Aortic stenosis: Qualifiers: Cardiac valve disease etiology: nonrheumatic Qualified Code(s): I35.0 - Nonrheumatic aortic (valve) stenosis Code(s): I35.0 - Nonrheumatic aortic (valve) stenosis Status: Acute Assessment and Plan: Very confusing clinical picture with prior Echocardiogram 08/05/2021 suggesting mild aortic stenosis although poorly visualized. On echocardiogram today aortic valve is severely calcified, restricted in fairly well visualized although not all 3 leaflets could be identified. Doppler interrogation consistent with severe aortic stenosis today which is a marked change from that noted 08/05/2021. Furthermore, severe aortic stenosis supported in the setting of severe LV dysfunction. Caution to avoid hypotension. (6) LBBB (left bundle branch block)
[2021-08-28 16:06] LABS: Glucose Point of Care 127 mg/dl (65-105)
[2021-08-28 16:56] LABS: Lactic Acid Reflex 2.7 mmol/L (0.7-2.1)
[2021-08-28 19:42] LABS: Reflex Lactic Acid Yes or No Add Lactic
[2021-08-28] MEDS: PREGABALIN (*CRX) 50 MG CAPSULE 100 MG PO (19:59)
[2021-08-28] MEDS: FINASTERIDE 5 MG TABLET PO (19:59)
[2021-08-28] MEDS: IMIPRAMINE HCL 25 MG TABLET PO (19:59)
[2021-08-28] MEDS: MIRTAZAPINE 15 MG TABLET PO (19:59)
[2021-08-28] MEDS: rOPINIRole HCL 1 MG TABLET 3 MG PO (19:59)
[2021-08-28] MEDS: QUEtiapine FUMARATE 100 MG TABLET PO (19:59)
[2021-08-28 20:07] LABS: Lactic Acid 3.5 mmol/L (0.7-2.1)
[2021-08-29] VITALS: BP 121/51; PULSE 92; RESP 14; TEMP 37.2; O2SAT 98
[2021-08-29 00:05] VITALS: BP 121/51; PULSE 92
[2021-08-29] MEDS: DOBUTamine 250 MG/D5W 250 ML 250 MG/250 ML BAG 23.46 MG IV CONT (00:05)
[2021-08-29 00:51] VITALS: BP 120/56; PULSE 93
[2021-08-29 02:00] VITALS: BP 100/54; PULSE 103; RESP 22; O2SAT 94
--- NOTE | 2021-08-29 03:40 | PDCODEBLUE ---
Code Blue Note Code Blue Note Time Arrived at Code Blue: 3:16 am Initial Rhythm on Arrival: PEA Airway Management: Pt being bagged on arrival Chest Compressions: In process on arrival to bedside Result of Code Blue: Pt Cardiac Rhythm Post Code: PEA Code Blue Summary: Amie carlos was called I had 314 in the morning upon arrival chest compressions were ongoing vial bag assisted respirations for the patient initial rhythm was PEA. Patient received 2 rounds of epinephrine and chest compressions 1 amp of bicarb. Family was contacted and and decided to stop all resuscitation efforts.
--- NOTE | 2021-08-29 04:00 | PC.NURSE ---
Patient cardiac arrested at 0314 and CPR was started right away. ROHIT Walter was called and informed of the emergent situation. He stated that he did not want us to continue CPR so it was stopped. He was very grateful for all that we had done for his uncle. He will call us as soon as he knows what home he will be using. The patient has a son, Richmond Valenzuela, but he did not answer his phone and has no voice mail set up.
--- NOTE | 2021-08-29 13:17 | PC.NURSE ---
Patient family came to collect patient belongings at 1300. All belongings handed to patient family member Walter Valentin .
--- NOTE | 2021-09-10 09:25 | PM.DDS ---
Discharge Summary Date and Time Date of : 08/29/21 Time of : 03:21 Provider Pronounced By: Dr. Almonte Probable Cause of Probable Cause of : 1) Acute on chronic diastolic CHF (2) Myocardial infarction: (3) Sepsis: (5) End-stage renal disease on hemodialysis: (7) Cardiomyopathy: (8) Shock:septic plus cardiogenic Summary Hospital Course: Patient had elevated troponin yesterday. He reported chest pain to spice miller but to me he denied any chest pain. He had cardiac catheterization done emergently last night which showed diffuse but nonobstructive coronary artery disease could not explain elevated troponin as per spice miller. Patient also had diffuse global hypokinesia with EF of 20% and was volume overloaded He also had pulmonary hypertension. Pt declined in icu and later coded and . Additional Data Confirmation of as documented by pronouncing clinician: Pupillary Reflex, Palpable Pulses, Response to Stimuli, Heart Tones and Breath Sounds Name of Provider Notified: Dr. Almonte Time Provider Notified: 03:21 Provider Requests Autopsy: No Family Requests Autopsy: No Manager Supply Chain Planning Notified: Yes Date [facility] Notified of : 08/29/21 Time [facility] Notified of : 03:50
== END 2021-08-29 03:21 | disposition expired ==
LOC: ANHED 09:24 → ANHIMU 08-25 12:24 → ANHICU 09-01 09:35 → ANHIMU 09-01 09:35
PROVIDERS: Family Medicine; Internal Medicine; Internal Medicine Cardiovascular Disease; Internal Medicine Interventional Cardiology; Internal Medicine Nephrology; Nurse Practitioner; Admitting Provider Hospitalist; Emergency Provider Emergency Medicine; PCP Family Medicine; Visit Provider Internal Medicine
PROC: 4A023N8 Measurement of Cardiac Sampling and Pressure, Bilateral, Percutaneous Approach (ICD-10-PCS; CPT 93453; principal; 2021-08-27 20:35)
DX: I13.2 Hypertensive heart and chronic kidney disease with heart failure and with stage 5 chronic kidney disease, or end stage renal disease (principal); I50.33 Acute on chronic diastolic (congestive) heart failure; I21.4 Non-ST elevation (NSTEMI) myocardial infarction; N18.6 End stage renal disease; J96.21 Acute and chronic respiratory failure with hypoxia; E11.22 Type 2 diabetes mellitus with diabetic chronic kidney disease; I25.10 Atherosclerotic heart disease of native coronary artery without angina pectoris; D63.8 Anemia in other chronic diseases classified elsewhere; Z87.891 Personal history of nicotine dependence; I35.0 Nonrheumatic aortic (valve) stenosis; R77.8 Other specified abnormalities of plasma proteins; H35.30 Unspecified macular degeneration; Z99.2 Dependence on renal dialysis; G89.29 Other chronic pain; R29.818 Other symptoms and signs involving the nervous system; Z75.1 Person awaiting admission to adequate facility elsewhere; Z95.5 Presence of coronary angioplasty implant and graft; R10.9 Unspecified abdominal pain; E87.5 Hyperkalemia; R57.0 Cardiogenic shock; I42.0 Dilated cardiomyopathy; I44.7 Left bundle-branch block, unspecified; Z99.81 Dependence on supplemental oxygen; Z63.4 Disappearance and death of family member; I46.9 Cardiac arrest, cause unspecified; G25.81 Restless legs syndrome; K21.9 Gastro-esophageal reflux disease without esophagitis; F41.9 Anxiety disorder, unspecified; N25.0 Renal osteodystrophy; Z79.899 Other long term (current) drug therapy
CPT/HCPCS: 36415; 36600; 71045; 71250; 74176; 80048; 80053; 80069; 81001; 82728; 82805; 82948; 83605; 83615; 83690; 83735; 83880; 84100; 84145; 84443; 84484; 85025; 85610; 85730; 86140; 86704; 86706; 87040; 87340; 92950; 93005; 93460; 94002; 94003; 94618; 94640; 96374; 97161; 97165; 99285; A9270; C1751; C1769; C1887; C1894; C8929; G0257; J0171; J0610; J1250; J1644; J1650; J1815; J1940; J2060; J2405; J2543; J3370; J7030; J7040; J7050; P9047; Q5105; Q9957